=== PATIENT | male | born 1960 | race Caucasian/White ===

== ENCOUNTER 2017-03-19 15:08 | Emergency (ER) | payer MEDICAID ==
[~2017-03-19] VITALS: Ht 188 cm; Wt 109.0 kg
[~2017-03-19 15:08] MED LIST: ACET-1757 PO; ACET-1757 PR; AMOX1TAB12 PO; AMOX1TAB64 PO; CIPR500T3 PO; CLIN300C8 PO; DIPH1TAB PO; DOCU-131 PO; ENOX40SY4 SQ; FOLI-17 PO; GLIP5TAB10 PO; HYDR-3237 PO; INSU100I28 SQ-INSULIN; INSU100V5 SQ-INSULIN; LACT1CAP24 PO; LISI2.5T PO; LISINOPRIL; METF850T2 PO; METFORMIN; MULT-257 PO; NYST15CR2 TP; PANT40TA3 PO; SENN-31 PO; THIA100T10 PO; VITS5OIN TP; [UNRECOGNIZED DRUG - OTHER]
[2017-03-19] MEDS ORDERED: SODIUM CHLORIDE FLUSH 10ML SYR IVF ONE (15:30)
[2017-03-19] MEDS ORDERED: ASPIRIN 81 MG TABLET CHEW PO ONE (15:30)
[2017-03-19 15:41] LABS: HEMATOCRIT 44.7 % (39.2-51.8); HEMOGLOBIN 15.1 g/dL (13.7-18.0); WHITE BLOOD COUNT 7.8 x10^3/uL (3.4-10)
[2017-03-19 15:55] LABS: BLOOD UREA NITROGEN 13 mg/dL (7-18)
[2017-03-19 16:02] LABS: IS PT STATUS REG ER OR PRE ER? YES
[2017-03-19 16:55] VITALS: BP 136/92
== END 2017-03-19 17:29 | disposition home or self-care (01) ==
LOC: ED 17:23
DX: R42 Dizziness and giddiness (principal); H61.22 Impacted cerumen, left ear; I10 Essential (primary) hypertension; J45.909 Unspecified asthma, uncomplicated; E11.40 Type 2 diabetes mellitus with diabetic neuropathy, unspecified; Z86.718 Personal history of other venous thrombosis and embolism; Z91.14 Patient's other noncompliance with medication regimen
CPT/HCPCS: 36415; 71020; 80048; 82040; 83880; 84484; 85025; 93005; 99285

== ENCOUNTER 2017-04-10 07:30 | Emergency (ER) | payer SELFPAY ==
[~2017-04-10] VITALS: Ht 188 cm; Wt 118.7 kg
[2017-04-10] MEDS ORDERED: ALBUTEROL SULFATE 2.5 MG/3 ML NPPB ONE (08:00)
[2017-04-10] MEDS ORDERED: ALBUTEROL SULFATE 2.5 MG/3 ML ONE (08:07)
[2017-04-10 08:27] VITALS: BP 97/53
== END 2017-04-10 08:51 | disposition home or self-care (01) ==
LOC: ED 08:45
DX: J98.01 Acute bronchospasm (principal); I10 Essential (primary) hypertension; E66.9 Obesity, unspecified
CPT/HCPCS: 71020; 99284; J7613

== ENCOUNTER 2017-05-13 11:48 | Inpatient (IN) | payer MEDICAID, OTHER ==
[~2017-05-13] VITALS: Ht 188 cm; Wt 104.6 kg
[2017-05-13] MEDS ORDERED: SODIUM CHLORIDE 0.9% 1,000 ML IV ONE (12:22)
[2017-05-13] MEDS ORDERED: SODIUM CHLORIDE FLUSH 10ML SYR IVF ONE (12:30)
[2017-05-13] MEDS ORDERED: ASPIRIN 81 MG TABLET CHEW PO ONE (12:30)
[2017-05-13] MEDS ORDERED: ASPIRIN 81 MG TABLET CHEW ONE (12:32)
[2017-05-13 12:38] LABS: BASOPHILS # (AUTO) 0.03 x10^3/uL (0-0.1); BASOPHILS % (AUTO) 0 % (0-1); EOSINOPHILS # (AUTO) 0.09 x10^3/uL (0-0.4); EOSINOPHILS % (AUTO) 1 % (1-7); LYMPHOCYTES # (AUTO) 2.01 x10^3/uL (1-3.4); LYMPHOCYTES % (AUTO) 25 % (22-44); MD NO; MEAN CORPUSCULAR HEMOGLOBIN 31.1 pg (27.5-34.5); MEAN CORPUSCULAR HGB CONC 33.5 g/dL (33.2-36.2); MEAN CORPUSCULAR VOLUME 92.7 fL (81-97); MEAN PLATELET VOLUME 7.8 fL (7.4-10.4); MONOCYTES # (AUTO) 0.53 x10^3/uL (0.2-0.8); MONOCYTES % (AUTO) 7 % (2-9); NEUTROPHILS # (AUTO) 5.35 x10^3/uL (1.8-6.8); NEUTROPHILS % (AUTO) 67 % (42-75); PLATELET COUNT 181 x10^3/uL (130-400); RED CELL DISTRIBUTION WIDTH 14.1 % (9.4-14.8)
[2017-05-13 12:50] LABS: ALANINE AMINOTRANSFERASE 14 U/L (12-78); ALBUMIN 2.8 g/dL (3.4-5.0); ANION GAP 7 mmol/L (5-15); CALCIUM 7.8 mg/dL (8.5-10.1); CHLORIDE 106 mmol/L (98-107); CREATININE 1.11 mg/dL (0.7-1.3)
[2017-05-13 12:54] LABS: ALKALINE PHOSPHATASE 100 U/L (45-117); BILIRUBIN,TOTAL 0.4 mg/dL (0.2-1.0); TOTAL PROTEIN 6.6 g/dL (6.4-8.2); TROPONIN I < 0.015 ng/mL (0.000-0.045)
[2017-05-13 14:32] VITALS: BP 123/81
[2017-05-13] MEDS ORDERED: GUAIFENESIN/DM 200-20MG, 10ML UDC PO PRN (15:00)
[2017-05-13] MEDS ORDERED: ONDANSETRON 2MG/ML, 2ML IVPush PRN (15:00)
[2017-05-13] MEDS ORDERED: ACETAMINOPHEN 325 MG TABLET PO PRN (15:00)
[2017-05-13] MEDS ORDERED: NITROGLYCERIN 0.4 MG BOTTLE (25 TABS) SL PRN (15:00)
[2017-05-13] MEDS: CEFTRIAXONE 2 GM in DEXTROSE 5% 50 ML IV SCH (16:30)
[2017-05-13] MEDS: ENOXAPARIN 40 MG/0.4 ML SQ SCH (16:36)
[2017-05-13] MEDS: INSULIN ASPART 100 UNITS/ML, PEN SQ-INSULIN SCH ×2 (16:40→20:08)
[2017-05-13] MEDS: AZITHROMYCIN 500 MG in SODIUM CHLORIDE 0.9% 250 ML IV SCH (17:51)
[2017-05-13 19:05] LABS: TROPONIN I < 0.015 ng/mL (0.000-0.045)
[2017-05-13 19:09] LABS: HEMOGLOBIN A1C 7.9 % (4.2-6.3)
[2017-05-13 19:39] VITALS: BP 125/71
[2017-05-13] MEDS: ZOLPIDEM 5MG TABLET PO PRN (20:35)
[2017-05-14 03:33] LABS: CHOL/HDL RATIO 2.9; CHOLESTEROL, TOTAL 132 mg/dL (140-239); HDL CHOL % 35 % (26-37); HDL CHOLESTEROL (DIRECT) 46 mg/dL (40-60); LDL CHOLESTEROL,CALCULATED 67 mg/dL (54-169); LDL/HDL RATIO 1.5 (0.5-3.0); TRIGLYCERIDES 97 mg/dL (50-200); TROPONIN I < 0.015 ng/mL (0.000-0.045); VLDL CHOLESTEROL 19 mg/dL (0-25)
[2017-05-14 04:09] VITALS: BP 130/73
[2017-05-14 07:24] VITALS: BP 147/92
[2017-05-14] MEDS ORDERED: REGADENOSON 0.4 MG/5 ML SYRINGE ONE (07:42)
[2017-05-14] MEDS: INSULIN ASPART 100 UNITS/ML, PEN SQ-INSULIN SCH ×4 (09:18→20:21)
[2017-05-14] MEDS ORDERED: FUROSEMIDE 40 MG/4 ML IV ONE (13:30)
[2017-05-14] MEDS ORDERED: POTASSIUM CHLORIDE 20 MEQ TAB.ER.PRT PO ONE (13:30)
[2017-05-14] MEDS ORDERED: VERAPAMIL 2.5 MG/ML, 2ML ONE (13:46)
[2017-05-14] MEDS ORDERED: BIVALIRUDIN 250 MG ONE (13:46)
[2017-05-14] MEDS ORDERED: TICAGRELOR 90 MG TABLET ONE (13:46)
[2017-05-14] MEDS ORDERED: FENTANYL PF 100 MCG/2ML ONE (13:46)
[2017-05-14] MEDS ORDERED: LIDOCAINE 2%, 20ML ONE (13:47)
[2017-05-14] MEDS ORDERED: HEPARIN 1,000 UNITS/ML, 10ML ONE (13:47)
[2017-05-14] MEDS ORDERED: MIDAZOLAM 1 MG/ML, 2ML ONE (13:47)
[2017-05-14] MEDS ORDERED: FLU VACC QS2017-18 (36MOS+) UP/PF 0.5 ML IM-VACC ONE (14:00)
[2017-05-14] MEDS ORDERED: DIPHENHYDRAMINE 50 MG/ML, 1ML ONE (14:45)
[2017-05-14 15:00] VITALS: BP 122/78
[2017-05-14] MEDS ORDERED: SODIUM CHLORIDE 0.9% 1,000 ML IV SCH (15:06)
[2017-05-14] MEDS: ASPIRIN 325 MG TABLET PO SCH (16:56)
[2017-05-14] MEDS: CEFTRIAXONE 2 GM in DEXTROSE 5% 50 ML IV SCH (16:56)
[2017-05-14] MEDS: CARVEDILOL 3.125 MG TABLET PO SCH (16:57)
[2017-05-14] MEDS: ENOXAPARIN 40 MG/0.4 ML SQ SCH (16:58)
[2017-05-14 18:18] VITALS: BP 109/67
[2017-05-14] MEDS: AZITHROMYCIN 500 MG in SODIUM CHLORIDE 0.9% 250 ML IV SCH (18:24)
[2017-05-14] MEDS ORDERED: ATORVASTATIN 40 MG TABLET PO SCH (21:00)
[2017-05-14] MEDS ORDERED: ATORVASTATIN 20 MG TABLET PO SCH (21:00)
[2017-05-14] MEDS: ZOLPIDEM 5MG TABLET PO PRN (22:31)
[2017-05-15 05:22] VITALS: BP 116/85
[2017-05-15] MEDS: CARVEDILOL 3.125 MG TABLET PO SCH (05:25)
[2017-05-15] MEDS ORDERED: ISOSORBIDE MONONITRATE ER 30 MG TABLET ONE (07:53)
[2017-05-15] MEDS ORDERED: LISINOPRIL 5 MG TABLET ONE (07:53)
[2017-05-15] MEDS: ASPIRIN 325 MG TABLET PO SCH (07:57)
[2017-05-15 08:00] VITALS: BP 129/82
[2017-05-15] MEDS: INSULIN ASPART 100 UNITS/ML, PEN SQ-INSULIN SCH ×2 (08:04→12:24)
[2017-05-15] MEDS ORDERED: ISOSORBIDE MONONITRATE ER 30 MG TABLET PO SCH (09:00)
[2017-05-15] MEDS ORDERED: LISINOPRIL 5 MG TABLET PO SCH (09:00)
[2017-05-15] MEDS ORDERED: CARV3.1212 PO (10:06)
[2017-05-15] MEDS ORDERED: ASPI-621 PO (10:06)
[2017-05-15] MEDS ORDERED: LISI5TAB7 PO (10:06)
[2017-05-15] MEDS ORDERED: CEFD300C37 PO (10:06)
[2017-05-15] MEDS ORDERED: ATOR40TA78 PO (10:06)
[2017-05-15] MEDS ORDERED: DOXY100T PO (10:06)
[2017-05-15] MEDS ORDERED: ISOS30TA8 PO (10:06)
[2017-05-16] MEDS ORDERED: ALBU6.7H IH (10:48)
[2017-05-16] MEDS ORDERED: METH4TAB2 PO (10:48)
== END 2017-05-15 13:28 | disposition home or self-care (01) | DRG 286 ==
LOC: ED 13:16 → 5SO 13:20
PROVIDERS: ADMIT Internal Medicine; ATTEND Internal Medicine
PROC: 4A023N7 Measurement of Cardiac Sampling and Pressure, Left Heart, Percutaneous Approach (ICD-10-PCS; principal; 2017-05-14)
PROC: B2111ZZ Fluoroscopy of Multiple Coronary Arteries using Low Osmolar Contrast (ICD-10-PCS; 2017-05-14)
PROC: B2151ZZ Fluoroscopy of Left Heart using Low Osmolar Contrast (ICD-10-PCS; 2017-05-14)
DX: I25.110 Atherosclerotic heart disease of native coronary artery with unstable angina pectoris (principal); J18.9 Pneumonia, unspecified organism; I42.9 Cardiomyopathy, unspecified; I25.82 Chronic total occlusion of coronary artery; I11.0 Hypertensive heart disease with heart failure; I50.20 Unspecified systolic (congestive) heart failure; M86.9 Osteomyelitis, unspecified; E11.9 Type 2 diabetes mellitus without complications; I45.4 Nonspecific intraventricular block; Y99.0 Civilian activity done for income or pay; Z79.84 Long term (current) use of oral hypoglycemic drugs; Z89.429 Acquired absence of other toe(s), unspecified side; Z79.82 Long term (current) use of aspirin; Z82.49 Family history of ischemic heart disease and other diseases of the circulatory system; Z82.3 Family history of stroke; Z23 Encounter for immunization
CPT/HCPCS: 36415; 71045; 78452; 80053; 80061; 82947; 82962; 83036; 84484; 85025; 90686; 92920; 93005; 93017; 93458; 99156; 99157; 99285; C1769; C1894; C8929; J0456; J0583; J0696; J1644; J1650; J1940; J2250; J2785; J3010; J3490; 92928; A9502; C1725; C1887; C9898; J1200; J7030; J7050; Q9967

== ENCOUNTER 2017-05-15 13:48 | Inpatient (IN) | payer MEDICAID ==
[~2017-05-15] VITALS: Ht 188 cm; Wt 114.0 kg
[~2017-05-15 13:48] MED LIST changes: +ASPI-621 PO; +ATOR40TA78 PO; +CARV3.1212 PO; +CEFD300C37 PO; +DOXY100T PO; +ISOS30TA8 PO; +LISI5TAB7 PO
[2017-05-15] MEDS ORDERED: SODIUM CHLORIDE FLUSH 10ML SYR IVF ONE (14:00)
[2017-05-15 14:41] LABS: BASOPHILS # (AUTO) 0.08 x10^3/uL (0-0.1); BASOPHILS % (AUTO) 1 % (0-1); EOSINOPHILS # (AUTO) 0.11 x10^3/uL (0-0.4); EOSINOPHILS % (AUTO) 1 % (1-7); LYMPHOCYTES # (AUTO) 1.49 x10^3/uL (1-3.4); LYMPHOCYTES % (AUTO) 19 % (22-44); MD NO; MEAN CORPUSCULAR HEMOGLOBIN 30.9 pg (27.5-34.5); MEAN CORPUSCULAR HGB CONC 33.5 g/dL (33.2-36.2); MEAN CORPUSCULAR VOLUME 92.3 fL (81-97); MEAN PLATELET VOLUME 7.9 fL (7.4-10.4); MONOCYTES # (AUTO) 0.62 x10^3/uL (0.2-0.8); MONOCYTES % (AUTO) 8 % (2-9); NEUTROPHILS # (AUTO) 5.64 x10^3/uL (1.8-6.8); NEUTROPHILS % (AUTO) 71 % (42-75); PLATELET COUNT 209 x10^3/uL (130-400); RED BLOOD COUNT 4.98 x10^6/uL (4.38-5.82)
[2017-05-15 14:50] LABS: ALBUMIN 3.2 g/dL (3.4-5.0); ANION GAP 11 mmol/L (5-15); CALCIUM 8.6 mg/dL (8.5-10.1); CHLORIDE 100 mmol/L (98-107); CREATININE 1.51 mg/dL (0.7-1.3)
[2017-05-15 14:55] LABS: TROPONIN I < 0.015 ng/mL (0.000-0.045)
[2017-05-15] MEDS ORDERED: SODIUM CHLORIDE 0.9% 1,000ML IVBOLUS ONE (15:00)
[2017-05-15] MEDS ORDERED: SODIUM CHLORIDE 0.9% 1,000 ML IV SCH (16:30)
[2017-05-15] MEDS ORDERED: ACETAMINOPHEN 325 MG TABLET PO PRN (16:30)
[2017-05-15] MEDS ORDERED: HEPARIN 5,000 UNITS/ML, 1ML ONE (17:02)
[2017-05-15] MEDS: HEPARIN 5,000 UNITS/ML, 1ML SQ SCH (17:08)
[2017-05-15 17:42] VITALS: BP 98/66
[2017-05-15] MEDS: CARVEDILOL 3.125 MG TABLET PO SCH (18:00)
[2017-05-15 18:01] VITALS: BP 98/66
[2017-05-15] MEDS ORDERED: ATORVASTATIN 40 MG TABLET PO SCH (21:00)
[2017-05-15] MEDS ORDERED: ZOLPIDEM 5MG TABLET PO PRN (21:00)
[2017-05-15] MEDS: CEFDINIR 300 MG CAPSULE PO SCH (21:06)
[2017-05-15] MEDS: GUAIFENESIN ER 600 MG TABLET PO SCH (21:06)
[2017-05-15] MEDS: DOXYCYCLINE 100MG TABLET PO SCH (21:06)
[2017-05-15 21:37] VITALS: BP 115/71
[2017-05-15 21:40] VITALS: BP 101/66
[2017-05-15 21:42] VITALS: BP 101/71
[2017-05-16] MEDS: HEPARIN 5,000 UNITS/ML, 1ML SQ SCH ×2 (01:14→08:30)
[2017-05-16 01:19] VITALS: BP 117/76
[2017-05-16 05:15] LABS: MEAN CORPUSCULAR HEMOGLOBIN 31.7 pg (27.5-34.5); MEAN CORPUSCULAR HGB CONC 33.8 g/dL (33.2-36.2); PLATELET COUNT 170 x10^3/uL (130-400); RED BLOOD COUNT 4.28 x10^6/uL (4.38-5.82)
[2017-05-16 05:25] LABS: ALBUMIN 2.7 g/dL (3.4-5.0); CALCIUM 8.4 mg/dL (8.5-10.1)
[2017-05-16] MEDS: CARVEDILOL 3.125 MG TABLET PO SCH (05:49)
[2017-05-16 05:50] LABS: RED CELL DISTRIBUTION WIDTH 14.2 % (9.4-14.8)
[2017-05-16 05:52] LABS: BASOPHILS # (AUTO) 0.05 x10^3/uL (0-0.1); BASOPHILS % (AUTO) 1 % (0-1); EOSINOPHILS # (AUTO) 0.14 x10^3/uL (0-0.4); EOSINOPHILS % (AUTO) 3 % (1-7); LYMPHOCYTES % (AUTO) 32 % (22-44); MD SCAN; MONOCYTES # (AUTO) 0.49 x10^3/uL (0.2-0.8); MONOCYTES % (AUTO) 9 % (2-9); NEUTROPHILS # (AUTO) 2.94 x10^3/uL (1.8-6.8); NEUTROPHILS % (AUTO) 55 % (42-75)
[2017-05-16 06:39] LABS: ALANINE AMINOTRANSFERASE 12 U/L (12-78); ALKALINE PHOSPHATASE 74 U/L (45-117); ANION GAP 9 mmol/L (5-15); BILIRUBIN,TOTAL 0.4 mg/dL (0.2-1.0); CHLORIDE 108 mmol/L (98-107); CREATININE 0.87 mg/dL (0.7-1.3)
[2017-05-16 08:00] VITALS: BP 140/81
[2017-05-16] MEDS: DOXYCYCLINE 100MG TABLET PO SCH (08:27)
[2017-05-16] MEDS: GUAIFENESIN ER 600 MG TABLET PO SCH (08:27)
[2017-05-16] MEDS: CEFDINIR 300 MG CAPSULE PO SCH (08:28)
[2017-05-16] MEDS ORDERED: LISINOPRIL 5 MG TABLET PO SCH (09:00)
[2017-05-16] MEDS ORDERED: ASPIRIN 81 MG TABLET EC PO SCH (09:00)
[2017-05-16 09:05] VITALS: BP 124/82
[2017-05-16] MEDS ORDERED: ALBU6.7H IH (10:48)
[2017-05-16] MEDS ORDERED: METH4TAB2 PO (10:48)
[2017-05-16] MEDS ORDERED: methylPREDNISolone 4mg DOSE PACK PO SCH (11:00)
[2017-05-16 11:08] VITALS: BP_SYST 128; BP_SYST 132; BP_DIAS 80; BP_DIAS 82; BP_DIAS 84
== END 2017-05-16 13:33 | disposition home or self-care (01) | DRG 682 ==
LOC: ED 14:45 → EDIP 15:18 → 4WST 17:32
PROVIDERS: ADMIT Family Medicine; ATTEND Family Medicine
DX: N17.0 Acute kidney failure with tubular necrosis (principal); J18.9 Pneumonia, unspecified organism; E11.40 Type 2 diabetes mellitus with diabetic neuropathy, unspecified; I11.0 Hypertensive heart disease with heart failure; I42.9 Cardiomyopathy, unspecified; I50.22 Chronic systolic (congestive) heart failure; I25.10 Atherosclerotic heart disease of native coronary artery without angina pectoris; I34.0 Nonrheumatic mitral (valve) insufficiency; J45.909 Unspecified asthma, uncomplicated; T50.2X5A Adverse effect of carbonic-anhydrase inhibitors, benzothiadiazides and other diuretics, initial encounter; Z79.84 Long term (current) use of oral hypoglycemic drugs; Z82.49 Family history of ischemic heart disease and other diseases of the circulatory system; Z86.711 Personal history of pulmonary embolism; Z95.5 Presence of coronary angioplasty implant and graft; Z89.429 Acquired absence of other toe(s), unspecified side
CPT/HCPCS: 36415; 71046; 80048; 80053; 82040; 83605; 84484; 85025; 93005; 96360; 96372; J1644; J7509; J7030

== ENCOUNTER 2017-05-30 09:17 | Emergency (ER) | payer MEDICAID ==
[~2017-05-30] VITALS: Ht 188 cm; Wt 115.7 kg
[~2017-05-30 09:17] MED LIST changes: +ALBU6.7H IH; +METH4TAB2 PO
[2017-05-30 10:01] LABS: BASOPHILS # (AUTO) 0.15 x10^3/uL (0-0.1); BASOPHILS % (AUTO) 2 % (0-1); EOSINOPHILS # (AUTO) 0.26 x10^3/uL (0-0.4); EOSINOPHILS % (AUTO) 3 % (1-7); LYMPHOCYTES # (AUTO) 2.54 x10^3/uL (1-3.4); LYMPHOCYTES % (AUTO) 25 % (22-44); MD NO; MEAN CORPUSCULAR HEMOGLOBIN 31.1 pg (27.5-34.5); MEAN CORPUSCULAR HGB CONC 33.4 g/dL (33.2-36.2); MEAN CORPUSCULAR VOLUME 93.3 fL (81-97); MEAN PLATELET VOLUME 7.8 fL (7.4-10.4); MONOCYTES # (AUTO) 0.69 x10^3/uL (0.2-0.8); MONOCYTES % (AUTO) 7 % (2-9); NEUTROPHILS # (AUTO) 6.45 x10^3/uL (1.8-6.8); NEUTROPHILS % (AUTO) 64 % (42-75); PLATELET COUNT 297 x10^3/uL (130-400); RED BLOOD COUNT 5.07 x10^6/uL (4.38-5.82); RED CELL DISTRIBUTION WIDTH 14.9 % (9.4-14.8)
[2017-05-30 10:08] LABS: ALBUMIN 3.6 g/dL (3.4-5.0); ANION GAP 9 mmol/L (5-15); CALCIUM 8.9 mg/dL (8.5-10.1); CHLORIDE 103 mmol/L (98-107); CREATININE 1.01 mg/dL (0.7-1.3); HIGH-SENSITIVITY CRP 0.26 mg/dL (0.02-0.30)
[2017-05-30 10:58] LABS: HEMOGLOBIN A1C 7.4 % (4.2-6.3)
[2017-05-30 11:02] VITALS: BP 127/74
== END 2017-05-30 11:07 | disposition home or self-care (01) ==
LOC: ED 09:35
DX: E11.649 Type 2 diabetes mellitus with hypoglycemia without coma (principal); E11.40 Type 2 diabetes mellitus with diabetic neuropathy, unspecified; I50.9 Heart failure, unspecified; I11.0 Hypertensive heart disease with heart failure; M86.9 Osteomyelitis, unspecified; J45.909 Unspecified asthma, uncomplicated; Z86.711 Personal history of pulmonary embolism
CPT/HCPCS: 36415; 70551; 80048; 82040; 83036; 85025; 86141; 93005; 99285

== ENCOUNTER → 2017-07-03 | Outpatient (CLI) | payer MEDICAID | LOC: CVU 07:31 | PROVIDERS: ATTEND Internal Medicine Cardiovascular Disease | DX: I42.9 Cardiomyopathy, unspecified (principal); E11.9 Type 2 diabetes mellitus without complications; I10 Essential (primary) hypertension | CPT/HCPCS: C8929 ==

== ENCOUNTER 2017-09-06 12:27 | Emergency (ER) | payer MEDICAID ==
[~2017-09-06] VITALS: Ht 188 cm; Wt 118.0 kg
[2017-09-06] MEDS ORDERED: METF500T4 PO (13:12)
[2017-09-06] MEDS ORDERED: GLIP5TAB10 PO (13:12)
[2017-09-06] MEDS ORDERED: LISI-170 PO (13:12)
[2017-09-06] MEDS ORDERED: ALBUTEROL/IPRATROPIUM 2.5MG/0.5MG, 3 ML ONE (13:24)
[2017-09-06 13:25] LABS: BASOPHILS # (AUTO) 0.09 x10^3/uL (0-0.1); BASOPHILS % (AUTO) 1 % (0-1); EOSINOPHILS # (AUTO) 0.24 x10^3/uL (0-0.4); EOSINOPHILS % (AUTO) 3 % (1-7); LYMPHOCYTES # (AUTO) 1.93 x10^3/uL (1-3.4); LYMPHOCYTES % (AUTO) 22 % (22-44); MD NO; MEAN CORPUSCULAR HEMOGLOBIN 31.5 pg (27.5-34.5); MEAN CORPUSCULAR HGB CONC 33.3 g/dL (33.2-36.2); MEAN CORPUSCULAR VOLUME 94.6 fL (81-97); MEAN PLATELET VOLUME 7.6 fL (7.4-10.4); MONOCYTES # (AUTO) 0.68 x10^3/uL (0.2-0.8); MONOCYTES % (AUTO) 8 % (2-9); NEUTROPHILS # (AUTO) 5.99 x10^3/uL (1.8-6.8); NEUTROPHILS % (AUTO) 67 % (42-75); PLATELET COUNT 291 x10^3/uL (130-400); RED BLOOD COUNT 3.96 x10^6/uL (4.38-5.82); RED CELL DISTRIBUTION WIDTH 13.9 % (9.4-14.8)
[2017-09-06] MEDS ORDERED: methylPREDNISolone SOD SUCC 125 MG/2 ML IVP ONE (13:30)
[2017-09-06] MEDS ORDERED: ALBUTEROL/IPRATROPIUM 2.5MG/0.5MG, 3 ML NPPB ONE (13:30)
[2017-09-06] MEDS ORDERED: methylPREDNISolone SOD SUCC 125 MG/2 ML ONE (13:32)
[2017-09-06 13:36] LABS: D-DIMER 0.83 ug/mlFEU (0.00-0.52); PROTHROMBIN TIME 10.4 Seconds (9.6-11.5)
[2017-09-06 13:39] LABS: ALANINE AMINOTRANSFERASE 18 U/L (12-78); ALBUMIN 2.7 g/dL (3.4-5.0); ANION GAP 6 mmol/L (5-15); CHLORIDE 107 mmol/L (98-107); CREATININE 0.97 mg/dL (0.7-1.3)
[2017-09-06 13:44] LABS: ALKALINE PHOSPHATASE 94 U/L (45-117); BILIRUBIN,TOTAL 0.4 mg/dL (0.2-1.0); TOTAL PROTEIN 6.4 g/dL (6.4-8.2); TROPONIN I < 0.015 ng/mL (0.000-0.045)
[2017-09-06] MEDS ORDERED: OMNIPAQUE 350 MG/ML, 100ML BOTTLE ONE (14:36)
[2017-09-06 15:03] VITALS: BP 112/70
== END 2017-09-06 15:26 | disposition home or self-care (01) ==
LOC: ED 15:20
DX: J45.51 Severe persistent asthma with (acute) exacerbation (principal); I11.0 Hypertensive heart disease with heart failure; I50.9 Heart failure, unspecified; E11.40 Type 2 diabetes mellitus with diabetic neuropathy, unspecified; Z86.711 Personal history of pulmonary embolism; Z86.718 Personal history of other venous thrombosis and embolism
CPT/HCPCS: 36415; 71045; 71275; 80053; 83880; 84145; 84484; 85025; 85379; 85610; 85730; 93005; 94640; 96374; 99285; J2930; Q9967; J7620

== ENCOUNTER 2017-09-15 11:14 | Emergency (ER) | payer MEDICAID ==
[~2017-09-15] VITALS: Ht 188 cm; Wt 116.8 kg
[~2017-09-15 11:14] MED LIST changes: +LISI-170 PO; +METF500T4 PO
[2017-09-15 11:18] VITALS: BP 118/75
[2017-09-15] MEDS ORDERED: ALBUTEROL/IPRATROPIUM 2.5MG/0.5MG, 3 ML NPPB ONE (12:30)
[2017-09-15] MEDS ORDERED: ALBUTEROL/IPRATROPIUM 2.5MG/0.5MG, 3 ML ONE (12:49)
== END 2017-09-15 13:34 | disposition home or self-care (01) ==
LOC: ED 13:00
DX: R05 Cough (principal); R09.3 Abnormal sputum; J34.89 Other specified disorders of nose and nasal sinuses; J45.909 Unspecified asthma, uncomplicated; I11.0 Hypertensive heart disease with heart failure; I50.9 Heart failure, unspecified; E11.40 Type 2 diabetes mellitus with diabetic neuropathy, unspecified; Z86.718 Personal history of other venous thrombosis and embolism; Z86.711 Personal history of pulmonary embolism
CPT/HCPCS: 71046; 94640; 99284; J7512; J7620

== ENCOUNTER 2017-10-17 21:08 | Emergency (ER) | payer MEDICAID ==
[~2017-10-17] VITALS: Ht 188 cm; Wt 105.0 kg
[~2017-10-17 21:08] MED LIST changes: -METF500T4 PO; +METF500T5 PO
[2017-10-17 21:16] VITALS: BP 102/68
== END 2017-10-17 22:23 | disposition home or self-care (01) ==
LOC: ED 22:00
DX: F10.220 Alcohol dependence with intoxication, uncomplicated (principal); I11.0 Hypertensive heart disease with heart failure; I50.9 Heart failure, unspecified; E11.9 Type 2 diabetes mellitus without complications; Z89.9 Acquired absence of limb, unspecified; Z86.711 Personal history of pulmonary embolism; Z86.718 Personal history of other venous thrombosis and embolism
CPT/HCPCS: 99283

== ENCOUNTER 2018-05-29 20:10 | Emergency (ER) | payer MEDICAID ==
[~2018-05-29] VITALS: Ht 188 cm; Wt 112.4 kg
[~2018-05-29 20:10] MED LIST changes: -ASPI-621 PO; +ASPI81TA45 PO; +METF500T17 PO; -METF500T5 PO; +METF850T10 PO; -METF850T2 PO
[2018-05-29 22:10] LABS: BASOPHILS # (AUTO) 0.07 x10^3/uL (0-0.1); BASOPHILS % (AUTO) 1 % (0-1); EOSINOPHILS # (AUTO) 0.74 x10^3/uL (0-0.4); EOSINOPHILS % (AUTO) 8 % (1-7); LYMPHOCYTES # (AUTO) 2.51 x10^3/uL (1-3.4); LYMPHOCYTES % (AUTO) 27 % (22-44); MD NO; MEAN CORPUSCULAR HEMOGLOBIN 30.8 pg (27.5-34.5); MEAN CORPUSCULAR HGB CONC 33.4 g/dL (33.2-36.2); MEAN CORPUSCULAR VOLUME 92.3 fL (81-97); MONOCYTES # (AUTO) 0.79 x10^3/uL (0.2-0.8); MONOCYTES % (AUTO) 9 % (2-9); NEUTROPHILS # (AUTO) 5.04 x10^3/uL (1.8-6.8); NEUTROPHILS % (AUTO) 55 % (42-75); PLATELET COUNT 270 x10^3/uL (130-400); RED BLOOD COUNT 4.05 x10^6/uL (4.38-5.82); RED CELL DISTRIBUTION WIDTH 14.1 % (9.4-14.8)
--- NOTE | 2018-05-29 22:20 | NUR ---
pt resting in bed, vss, no acute complaints at this time
[2018-05-29 22:22] LABS: ANION GAP 5 mmol/L (5-15); CALCIUM 8.6 mg/dL (8.5-10.1); CHLORIDE 108 mmol/L (98-107); CREATININE 0.87 mg/dL (0.7-1.3)
[2018-05-29] MEDS ORDERED: ALBUTEROL SULFATE 2.5 MG/3 ML NPPB ONE (23:00)
--- NOTE | 2018-05-29 23:42 | NUR ---
URINE SENT, PT RESTING IN BED, NO COMPLAINTS
[2018-05-29 23:57] LABS: MICROSCOPIC NOT IND
[2018-05-30 00:09] LABS: CULTURE INDICATED? NO
[2018-05-30 01:39] VITALS: BP 110/72
[2018-05-31] MEDS ORDERED: ALBU18HF INH (21:53)
== END 2018-05-30 01:41 | disposition home or self-care (01) ==
LOC: ED 23:55
DX: R05 Cough (principal); N50.811 Right testicular pain; E11.9 Type 2 diabetes mellitus without complications; J45.909 Unspecified asthma, uncomplicated; I11.0 Hypertensive heart disease with heart failure; I50.9 Heart failure, unspecified; Z86.718 Personal history of other venous thrombosis and embolism
CPT/HCPCS: 36415; 71046; 76870; 80048; 81003; 82040; 85025; 93005; 94640; 99284; J7613

== ENCOUNTER 2018-05-31 16:08 | Inpatient (IN) | payer MEDICAID ==
[~2018-05-31] VITALS: Ht 188 cm; Wt 101.9 kg
[2018-05-31 16:48] LABS: BASOPHILS # (AUTO) 0.03 x10^3/uL (0-0.1); BASOPHILS % (AUTO) 0 % (0-1); EOSINOPHILS # (AUTO) 0.19 x10^3/uL (0-0.4); EOSINOPHILS % (AUTO) 2 % (1-7); LYMPHOCYTES % (AUTO) 17 % (22-44); MD NO; MEAN CORPUSCULAR HGB CONC 32.7 g/dL (33.2-36.2); MEAN CORPUSCULAR VOLUME 91.6 fL (81-97); MEAN PLATELET VOLUME 7.8 fL (7.4-10.4); MONOCYTES # (AUTO) 0.79 x10^3/uL (0.2-0.8); MONOCYTES % (AUTO) 7 % (2-9); NEUTROPHILS # (AUTO) 7.99 x10^3/uL (1.8-6.8); NEUTROPHILS % (AUTO) 74 % (42-75); PLATELET COUNT 239 x10^3/uL (130-400); RED BLOOD COUNT 4.11 x10^6/uL (4.38-5.82); RED CELL DISTRIBUTION WIDTH 14.2 % (9.4-14.8)
[2018-05-31 16:59] LABS: ANION GAP 7 mmol/L (5-15); CALCIUM 8.5 mg/dL (8.5-10.1); CHLORIDE 106 mmol/L (98-107)
[2018-05-31] MEDS ORDERED: IBUPROFEN 600 MG TABLET PO ONE (17:00)
[2018-05-31] MEDS ORDERED: SODIUM CHLORIDE FLUSH 10ML SYR IVF ONE (17:00)
[2018-05-31] MEDS ORDERED: SODIUM CHLORIDE 0.9% 1,000ML IVBOLUS ONE (17:00)
[2018-05-31 17:03] LABS: ALANINE AMINOTRANSFERASE 18 U/L (12-78); ALKALINE PHOSPHATASE 108 U/L (45-117); BILIRUBIN,TOTAL 0.3 mg/dL (0.2-1.0); CREATININE 0.97 mg/dL (0.7-1.3); TOTAL PROTEIN 6.8 g/dL (6.4-8.2)
--- NOTE | 2018-05-31 17:12 | NUR ---
PT BIB P/V WITH INCREASING PAIN TO FOOT WITH RECENT TREATMENT AT [facility] FOR FOOT INFECTION. PT IS DIABETIC. PT REPORTS THAT HE FINISHED COURSE OF AUGMENTIN 2 WEEKS AGO AND INFECTION IN HIS FOOT WAS BACK 4 DAYS LATER. PT WAS HERE TWO DAYS AGO FOR DIZZINESS. XRAY INDICATES POSSIBLE OSTEOMYELITIS. LAB AT BEDSIDE DRAWING BLOOD CULTURES.
[2018-05-31] MEDS ORDERED: VANCOMYCIN PER PHARMACY MC PRN ×2 (17:30→20:00)
[2018-05-31] MEDS ORDERED: IBUPROFEN 600 MG TABLET ONE (17:41)
--- NOTE | 2018-05-31 17:57 | NUR ---
TASK RN: UNABLE TO INITIATE IV, IVF, AND IV ANTX PT IS CURRENTLY IN IMAGING.
[2018-05-31] MEDS ORDERED: VANCOMYCIN 2,000 MG in SODIUM CHLORIDE 0.9% 500 ML IV ONE (18:00)
--- NOTE | 2018-05-31 18:35 | NUR ---
ANTIBIOTICS STARTED AFTER BLOOD CULTURES X 2 WERE DRAWN.
[2018-05-31 18:40] LABS: HCT (SEDRATE) 37.6 % (39.2-51.8)
--- NOTE | 2018-05-31 19:30 | NUR ---
PT REQUESTED FOOD. WAITING FOR ADMIT ORDER FOR FOOD. VSS.
[2018-05-31] MEDS ORDERED: PROMETHAZINE 25 MG/ML, 1ML IM PRN (20:00)
[2018-05-31] MEDS ORDERED: ACETAMINOPHEN 325 MG TABLET PO PRN (20:00)
[2018-05-31] MEDS ORDERED: LABETALOL 5MG/ML, 20ML IVPush PRN (20:00)
[2018-05-31] MEDS ORDERED: hydrALAzine 20 MG/ML, 1ML IVPush PRN (20:00)
[2018-05-31] MEDS ORDERED: BISACODYL 10 MG SUPP PR PRN (20:00)
[2018-05-31] MEDS ORDERED: ONDANSETRON 2MG/ML, 2ML IVPush PRN (20:00)
[2018-05-31] MEDS ORDERED: ONDANSETRON ODT 4 MG PO PRN (20:00)
[2018-05-31 20:21] LABS: C-REACTIVE PROTEIN, QUANT 5.5 mg/dL (0.02-0.49); FREE T4 (FREE THYROXINE) 0.91 ng/dL (0.76-1.46); THYROID STIMULATING HORMONE 0.923 mIU/L (0.358-3.740)
--- NOTE | 2018-05-31 20:26 | NUR ---
MEAL TRAY GIVEN TO PT. PT IS NPO AFTER MIDNIGHT PER DR. YING.
[2018-05-31] MEDS ORDERED: MORPHINE SULFATE 4 MG/ML, 1ML ONE (20:33)
[2018-05-31] MEDS: morphine SULFATE 10 MG/ML, 1ML IVPush PRN ×2 (20:35→23:53)
[2018-05-31 20:49] LABS: HEMOGLOBIN A1C 6.6 % (4.2-6.3)
--- NOTE | 2018-05-31 20:55 | NUR ---
PT MEDICATED FOR PAIN PER MD ORDER. REPORT CALLED TO [facility].
[2018-05-31] MEDS: SODIUM CHLORIDE 0.9% 1,000 ML IV SCH (21:34)
[2018-05-31 21:38] VITALS: BP 103/66
[2018-05-31] MEDS ORDERED: ALBU18HF INH (21:53)
[2018-05-31] MEDS: PIPERACILLIN/TAZO/PMX 3.375GM 50 ML IV SCH (23:16)
[2018-05-31] MEDS: INSULIN LISPRO 100 UNITS/ML, PEN SQ-INSULIN SCH (23:23)
[2018-06-01 01:53] VITALS: BP 105/63
[2018-06-01] MEDS: morphine SULFATE 10 MG/ML, 1ML IVPush PRN ×6 (03:04→22:14)
[2018-06-01] MEDS ORDERED: PHARMACOKINETIC CONSULTATION MC ONE (05:00)
[2018-06-01] MEDS: PIPERACILLIN/TAZO/PMX 3.375GM 50 ML IV SCH ×4 (05:00→22:55)
[2018-06-01] MEDS ORDERED: PHARMACOKINETIC MONITORING MC PRN (05:00)
[2018-06-01 05:18] LABS: BASOPHILS # (AUTO) 0.04 x10^3/uL (0-0.1); BASOPHILS % (AUTO) 1 % (0-1); EOSINOPHILS % (AUTO) 10 % (1-7); LYMPHOCYTES # (AUTO) 1.41 x10^3/uL (1-3.4); LYMPHOCYTES % (AUTO) 23 % (22-44); MD NO; MEAN CORPUSCULAR HEMOGLOBIN 31.5 pg (27.5-34.5); MEAN CORPUSCULAR VOLUME 92.7 fL (81-97); MONOCYTES # (AUTO) 0.68 x10^3/uL (0.2-0.8); MONOCYTES % (AUTO) 11 % (2-9); NEUTROPHILS # (AUTO) 3.54 x10^3/uL (1.8-6.8); NEUTROPHILS % (AUTO) 57 % (42-75); PLATELET COUNT 192 x10^3/uL (130-400); RED BLOOD COUNT 3.51 x10^6/uL (4.38-5.82); RED CELL DISTRIBUTION WIDTH 14.4 % (9.4-14.8)
[2018-06-01 05:18] LABS: ALBUMIN 2.4 g/dL (3.4-5.0); ANION GAP 6 mmol/L (5-15); CALCIUM 7.9 mg/dL (8.5-10.1); CHLORIDE 110 mmol/L (98-107)
[2018-06-01 05:21] LABS: ALANINE AMINOTRANSFERASE 16 U/L (12-78); ALKALINE PHOSPHATASE 82 U/L (45-117); BILIRUBIN,TOTAL 0.3 mg/dL (0.2-1.0); CHOL/HDL RATIO 2.6; CHOLESTEROL, TOTAL 124 mg/dL (140-239); CREATININE 0.83 mg/dL (0.7-1.3); HDL CHOL % 38 % (26-37); HDL CHOLESTEROL (DIRECT) 47 mg/dL (40-60); LDL CHOLESTEROL,CALCULATED 65 mg/dL (54-169); LDL/HDL RATIO 1.4 (0.5-3.0); TOTAL PROTEIN 5.6 g/dL (6.4-8.2); TRIGLYCERIDES 58 mg/dL (50-200); VLDL CHOLESTEROL 12 mg/dL (0-25)
[2018-06-01] MEDS: VANCOMYCIN 1,800 MG in SODIUM CHLORIDE 0.9% 250 ML IV SCH ×2 (06:28→18:38)
[2018-06-01] MEDS: INSULIN LISPRO 100 UNITS/ML, PEN SQ-INSULIN SCH ×4 (07:00→20:17)
[2018-06-01 07:08] VITALS: BP 106/70
[2018-06-01] MEDS: SODIUM CHLORIDE 0.9% 1,000 ML IV SCH (08:05)
[2018-06-01 14:01] VITALS: BP 108/66
[2018-06-01 19:47] VITALS: BP 111/68
[2018-06-02 02:21] VITALS: BP 112/67
[2018-06-02] MEDS: morphine SULFATE 10 MG/ML, 1ML IVPush PRN ×6 (05:22→21:55)
[2018-06-02] MEDS: PIPERACILLIN/TAZO/PMX 3.375GM 50 ML IV SCH ×4 (05:22→23:09)
[2018-06-02] MEDS: VANCOMYCIN 1,800 MG in SODIUM CHLORIDE 0.9% 250 ML IV SCH ×2 (06:46→18:48)
[2018-06-02] MEDS: INSULIN LISPRO 100 UNITS/ML, PEN SQ-INSULIN SCH ×4 (07:00→20:17)
[2018-06-02] MEDS: DOCUSATE 100 MG CAPSULE PO PRN ×2 (07:59→20:06)
[2018-06-02 08:49] VITALS: BP 114/69
[2018-06-02] MEDS ORDERED: ATOR20TA86 PO (10:42)
[2018-06-02] MEDS ORDERED: METO5AMP PO (10:44)
[2018-06-02] MEDS ORDERED: ALBUTEROL SULFATE 2.5 MG/3 ML ONE (12:11)
[2018-06-02] MEDS: POLYETHYLENE GLYCOL 17 GM PACKET PO PRN (12:39)
[2018-06-02 14:44] VITALS: BP 124/72
[2018-06-02 19:40] VITALS: BP 109/67
[2018-06-03 00:50] VITALS: BP 116/75
[2018-06-03] MEDS: morphine SULFATE 10 MG/ML, 1ML IVPush PRN ×7 (00:59→21:20)
[2018-06-03] MEDS: PIPERACILLIN/TAZO/PMX 3.375GM 50 ML IV SCH ×4 (05:23→23:28)
[2018-06-03] MEDS: VANCOMYCIN 1,800 MG in SODIUM CHLORIDE 0.9% 250 ML IV SCH ×2 (06:20→18:17)
[2018-06-03 06:36] VITALS: BP 107/71
[2018-06-03] MEDS: INSULIN LISPRO 100 UNITS/ML, PEN SQ-INSULIN SCH ×4 (07:00→21:20)
[2018-06-03] MEDS ORDERED: GADOBUTROL 10 MMOL/10 ML PFS ONE (13:39)
[2018-06-03 15:23] VITALS: BP 128/75
[2018-06-03 20:07] VITALS: BP 130/78
[2018-06-03] MEDS: POLYETHYLENE GLYCOL 17 GM PACKET PO PRN (21:24)
[2018-06-04] MEDS: morphine SULFATE 10 MG/ML, 1ML IVPush PRN ×8 (00:55→23:52)
[2018-06-04 01:29] VITALS: BP 124/73
[2018-06-04] MEDS: PIPERACILLIN/TAZO/PMX 3.375GM 50 ML IV SCH ×4 (05:00→23:17)
[2018-06-04 05:16] LABS: BASOPHILS # (AUTO) 0.03 x10^3/uL (0-0.1); BASOPHILS % (AUTO) 0 % (0-1); EOSINOPHILS # (AUTO) 0.65 x10^3/uL (0-0.4); EOSINOPHILS % (AUTO) 9 % (1-7); LYMPHOCYTES # (AUTO) 1.64 x10^3/uL (1-3.4); LYMPHOCYTES % (AUTO) 23 % (22-44); MD NO; MEAN CORPUSCULAR HEMOGLOBIN 30.6 pg (27.5-34.5); MEAN CORPUSCULAR HGB CONC 33.6 g/dL (33.2-36.2); MEAN CORPUSCULAR VOLUME 91.3 fL (81-97); MEAN PLATELET VOLUME 7.8 fL (7.4-10.4); MONOCYTES # (AUTO) 0.73 x10^3/uL (0.2-0.8); MONOCYTES % (AUTO) 10 % (2-9); NEUTROPHILS # (AUTO) 4.05 x10^3/uL (1.8-6.8); NEUTROPHILS % (AUTO) 57 % (42-75); PLATELET COUNT 190 x10^3/uL (130-400); RED BLOOD COUNT 3.88 x10^6/uL (4.38-5.82); RED CELL DISTRIBUTION WIDTH 13.7 % (9.4-14.8)
[2018-06-04 05:24] LABS: INTERNATIONAL NORMALIZED RATIO 1.01 (0.93-1.1); PROTHROMBIN TIME 10.7 Seconds (9.6-11.5)
[2018-06-04 05:27] LABS: ANION GAP 5 mmol/L (5-15); CALCIUM 8.5 mg/dL (8.5-10.1); CHLORIDE 106 mmol/L (98-107)
[2018-06-04] MEDS: VANCOMYCIN 1,800 MG in SODIUM CHLORIDE 0.9% 250 ML IV SCH ×2 (06:19→18:29)
[2018-06-04] MEDS: INSULIN LISPRO 100 UNITS/ML, PEN SQ-INSULIN SCH ×4 (07:00→20:47)
[2018-06-04 07:37] VITALS: BP 128/78
[2018-06-04] MEDS: DOCUSATE 100 MG CAPSULE PO PRN ×2 (11:09→20:46)
[2018-06-04 13:54] VITALS: BP 118/77
[2018-06-04] MEDS: ALBUTEROL SULFATE 2.5 MG/3 ML NPPB PRN (15:50)
[2018-06-04 20:00] VITALS: BP 107/63
[2018-06-04] MEDS: POLYETHYLENE GLYCOL 17 GM PACKET PO PRN (20:46)
[2018-06-05 02:00] VITALS: BP 140/83
[2018-06-05] MEDS: morphine SULFATE 10 MG/ML, 1ML IVPush PRN ×6 (03:13→23:34)
[2018-06-05] MEDS: PIPERACILLIN/TAZO/PMX 3.375GM 50 ML IV SCH ×4 (05:17→22:45)
[2018-06-05 05:59] LABS: BASOPHILS # (AUTO) 0.04 x10^3/uL (0-0.1); BASOPHILS % (AUTO) 1 % (0-1); EOSINOPHILS % (AUTO) 12 % (1-7); LYMPHOCYTES % (AUTO) 30 % (22-44); MD NO; MEAN CORPUSCULAR HEMOGLOBIN 30.1 pg (27.5-34.5); MEAN CORPUSCULAR HGB CONC 32.9 g/dL (33.2-36.2); MEAN CORPUSCULAR VOLUME 91.4 fL (81-97); MEAN PLATELET VOLUME 7.8 fL (7.4-10.4); MONOCYTES # (AUTO) 0.59 x10^3/uL (0.2-0.8); MONOCYTES % (AUTO) 10 % (2-9); NEUTROPHILS % (AUTO) 48 % (42-75); PLATELET COUNT 211 x10^3/uL (130-400); RED BLOOD COUNT 4.17 x10^6/uL (4.38-5.82); RED CELL DISTRIBUTION WIDTH 13.7 % (9.4-14.8)
[2018-06-05 06:07] LABS: ALBUMIN 2.6 g/dL (3.4-5.0); ANION GAP 5 mmol/L (5-15); CALCIUM 8.6 mg/dL (8.5-10.1); CHLORIDE 107 mmol/L (98-107)
[2018-06-05 06:13] LABS: ALANINE AMINOTRANSFERASE 18 U/L (12-78); ALKALINE PHOSPHATASE 100 U/L (45-117); BILIRUBIN,TOTAL 0.4 mg/dL (0.2-1.0); CREATININE 0.95 mg/dL (0.7-1.3); TOTAL PROTEIN 6.9 g/dL (6.4-8.2); VANCOMYCIN,TROUGH 28.7 mcg/mL (5.0-10.0)
[2018-06-05] MEDS: INSULIN LISPRO 100 UNITS/ML, PEN SQ-INSULIN SCH ×4 (07:00→20:34)
[2018-06-05 07:29] VITALS: BP 112/72
[2018-06-05] MEDS ORDERED: MIDAZOLAM 1 MG/ML, 2ML ONE (10:30)
[2018-06-05] MEDS ORDERED: FENTANYL PF 250 MCG/5ML ONE (10:30)
[2018-06-05] MEDS ORDERED: CEFAZOLIN 1,000 MG ONE ×2 (10:31)
[2018-06-05] MEDS ORDERED: SODIUM CHLORIDE 0.9% PF 10ML ONE (10:31)
[2018-06-05] MEDS ORDERED: PROPOFOL 10 MG/ML, 20ML ONE (10:31)
[2018-06-05] MEDS: ALBUTEROL SULFATE 2.5 MG/3 ML NPPB PRN (10:48)
[2018-06-05] MEDS ORDERED: OXYcodone 5 MG/5 ML ORAL.SOL UDC PO PRN (11:30)
[2018-06-05] MEDS ORDERED: ONDANSETRON ODT 8 MG PO PRN (11:30)
[2018-06-05] MEDS ORDERED: PROMETHAZINE 12.5 MG SUPP PR PRN (11:30)
[2018-06-05] MEDS ORDERED: ACETAMINOPHEN 325 MG TABLET PO PRN (11:30)
[2018-06-05] MEDS ORDERED: hydrALAzine 20 MG/ML, 1ML IV PRN (11:30)
[2018-06-05] MEDS ORDERED: PROMETHAZINE 25 MG/ML, 1ML IV PRN (11:30)
[2018-06-05] MEDS ORDERED: PROMETHAZINE 25 MG/ML, 1ML IM PRN ×2 (11:30)
[2018-06-05] MEDS ORDERED: ONDANSETRON 2MG/ML, 2ML IV PRN (11:30)
[2018-06-05] MEDS ORDERED: FENTANYL PF 100 MCG/2ML IV PRN (11:30)
[2018-06-05] MEDS ORDERED: MORPHINE SULFATE 4 MG/ML, 1ML IVPush PRN (11:30)
[2018-06-05] MEDS ORDERED: LABETALOL 5MG/ML, 20ML IV PRN (11:30)
[2018-06-05] MEDS ORDERED: HYDROmorphone 2 MG/ML, 1ML IVPush PRN (11:30)
[2018-06-05] MEDS ORDERED: MEPERIDINE/PF 25MG/0.5ML IVPush PRN (11:30)
[2018-06-05] MEDS ORDERED: PROMETHAZINE 25 MG SUPP PR PRN (11:30)
[2018-06-05 14:50] VITALS: BP 106/71
[2018-06-05 20:00] VITALS: BP 103/72
[2018-06-05] MEDS: DOCUSATE 100 MG CAPSULE PO PRN (20:33)
[2018-06-05] MEDS: VANCOMYCIN 2,000 MG in SODIUM CHLORIDE 0.9% 500 ML IV SCH (20:33)
[2018-06-06 02:00] VITALS: BP 115/73
[2018-06-06] MEDS: morphine SULFATE 10 MG/ML, 1ML IVPush PRN ×6 (03:15→21:58)
[2018-06-06] MEDS: PIPERACILLIN/TAZO/PMX 3.375GM 50 ML IV SCH ×4 (05:20→23:03)
[2018-06-06] MEDS: INSULIN LISPRO 100 UNITS/ML, PEN SQ-INSULIN SCH ×4 (07:00→20:38)
[2018-06-06 07:39] VITALS: BP 121/74
[2018-06-06 12:38] VITALS: BP 114/78
[2018-06-06] MEDS: VANCOMYCIN 2,000 MG in SODIUM CHLORIDE 0.9% 500 ML IV SCH (19:57)
[2018-06-06 20:00] VITALS: BP 121/69
[2018-06-06] MEDS: DOCUSATE 100 MG CAPSULE PO PRN (23:02)
[2018-06-06] MEDS: POLYETHYLENE GLYCOL 17 GM PACKET PO PRN (23:02)
[2018-06-07] MEDS: morphine SULFATE 10 MG/ML, 1ML IVPush PRN ×5 (01:04→19:48)
[2018-06-07 02:00] VITALS: BP 117/74
[2018-06-07] MEDS: PIPERACILLIN/TAZO/PMX 3.375GM 50 ML IV SCH ×4 (05:27→23:09)
[2018-06-07] MEDS: INSULIN LISPRO 100 UNITS/ML, PEN SQ-INSULIN SCH ×4 (07:00→20:12)
[2018-06-07 07:23] VITALS: BP 118/67
[2018-06-07] MEDS: ENOXAPARIN 40 MG/0.4 ML SQ SCH (12:26)
[2018-06-07 13:29] VITALS: BP 133/73
[2018-06-07] MEDS: KETOROLAC 30 MG/1 ML IVPush SCH ×2 (17:23→23:09)
[2018-06-07 19:37] VITALS: BP 120/66
[2018-06-08 00:19] VITALS: BP 97/62
[2018-06-08] MEDS: morphine SULFATE 10 MG/ML, 1ML IVPush PRN ×5 (00:33→21:27)
[2018-06-08] MEDS: DOCUSATE 100 MG CAPSULE PO PRN ×2 (00:38→20:39)
[2018-06-08] MEDS: POLYETHYLENE GLYCOL 17 GM PACKET PO PRN ×2 (00:38→20:39)
[2018-06-08] MEDS: KETOROLAC 30 MG/1 ML IVPush SCH ×4 (04:59→23:21)
[2018-06-08] MEDS: PIPERACILLIN/TAZO/PMX 3.375GM 50 ML IV SCH ×4 (04:59→23:21)
[2018-06-08 06:34] VITALS: BP 100/67
[2018-06-08] MEDS: INSULIN LISPRO 100 UNITS/ML, PEN SQ-INSULIN SCH ×4 (07:00→20:39)
[2018-06-08] MEDS: ENOXAPARIN 40 MG/0.4 ML SQ SCH (11:17)
[2018-06-08 13:07] VITALS: BP 100/63
[2018-06-08 18:24] VITALS: BP 115/75
[2018-06-09 00:31] VITALS: BP 122/69
[2018-06-09] MEDS: morphine SULFATE 10 MG/ML, 1ML IVPush PRN ×5 (00:37→21:00)
[2018-06-09] MEDS: PIPERACILLIN/TAZO/PMX 3.375GM 50 ML IV SCH ×4 (05:05→22:36)
[2018-06-09] MEDS: KETOROLAC 30 MG/1 ML IVPush SCH ×4 (05:47→22:37)
[2018-06-09 07:03] VITALS: BP 137/81
[2018-06-09] MEDS: INSULIN LISPRO 100 UNITS/ML, PEN SQ-INSULIN SCH ×4 (07:55→22:37)
[2018-06-09] MEDS: ENOXAPARIN 40 MG/0.4 ML SQ SCH (10:52)
[2018-06-09 15:03] VITALS: BP 129/80
[2018-06-09 19:38] VITALS: BP 128/77
[2018-06-10] MEDS: morphine SULFATE 10 MG/ML, 1ML IVPush PRN ×5 (00:01→20:05)
[2018-06-10 00:03] VITALS: BP 132/82
[2018-06-10 05:22] LABS: HCT (SEDRATE) 34.4 % (39.2-51.8)
[2018-06-10 05:26] LABS: ALBUMIN 2.5 g/dL (3.4-5.0); ANION GAP 4 mmol/L (5-15); CALCIUM 8.7 mg/dL (8.5-10.1); CHLORIDE 108 mmol/L (98-107)
[2018-06-10 05:27] LABS: BASOPHILS # (AUTO) 0.04 x10^3/uL (0-0.1); BASOPHILS % (AUTO) 1 % (0-1); EOSINOPHILS # (AUTO) 0.67 x10^3/uL (0-0.4); EOSINOPHILS % (AUTO) 11 % (1-7); LYMPHOCYTES # (AUTO) 1.68 x10^3/uL (1-3.4); LYMPHOCYTES % (AUTO) 28 % (22-44); MD NO; MEAN CORPUSCULAR HEMOGLOBIN 30.7 pg (27.5-34.5); MEAN CORPUSCULAR VOLUME 90.3 fL (81-97); MEAN PLATELET VOLUME 7.7 fL (7.4-10.4); MONOCYTES # (AUTO) 0.56 x10^3/uL (0.2-0.8); MONOCYTES % (AUTO) 9 % (2-9); NEUTROPHILS # (AUTO) 3.01 x10^3/uL (1.8-6.8); NEUTROPHILS % (AUTO) 51 % (42-75); PLATELET COUNT 255 x10^3/uL (130-400); RED BLOOD COUNT 3.78 x10^6/uL (4.38-5.82); RED CELL DISTRIBUTION WIDTH 13.6 % (9.4-14.8)
[2018-06-10 05:37] LABS: ALANINE AMINOTRANSFERASE 16 U/L (12-78); ALKALINE PHOSPHATASE 95 U/L (45-117); BILIRUBIN,TOTAL 0.3 mg/dL (0.2-1.0); TOTAL PROTEIN 6.2 g/dL (6.4-8.2)
[2018-06-10] MEDS: PIPERACILLIN/TAZO/PMX 3.375GM 50 ML IV SCH ×2 (06:05→11:32)
[2018-06-10] MEDS: KETOROLAC 30 MG/1 ML IVPush SCH ×3 (06:05→17:01)
[2018-06-10] MEDS: INSULIN LISPRO 100 UNITS/ML, PEN SQ-INSULIN SCH ×4 (07:00→20:17)
[2018-06-10 07:38] VITALS: BP 125/71
[2018-06-10] MEDS: ENOXAPARIN 40 MG/0.4 ML SQ SCH (11:32)
[2018-06-10 14:17] VITALS: BP 136/84
[2018-06-10] MEDS ORDERED: PIPERACILLIN/TAZO 3.375 GM in DEXTROSE 5% 50 ML IV SCH (17:00)
[2018-06-10] MEDS: PIPERACILLIN/TAZO 3.375 GM in DEXTROSE 5% 50 ML IV SCH (17:27)
[2018-06-10] MEDS: DOCUSATE 100 MG CAPSULE PO PRN (20:05)
[2018-06-10 20:53] VITALS: BP 148/85
[2018-06-11] MEDS: morphine SULFATE 10 MG/ML, 1ML IVPush PRN ×5 (00:01→23:03)
[2018-06-11] MEDS: PIPERACILLIN/TAZO 3.375 GM in DEXTROSE 5% 50 ML IV SCH ×5 (00:01→23:03)
[2018-06-11] MEDS: KETOROLAC 30 MG/1 ML IVPush SCH ×5 (00:01→23:03)
[2018-06-11 03:36] VITALS: BP 158/78
[2018-06-11] MEDS: INSULIN LISPRO 100 UNITS/ML, PEN SQ-INSULIN SCH ×4 (07:00→21:35)
[2018-06-11 07:37] VITALS: BP 145/85
[2018-06-11] MEDS: ENOXAPARIN 40 MG/0.4 ML SQ SCH (11:36)
[2018-06-11 13:20] VITALS: BP 133/77
[2018-06-11 20:34] VITALS: BP 127/72
[2018-06-11] MEDS: DOCUSATE 100 MG CAPSULE PO PRN (23:03)
[2018-06-12 04:14] VITALS: BP 119/68
[2018-06-12] MEDS: PIPERACILLIN/TAZO 3.375 GM in DEXTROSE 5% 50 ML IV SCH ×4 (04:50→23:38)
[2018-06-12] MEDS: KETOROLAC 30 MG/1 ML IVPush SCH ×3 (04:50→17:07)
[2018-06-12] MEDS: INSULIN LISPRO 100 UNITS/ML, PEN SQ-INSULIN SCH ×4 (07:00→21:00)
[2018-06-12 07:43] VITALS: BP 146/84
[2018-06-12] MEDS: ENOXAPARIN 40 MG/0.4 ML SQ SCH (11:17)
[2018-06-12] MEDS: VANCOMYCIN 1,500 MG in SODIUM CHLORIDE 0.9% 250 ML IV SCH (12:55)
[2018-06-12 14:00] VITALS: BP 157/84
[2018-06-12 19:58] VITALS: BP 150/87
[2018-06-13] MEDS: VANCOMYCIN 1,500 MG in SODIUM CHLORIDE 0.9% 250 ML IV SCH ×3 (00:47→23:47)
[2018-06-13 01:34] VITALS: BP_SYST 109; BP_SYST 142; BP_DIAS 68
[2018-06-13] MEDS: PIPERACILLIN/TAZO 3.375 GM in DEXTROSE 5% 50 ML IV SCH ×4 (05:00→23:12)
[2018-06-13 06:39] VITALS: BP 154/84
[2018-06-13] MEDS: INSULIN LISPRO 100 UNITS/ML, PEN SQ-INSULIN SCH ×4 (07:00→20:49)
[2018-06-13] MEDS: ENOXAPARIN 40 MG/0.4 ML SQ SCH (11:34)
[2018-06-13 13:23] VITALS: BP 128/76
[2018-06-13 19:54] VITALS: BP 116/71
[2018-06-14 02:05] VITALS: BP 124/73
[2018-06-14] MEDS: PIPERACILLIN/TAZO 3.375 GM in DEXTROSE 5% 50 ML IV SCH ×4 (04:43→23:02)
[2018-06-14] MEDS: INSULIN LISPRO 100 UNITS/ML, PEN SQ-INSULIN SCH ×4 (07:00→20:21)
[2018-06-14 07:25] VITALS: BP 136/79
[2018-06-14] MEDS: ENOXAPARIN 40 MG/0.4 ML SQ SCH (11:02)
[2018-06-14] MEDS ORDERED: KETOCONAZOLE CRM 2%, 15GM TP SCH (12:00)
[2018-06-14] MEDS: VANCOMYCIN 1,500 MG in SODIUM CHLORIDE 0.9% 250 ML IV SCH (13:10)
[2018-06-14 13:41] VITALS: BP 114/64
[2018-06-14] MEDS: MICONAZOLE CRM 2%, 15GM TP SCH (18:00)
[2018-06-14 19:29] VITALS: BP 122/77
[2018-06-15] MEDS: VANCOMYCIN 1,500 MG in SODIUM CHLORIDE 0.9% 250 ML IV SCH ×2 (01:04→13:38)
[2018-06-15 01:55] VITALS: BP 125/78
[2018-06-15] MEDS: PIPERACILLIN/TAZO 3.375 GM in DEXTROSE 5% 50 ML IV SCH ×4 (04:59→22:52)
[2018-06-15] MEDS: INSULIN LISPRO 100 UNITS/ML, PEN SQ-INSULIN SCH ×4 (07:00→21:00)
[2018-06-15 08:09] VITALS: BP 115/71
[2018-06-15] MEDS: MICONAZOLE CRM 2%, 15GM TP SCH ×2 (09:00→17:12)
[2018-06-15] MEDS: ENOXAPARIN 40 MG/0.4 ML SQ SCH (09:21)
[2018-06-15 15:42] VITALS: BP 117/70
[2018-06-15 16:31] VITALS: BP 104/71
[2018-06-15 21:05] VITALS: BP 110/70
[2018-06-16] MEDS: VANCOMYCIN 1,500 MG in SODIUM CHLORIDE 0.9% 250 ML IV SCH ×2 (01:05→13:14)
[2018-06-16 01:12] VITALS: BP 130/76
[2018-06-16] MEDS: PIPERACILLIN/TAZO 3.375 GM in DEXTROSE 5% 50 ML IV SCH ×3 (05:08→17:30)
[2018-06-16 06:54] VITALS: BP 132/79
[2018-06-16] MEDS: INSULIN LISPRO 100 UNITS/ML, PEN SQ-INSULIN SCH ×4 (07:00→20:59)
[2018-06-16] MEDS: HEPARIN 5,000 UNITS/ML, 1ML SQ SCH ×3 (07:30→23:11)
[2018-06-16] MEDS: MICONAZOLE CRM 2%, 15GM TP SCH ×2 (11:44→16:51)
[2018-06-16 12:51] VITALS: BP 118/77
[2018-06-16 21:40] VITALS: BP 118/72
[2018-06-16] MEDS ORDERED: PIPERACILLIN/TAZO 3.375 GM in SODIUM CHLORIDE 0.9% 50 ML IV SCH (23:00)
[2018-06-17] MEDS: VANCOMYCIN 1,500 MG in SODIUM CHLORIDE 0.9% 250 ML IV SCH ×3 (01:00→13:42)
[2018-06-17 01:13] VITALS: BP 135/81
[2018-06-17] MEDS: PIPERACILLIN/TAZO/PMX 3.375GM 50 ML IV SCH ×4 (05:03→23:18)
[2018-06-17] MEDS: MICONAZOLE CRM 2%, 15GM TP SCH ×2 (05:03→16:33)
[2018-06-17 05:22] LABS: BASOPHILS # (AUTO) 0.09 x10^3/uL (0-0.1); BASOPHILS % (AUTO) 2 % (0-1); EOSINOPHILS # (AUTO) 0.51 x10^3/uL (0-0.4); EOSINOPHILS % (AUTO) 9 % (1-7); HCT (SEDRATE) 32.4 % (39.2-51.8); LYMPHOCYTES # (AUTO) 1.65 x10^3/uL (1-3.4); LYMPHOCYTES % (AUTO) 30 % (22-44); MD NO; MEAN CORPUSCULAR HEMOGLOBIN 30.3 pg (27.5-34.5); MEAN CORPUSCULAR HGB CONC 33.5 g/dL (33.2-36.2); MEAN CORPUSCULAR VOLUME 90.5 fL (81-97); MEAN PLATELET VOLUME 7.9 fL (7.4-10.4); MONOCYTES # (AUTO) 0.39 x10^3/uL (0.2-0.8); MONOCYTES % (AUTO) 7 % (2-9); NEUTROPHILS # (AUTO) 2.87 x10^3/uL (1.8-6.8); NEUTROPHILS % (AUTO) 52 % (42-75); PLATELET COUNT 201 x10^3/uL (130-400); RED BLOOD COUNT 2.93 x10^6/uL (4.38-5.82); RED CELL DISTRIBUTION WIDTH 13.9 % (9.4-14.8)
[2018-06-17 05:25] LABS: ALBUMIN 2.4 g/dL (3.4-5.0); ANION GAP 4 mmol/L (5-15); C-REACTIVE PROTEIN, QUANT 0.59 mg/dL (0.02-0.49); CHLORIDE 117 mmol/L (98-107)
[2018-06-17 05:28] LABS: ALANINE AMINOTRANSFERASE 21 U/L (12-78); ALKALINE PHOSPHATASE 75 U/L (45-117); BILIRUBIN,TOTAL 0.6 mg/dL (0.2-1.0); CREATININE 0.72 mg/dL (0.7-1.3); TOTAL PROTEIN 5.5 g/dL (6.4-8.2)
[2018-06-17] MEDS: INSULIN LISPRO 100 UNITS/ML, PEN SQ-INSULIN SCH ×4 (07:00→19:56)
[2018-06-17 07:54] VITALS: BP 123/76
[2018-06-17] MEDS ORDERED: POTASSIUM CHLORIDE 20 MEQ TAB.ER.PRT PO ONE (08:00)
[2018-06-17] MEDS: HEPARIN 5,000 UNITS/ML, 1ML SQ SCH ×3 (08:22→23:17)
[2018-06-17] MEDS ORDERED: PHARMACOKINETIC MONITORING MC PRN (15:00)
[2018-06-17] MEDS ORDERED: VANCOMYCIN 1,300 MG in SODIUM CHLORIDE 0.9% 250 ML IV SCH (15:00)
[2018-06-17] MEDS ORDERED: VANCOMYCIN PER PHARMACY MC PRN (15:00)
[2018-06-17 15:52] VITALS: BP 122/60
[2018-06-17 20:56] VITALS: BP 108/62
[2018-06-18] MEDS: VANCOMYCIN 1,300 MG in SODIUM CHLORIDE 0.9% 250 ML IV SCH ×2 (00:31→13:09)
[2018-06-18 03:21] VITALS: BP 106/68
[2018-06-18] MEDS ORDERED: CATHFLO-ALTEPLASE 2 MG/2 ML CATHFLUSH ONE (05:30)
[2018-06-18 06:30] LABS: % IRON SATURATION 38 % (20-55); ANION GAP 4 mmol/L (5-15); CALCIUM 8.7 mg/dL (8.5-10.1); CHLORIDE 107 mmol/L (98-107); CREATININE 1.02 mg/dL (0.7-1.3); IRON LEVEL 98 mcg/dL (65-175); TOTAL IRON BINDING CAPACITY 255 mcg/dL (250-450)
[2018-06-18 06:34] LABS: BASOPHILS # (AUTO) 0.09 x10^3/uL (0-0.1); BASOPHILS % (AUTO) 1 % (0-1); EOSINOPHILS # (AUTO) 0.66 x10^3/uL (0-0.4); EOSINOPHILS % (AUTO) 8 % (1-7); LYMPHOCYTES # (AUTO) 2.38 x10^3/uL (1-3.4); LYMPHOCYTES % (AUTO) 29 % (22-44); MD NO; MEAN CORPUSCULAR HGB CONC 33.2 g/dL (33.2-36.2); MEAN CORPUSCULAR VOLUME 90.2 fL (81-97); MEAN PLATELET VOLUME 8.1 fL (7.4-10.4); MONOCYTES # (AUTO) 0.65 x10^3/uL (0.2-0.8); MONOCYTES % (AUTO) 8 % (2-9); NEUTROPHILS # (AUTO) 4.57 x10^3/uL (1.8-6.8); NEUTROPHILS % (AUTO) 55 % (42-75); PLATELET COUNT 294 x10^3/uL (130-400); RED BLOOD COUNT 4.23 x10^6/uL (4.38-5.82); RED CELL DISTRIBUTION WIDTH 13.9 % (9.4-14.8)
[2018-06-18] MEDS: MICONAZOLE CRM 2%, 15GM TP SCH ×2 (06:37→17:01)
[2018-06-18] MEDS: PIPERACILLIN/TAZO/PMX 3.375GM 50 ML IV SCH ×3 (06:37→18:29)
[2018-06-18] MEDS: INSULIN LISPRO 100 UNITS/ML, PEN SQ-INSULIN SCH ×4 (07:00→20:20)
[2018-06-18 07:36] VITALS: BP 122/79
[2018-06-18] MEDS: HEPARIN 5,000 UNITS/ML, 1ML SQ SCH ×2 (09:03→16:58)
[2018-06-18 14:00] VITALS: BP 105/69
[2018-06-18 18:32] VITALS: BP 131/78
[2018-06-19] MEDS: PIPERACILLIN/TAZO/PMX 3.375GM 50 ML IV SCH ×4 (00:35→18:30)
[2018-06-19 01:13] VITALS: BP 104/67
[2018-06-19] MEDS: VANCOMYCIN 1,300 MG in SODIUM CHLORIDE 0.9% 250 ML IV SCH ×2 (01:15→13:00)
[2018-06-19] MEDS: HEPARIN 5,000 UNITS/ML, 1ML SQ SCH ×3 (01:15→17:27)
[2018-06-19] MEDS: MICONAZOLE CRM 2%, 15GM TP SCH ×2 (05:59→17:27)
[2018-06-19] MEDS: INSULIN LISPRO 100 UNITS/ML, PEN SQ-INSULIN SCH ×4 (07:56→21:00)
[2018-06-19 09:09] VITALS: BP 112/72
[2018-06-19] MEDS: DAPTOMYCIN 600 MG in SODIUM CHLORIDE 0.9% 100 ML IVPB SCH (16:10)
[2018-06-19 16:22] VITALS: BP 117/70
[2018-06-19 18:55] VITALS: BP 132/78
[2018-06-20] MEDS: PIPERACILLIN/TAZO/PMX 3.375GM 50 ML IV SCH ×4 (00:41→18:27)
[2018-06-20] MEDS: HEPARIN 5,000 UNITS/ML, 1ML SQ SCH ×3 (01:00→16:45)
[2018-06-20 01:08] VITALS: BP 119/71
[2018-06-20] MEDS: MICONAZOLE CRM 2%, 15GM TP SCH ×2 (06:26→16:45)
[2018-06-20] MEDS: INSULIN LISPRO 100 UNITS/ML, PEN SQ-INSULIN SCH ×4 (07:41→20:28)
[2018-06-20 08:00] VITALS: BP 123/80
[2018-06-20] MEDS: DAPTOMYCIN 600 MG in SODIUM CHLORIDE 0.9% 100 ML IVPB SCH (15:26)
[2018-06-20 15:59] VITALS: BP 144/81
[2018-06-20 20:51] VITALS: BP 108/71
[2018-06-21] MEDS: HEPARIN 5,000 UNITS/ML, 1ML SQ SCH ×3 (00:37→18:17)
[2018-06-21] MEDS: PIPERACILLIN/TAZO/PMX 3.375GM 50 ML IV SCH ×4 (00:37→18:18)
[2018-06-21 00:49] VITALS: BP 104/68
[2018-06-21] MEDS: MICONAZOLE CRM 2%, 15GM TP SCH ×2 (06:27→18:18)
[2018-06-21] MEDS: INSULIN LISPRO 100 UNITS/ML, PEN SQ-INSULIN SCH ×4 (08:12→20:38)
[2018-06-21 09:01] VITALS: BP 120/77
[2018-06-21] MEDS ORDERED: GADOBUTROL 10 MMOL/10 ML PFS ONE (10:00)
[2018-06-21] MEDS: DAPTOMYCIN 600 MG in SODIUM CHLORIDE 0.9% 100 ML IVPB SCH (15:06)
[2018-06-21 15:58] VITALS: BP 103/65
[2018-06-21 20:35] VITALS: BP 125/77
[2018-06-22] MEDS: PIPERACILLIN/TAZO/PMX 3.375GM 50 ML IV SCH ×2 (00:32→06:09)
[2018-06-22] MEDS: HEPARIN 5,000 UNITS/ML, 1ML SQ SCH ×3 (01:00→17:00)
[2018-06-22 01:47] VITALS: BP 113/77
[2018-06-22] MEDS: MICONAZOLE CRM 2%, 15GM TP SCH ×2 (06:09→18:00)
[2018-06-22] MEDS: INSULIN LISPRO 100 UNITS/ML, PEN SQ-INSULIN SCH ×4 (07:00→19:51)
[2018-06-22 09:45] VITALS: BP 102/68
[2018-06-22] MEDS: CEFTRIAXONE PMX 2GM/50ML 50 ML IV SCH (10:20)
[2018-06-22 13:55] VITALS: BP 126/79
[2018-06-22] MEDS: DAPTOMYCIN 600 MG in SODIUM CHLORIDE 0.9% 100 ML IVPB SCH (15:10)
[2018-06-22 20:15] VITALS: BP 113/72
[2018-06-23] MEDS: HEPARIN 5,000 UNITS/ML, 1ML SQ SCH (01:00)
[2018-06-23 02:25] VITALS: BP 125/79
[2018-06-23] MEDS: MICONAZOLE CRM 2%, 15GM TP SCH ×2 (05:59→17:01)
[2018-06-23] MEDS: INSULIN LISPRO 100 UNITS/ML, PEN SQ-INSULIN SCH ×4 (07:00→20:20)
[2018-06-23 07:48] VITALS: BP 124/81
[2018-06-23] MEDS: ENOXAPARIN 40 MG/0.4 ML SQ SCH (08:05)
[2018-06-23] MEDS: CEFTRIAXONE PMX 2GM/50ML 50 ML IV SCH (09:27)
[2018-06-23 12:53] VITALS: BP 109/72
[2018-06-23] MEDS: DAPTOMYCIN 600 MG in SODIUM CHLORIDE 0.9% 100 ML IVPB SCH (14:30)
[2018-06-23 20:35] VITALS: BP 105/69
[2018-06-24 02:41] VITALS: BP 147/82
[2018-06-24] MEDS: MICONAZOLE CRM 2%, 15GM TP SCH ×2 (05:34→17:44)
[2018-06-24 06:05] LABS: BASOPHILS # (AUTO) 0.07 x10^3/uL (0-0.1); BASOPHILS % (AUTO) 1 % (0-1); EOSINOPHILS # (AUTO) 0.52 x10^3/uL (0-0.4); EOSINOPHILS % (AUTO) 7 % (1-7); LYMPHOCYTES # (AUTO) 2.23 x10^3/uL (1-3.4); LYMPHOCYTES % (AUTO) 29 % (22-44); MD NO; MEAN CORPUSCULAR HEMOGLOBIN 29.7 pg (27.5-34.5); MEAN CORPUSCULAR HGB CONC 33.1 g/dL (33.2-36.2); MEAN CORPUSCULAR VOLUME 89.9 fL (81-97); MEAN PLATELET VOLUME 8.3 fL (7.4-10.4); MONOCYTES # (AUTO) 0.63 x10^3/uL (0.2-0.8); MONOCYTES % (AUTO) 8 % (2-9); NEUTROPHILS # (AUTO) 4.14 x10^3/uL (1.8-6.8); NEUTROPHILS % (AUTO) 55 % (42-75); PLATELET COUNT 292 x10^3/uL (130-400); RED BLOOD COUNT 4.57 x10^6/uL (4.38-5.82); RED CELL DISTRIBUTION WIDTH 14.1 % (9.4-14.8)
[2018-06-24 06:16] LABS: ALBUMIN 3.2 g/dL (3.4-5.0); ANION GAP 5 mmol/L (5-15); CALCIUM 8.9 mg/dL (8.5-10.1); CHLORIDE 109 mmol/L (98-107)
[2018-06-24 06:25] LABS: ALANINE AMINOTRANSFERASE 21 U/L (12-78); ALKALINE PHOSPHATASE 106 U/L (45-117); BILIRUBIN,TOTAL 0.5 mg/dL (0.2-1.0); CREATINE KINASE, TOTAL 21 U/L (39-308); CREATININE 0.82 mg/dL (0.7-1.3); TOTAL PROTEIN 7.3 g/dL (6.4-8.2)
[2018-06-24 06:51] LABS: HCT (SEDRATE) 38.2 % (39.2-51.8)
[2018-06-24] MEDS: INSULIN LISPRO 100 UNITS/ML, PEN SQ-INSULIN SCH ×4 (07:00→19:39)
[2018-06-24] MEDS: ENOXAPARIN 40 MG/0.4 ML SQ SCH (07:30)
[2018-06-24 08:22] VITALS: BP 110/67
[2018-06-24] MEDS: CEFTRIAXONE PMX 2GM/50ML 50 ML IV SCH (09:00)
[2018-06-24] MEDS ORDERED: ASPIRIN 325 MG TABLET PO ONE (10:30)
[2018-06-24 11:13] LABS: TROPONIN I < 0.015 ng/mL (0.000-0.045)
[2018-06-24 13:13] VITALS: BP 111/74
[2018-06-24] MEDS: DAPTOMYCIN 600 MG in SODIUM CHLORIDE 0.9% 100 ML IVPB SCH (14:32)
[2018-06-24 15:05] LABS: TROPONIN I < 0.015 ng/mL (0.000-0.045)
[2018-06-24 20:38] VITALS: BP 108/69
[2018-06-24 22:04] LABS: TROPONIN I < 0.015 ng/mL (0.000-0.045)
[2018-06-25 02:59] VITALS: BP 113/70
[2018-06-25] MEDS: MICONAZOLE CRM 2%, 15GM TP SCH ×5 (06:00→17:19)
[2018-06-25 07:35] VITALS: BP 126/79
[2018-06-25] MEDS: INSULIN LISPRO 100 UNITS/ML, PEN SQ-INSULIN SCH ×4 (07:55→19:41)
[2018-06-25] MEDS: ENOXAPARIN 40 MG/0.4 ML SQ SCH (08:00)
[2018-06-25] MEDS: CEFTRIAXONE PMX 2GM/50ML 50 ML IV SCH (08:44)
[2018-06-25 14:33] VITALS: BP 117/75
[2018-06-25] MEDS: DAPTOMYCIN 600 MG in SODIUM CHLORIDE 0.9% 100 ML IVPB SCH (15:15)
[2018-06-25 20:08] VITALS: BP 114/72
[2018-06-26 02:56] VITALS: BP 110/70
[2018-06-26] MEDS: MICONAZOLE CRM 2%, 15GM TP SCH ×2 (05:08→18:04)
[2018-06-26 08:00] VITALS: BP 129/84
[2018-06-26] MEDS: INSULIN LISPRO 100 UNITS/ML, PEN SQ-INSULIN SCH ×4 (08:05→21:00)
[2018-06-26] MEDS: ENOXAPARIN 40 MG/0.4 ML SQ SCH (08:12)
[2018-06-26] MEDS: CEFTRIAXONE PMX 2GM/50ML 50 ML IV SCH (08:52)
[2018-06-26 14:00] VITALS: BP 110/71
[2018-06-26] MEDS: DAPTOMYCIN 600 MG in SODIUM CHLORIDE 0.9% 100 ML IVPB SCH (15:47)
[2018-06-26 19:26] VITALS: BP 121/79
[2018-06-27 03:54] VITALS: BP 136/78
[2018-06-27] MEDS: MICONAZOLE CRM 2%, 15GM TP SCH ×2 (05:02→18:01)
[2018-06-27] MEDS: INSULIN LISPRO 100 UNITS/ML, PEN SQ-INSULIN SCH ×4 (07:10→20:12)
[2018-06-27] MEDS: ENOXAPARIN 40 MG/0.4 ML SQ SCH (07:11)
[2018-06-27 08:00] VITALS: BP 123/77
[2018-06-27] MEDS: CEFTRIAXONE PMX 2GM/50ML 50 ML IV SCH (08:33)
[2018-06-27 13:41] VITALS: BP 110/72
[2018-06-27] MEDS: DAPTOMYCIN 600 MG in SODIUM CHLORIDE 0.9% 100 ML IVPB SCH (14:57)
[2018-06-27 19:57] VITALS: BP 113/76
[2018-06-28 02:48] VITALS: BP 107/73
[2018-06-28] MEDS: MICONAZOLE CRM 2%, 15GM TP SCH ×2 (05:05→17:05)
[2018-06-28] MEDS: INSULIN LISPRO 100 UNITS/ML, PEN SQ-INSULIN SCH ×4 (07:00→20:09)
[2018-06-28 08:00] VITALS: BP 109/71
[2018-06-28] MEDS: CEFTRIAXONE PMX 2GM/50ML 50 ML IV SCH (09:35)
[2018-06-28] MEDS: ENOXAPARIN 40 MG/0.4 ML SQ SCH (09:35)
[2018-06-28 14:00] VITALS: BP 123/78
[2018-06-28] MEDS: DAPTOMYCIN 600 MG in SODIUM CHLORIDE 0.9% 100 ML IVPB SCH (15:03)
[2018-06-28 20:10] VITALS: BP 115/75
[2018-06-29 01:23] VITALS: BP 112/73
[2018-06-29] MEDS: MICONAZOLE CRM 2%, 15GM TP SCH ×2 (04:22→16:37)
[2018-06-29 04:42] LABS: ANION GAP 5 mmol/L (5-15); CALCIUM 8.5 mg/dL (8.5-10.1); CHLORIDE 108 mmol/L (98-107)
[2018-06-29 04:46] LABS: ALANINE AMINOTRANSFERASE 21 U/L (12-78); ALKALINE PHOSPHATASE 105 U/L (45-117); BILIRUBIN,TOTAL 0.3 mg/dL (0.2-1.0); TOTAL PROTEIN 6.7 g/dL (6.4-8.2)
[2018-06-29 05:33] LABS: BASOPHILS # (AUTO) 0.11 x10^3/uL (0-0.1); BASOPHILS % (AUTO) 1 % (0-1); EOSINOPHILS # (AUTO) 0.98 x10^3/uL (0-0.4); EOSINOPHILS % (AUTO) 10 % (1-7); LYMPHOCYTES % (AUTO) 30 % (22-44); MD SCAN; MEAN CORPUSCULAR HEMOGLOBIN 30.1 pg (27.5-34.5); MEAN CORPUSCULAR HGB CONC 33.6 g/dL (33.2-36.2); MEAN CORPUSCULAR VOLUME 89.7 fL (81-97); MONOCYTES % (AUTO) 9 % (2-9); NEUTROPHILS # (AUTO) 4.88 x10^3/uL (1.8-6.8); NEUTROPHILS % (AUTO) 50 % (42-75); PLATELET COUNT 196 x10^3/uL (130-400); RED BLOOD COUNT 4.45 x10^6/uL (4.38-5.82); RED CELL DISTRIBUTION WIDTH 13.7 % (9.4-14.8)
[2018-06-29] MEDS: INSULIN LISPRO 100 UNITS/ML, PEN SQ-INSULIN SCH ×4 (07:00→20:06)
[2018-06-29 08:30] VITALS: BP 131/78
[2018-06-29] MEDS: ENOXAPARIN 40 MG/0.4 ML SQ SCH (10:36)
[2018-06-29] MEDS: CEFTRIAXONE PMX 2GM/50ML 50 ML IV SCH (10:36)
[2018-06-29 13:01] VITALS: BP 101/67
[2018-06-29] MEDS: DAPTOMYCIN 600 MG in SODIUM CHLORIDE 0.9% 100 ML IVPB SCH (15:53)
[2018-06-29 19:31] VITALS: BP 133/76
[2018-06-30 01:49] VITALS: BP 118/74
[2018-06-30] MEDS: MICONAZOLE CRM 2%, 15GM TP SCH ×2 (05:08→16:38)
[2018-06-30] MEDS: INSULIN LISPRO 100 UNITS/ML, PEN SQ-INSULIN SCH ×4 (07:00→20:34)
[2018-06-30 07:10] VITALS: BP 129/80
[2018-06-30] MEDS: CEFTRIAXONE PMX 2GM/50ML 50 ML IV SCH (07:52)
[2018-06-30] MEDS: ENOXAPARIN 40 MG/0.4 ML SQ SCH (11:29)
[2018-06-30 12:30] VITALS: BP 124/76
[2018-06-30] MEDS: DAPTOMYCIN 600 MG in SODIUM CHLORIDE 0.9% 100 ML IVPB SCH (16:35)
[2018-06-30 19:28] VITALS: BP 100/64
[2018-07-01 01:59] VITALS: BP_SYST 109; BP_SYST 111; BP_DIAS 72
[2018-07-01] MEDS: MICONAZOLE CRM 2%, 15GM TP SCH (05:46)
[2018-07-01 06:06] LABS: HCT (SEDRATE) 40.2 % (39.2-51.8)
[2018-07-01 06:10] LABS: BASOPHILS # (AUTO) 0.06 x10^3/uL (0-0.1); BASOPHILS % (AUTO) 1 % (0-1); EOSINOPHILS # (AUTO) 0.77 x10^3/uL (0-0.4); EOSINOPHILS % (AUTO) 10 % (1-7); LYMPHOCYTES # (AUTO) 2.39 x10^3/uL (1-3.4); LYMPHOCYTES % (AUTO) 32 % (22-44); MD NO; MEAN CORPUSCULAR HEMOGLOBIN 30.4 pg (27.5-34.5); MEAN CORPUSCULAR HGB CONC 33.8 g/dL (33.2-36.2); MEAN PLATELET VOLUME 8.8 fL (7.4-10.4); MONOCYTES # (AUTO) 0.64 x10^3/uL (0.2-0.8); MONOCYTES % (AUTO) 9 % (2-9); NEUTROPHILS # (AUTO) 3.59 x10^3/uL (1.8-6.8); NEUTROPHILS % (AUTO) 48 % (42-75); PLATELET COUNT 213 x10^3/uL (130-400); RED BLOOD COUNT 4.59 x10^6/uL (4.38-5.82); RED CELL DISTRIBUTION WIDTH 13.3 % (9.4-14.8)
[2018-07-01 06:15] LABS: ALANINE AMINOTRANSFERASE 23 U/L (12-78); ALBUMIN 3.1 g/dL (3.4-5.0); ANION GAP 4 mmol/L (5-15); CALCIUM 8.7 mg/dL (8.5-10.1); CHLORIDE 109 mmol/L (98-107); CREATININE 0.81 mg/dL (0.7-1.3)
[2018-07-01 06:22] LABS: ALKALINE PHOSPHATASE 105 U/L (45-117); BILIRUBIN,TOTAL 0.4 mg/dL (0.2-1.0); CREATINE KINASE, TOTAL 30 U/L (39-308); TOTAL PROTEIN 7.2 g/dL (6.4-8.2)
[2018-07-01 06:51] VITALS: BP 108/72
[2018-07-01] MEDS: INSULIN LISPRO 100 UNITS/ML, PEN SQ-INSULIN SCH ×4 (07:00→20:01)
[2018-07-01] MEDS: CEFTRIAXONE PMX 2GM/50ML 50 ML IV SCH (09:59)
[2018-07-01] MEDS: ENOXAPARIN 40 MG/0.4 ML SQ SCH (09:59)
[2018-07-01 12:26] VITALS: BP 149/73
[2018-07-01] MEDS: DAPTOMYCIN 600 MG in SODIUM CHLORIDE 0.9% 100 ML IVPB SCH (17:58)
[2018-07-01 19:50] VITALS: BP 119/70
[2018-07-02 01:50] VITALS: BP 138/69
[2018-07-02] MEDS: INSULIN LISPRO 100 UNITS/ML, PEN SQ-INSULIN SCH ×4 (07:00→20:20)
[2018-07-02 07:20] VITALS: BP 112/73
[2018-07-02] MEDS: CEFTRIAXONE PMX 2GM/50ML 50 ML IV SCH (09:42)
[2018-07-02] MEDS: ENOXAPARIN 40 MG/0.4 ML SQ SCH (09:42)
[2018-07-02 13:46] VITALS: BP 105/70
[2018-07-02] MEDS: DAPTOMYCIN 600 MG in SODIUM CHLORIDE 0.9% 100 ML IVPB SCH (16:01)
[2018-07-02 18:35] VITALS: BP 120/77
[2018-07-03 01:37] VITALS: BP 98/62
[2018-07-03 06:44] VITALS: BP 115/73
[2018-07-03] MEDS: INSULIN LISPRO 100 UNITS/ML, PEN SQ-INSULIN SCH ×4 (07:00→19:45)
[2018-07-03] MEDS: ENOXAPARIN 40 MG/0.4 ML SQ SCH (09:12)
[2018-07-03] MEDS: CEFTRIAXONE PMX 2GM/50ML 50 ML IV SCH (09:12)
[2018-07-03 13:24] VITALS: BP 116/74
[2018-07-03] MEDS: DAPTOMYCIN 600 MG in SODIUM CHLORIDE 0.9% 100 ML IVPB SCH (17:09)
[2018-07-03 19:11] VITALS: BP 108/70
[2018-07-04 01:48] VITALS: BP 112/75
[2018-07-04] MEDS: INSULIN LISPRO 100 UNITS/ML, PEN SQ-INSULIN SCH ×4 (07:00→20:45)
[2018-07-04 07:39] VITALS: BP 111/73
[2018-07-04] MEDS: CEFTRIAXONE PMX 2GM/50ML 50 ML IV SCH (09:13)
[2018-07-04] MEDS: ENOXAPARIN 40 MG/0.4 ML SQ SCH (09:14)
[2018-07-04] MEDS: ACETAMINOPHEN 325 MG TABLET PO PRN (17:51)
[2018-07-04] MEDS: DAPTOMYCIN 600 MG in SODIUM CHLORIDE 0.9% 100 ML IVPB SCH (17:52)
[2018-07-04 18:36] VITALS: BP 106/70
[2018-07-05 00:48] VITALS: BP 109/73
[2018-07-05] MEDS: INSULIN LISPRO 100 UNITS/ML, PEN SQ-INSULIN SCH ×4 (07:00→20:45)
[2018-07-05 07:16] VITALS: BP 107/69
[2018-07-05] MEDS: CEFTRIAXONE PMX 2GM/50ML 50 ML IV SCH (09:53)
[2018-07-05] MEDS: ENOXAPARIN 40 MG/0.4 ML SQ SCH (10:00)
[2018-07-05 12:51] VITALS: BP 114/71
[2018-07-05] MEDS: DAPTOMYCIN 600 MG in SODIUM CHLORIDE 0.9% 100 ML IVPB SCH (18:28)
[2018-07-05 19:33] VITALS: BP 110/69
[2018-07-06 00:06] VITALS: BP 107/62
[2018-07-06] MEDS: INSULIN LISPRO 100 UNITS/ML, PEN SQ-INSULIN SCH ×4 (07:00→19:50)
[2018-07-06 07:15] VITALS: BP 111/74
[2018-07-06] MEDS: ENOXAPARIN 40 MG/0.4 ML SQ SCH (07:26)
[2018-07-06] MEDS: CEFTRIAXONE PMX 2GM/50ML 50 ML IV SCH (09:49)
[2018-07-06 14:00] VITALS: BP 111/73
[2018-07-06] MEDS: DAPTOMYCIN 600 MG in SODIUM CHLORIDE 0.9% 100 ML IVPB SCH (18:09)
[2018-07-06 18:58] VITALS: BP 114/72
[2018-07-07 01:16] VITALS: BP 112/72
[2018-07-07 04:54] LABS: CREATININE 0.82 mg/dL (0.7-1.3)
[2018-07-07] MEDS: INSULIN LISPRO 100 UNITS/ML, PEN SQ-INSULIN SCH ×4 (07:00→21:20)
[2018-07-07 07:35] VITALS: BP 110/67
[2018-07-07] MEDS: ENOXAPARIN 40 MG/0.4 ML SQ SCH (09:10)
[2018-07-07] MEDS: CEFTRIAXONE PMX 2GM/50ML 50 ML IV SCH (09:10)
[2018-07-07 14:00] VITALS: BP 115/79
[2018-07-07 16:34] VITALS: BP 107/74
[2018-07-07] MEDS: DAPTOMYCIN 600 MG in SODIUM CHLORIDE 0.9% 100 ML IVPB SCH (16:55)
[2018-07-07 18:23] VITALS: BP 95/66
[2018-07-08 04:24] VITALS: BP 99/69
[2018-07-08 04:56] LABS: BASOPHILS # (AUTO) 0.06 x10^3/uL (0-0.1); BASOPHILS % (AUTO) 1 % (0-1); EOSINOPHILS # (AUTO) 0.62 x10^3/uL (0-0.4); EOSINOPHILS % (AUTO) 8 % (1-7); LYMPHOCYTES # (AUTO) 2.07 x10^3/uL (1-3.4); LYMPHOCYTES % (AUTO) 27 % (22-44); MD NO; MEAN CORPUSCULAR HEMOGLOBIN 29.4 pg (27.5-34.5); MEAN CORPUSCULAR VOLUME 89.1 fL (81-97); MEAN PLATELET VOLUME 8.5 fL (7.4-10.4); MONOCYTES # (AUTO) 0.64 x10^3/uL (0.2-0.8); MONOCYTES % (AUTO) 8 % (2-9); NEUTROPHILS # (AUTO) 4.21 x10^3/uL (1.8-6.8); NEUTROPHILS % (AUTO) 55 % (42-75); PLATELET COUNT 202 x10^3/uL (130-400); RED CELL DISTRIBUTION WIDTH 13.8 % (9.4-14.8)
[2018-07-08 04:58] LABS: ALBUMIN 2.9 g/dL (3.4-5.0); ANION GAP 3 mmol/L (5-15); CALCIUM 8.6 mg/dL (8.5-10.1); CHLORIDE 108 mmol/L (98-107)
[2018-07-08 05:11] LABS: ALANINE AMINOTRANSFERASE 19 U/L (12-78); ALKALINE PHOSPHATASE 106 U/L (45-117); BILIRUBIN,TOTAL 0.3 mg/dL (0.2-1.0); CREATINE KINASE, TOTAL 26 U/L (39-308); CREATININE 0.82 mg/dL (0.7-1.3); TOTAL PROTEIN 6.8 g/dL (6.4-8.2)
[2018-07-08 06:41] LABS: HCT (SEDRATE) 40.1 % (39.2-51.8)
[2018-07-08] MEDS: INSULIN LISPRO 100 UNITS/ML, PEN SQ-INSULIN SCH ×4 (07:00→20:19)
[2018-07-08 07:19] VITALS: BP 103/75
[2018-07-08] MEDS: CEFTRIAXONE PMX 2GM/50ML 50 ML IV SCH (08:33)
[2018-07-08] MEDS: ENOXAPARIN 40 MG/0.4 ML SQ SCH (08:33)
[2018-07-08] MEDS: DAPTOMYCIN 600 MG in SODIUM CHLORIDE 0.9% 100 ML IVPB SCH (17:20)
[2018-07-08] MEDS: ACETAMINOPHEN 325 MG TABLET PO PRN (17:20)
[2018-07-08 20:56] VITALS: BP 117/77
[2018-07-09 02:05] VITALS: BP 112/74
[2018-07-09] MEDS: INSULIN LISPRO 100 UNITS/ML, PEN SQ-INSULIN SCH ×4 (07:00→19:55)
[2018-07-09 07:15] VITALS: BP 113/71
[2018-07-09] MEDS: ENOXAPARIN 40 MG/0.4 ML SQ SCH (10:00)
[2018-07-09] MEDS: CEFTRIAXONE PMX 2GM/50ML 50 ML IV SCH (10:10)
[2018-07-09 14:35] VITALS: BP 130/83
[2018-07-09] MEDS: DAPTOMYCIN 600 MG in SODIUM CHLORIDE 0.9% 100 ML IVPB SCH (18:11)
[2018-07-09 21:54] VITALS: BP 108/71
[2018-07-10 02:44] VITALS: BP 110/80
[2018-07-10 03:37] LABS: CREATININE 0.85 mg/dL (0.7-1.3)
[2018-07-10] MEDS: INSULIN LISPRO 100 UNITS/ML, PEN SQ-INSULIN SCH ×4 (07:00→20:59)
[2018-07-10 07:24] VITALS: BP 110/77
[2018-07-10] MEDS: ENOXAPARIN 40 MG/0.4 ML SQ SCH (09:09)
[2018-07-10] MEDS: CEFTRIAXONE PMX 2GM/50ML 50 ML IV SCH (09:52)
[2018-07-10] MEDS: DAPTOMYCIN 600 MG in SODIUM CHLORIDE 0.9% 100 ML IVPB SCH (17:26)
[2018-07-10 20:25] VITALS: BP 106/70
[2018-07-11 01:41] VITALS: BP 109/72
[2018-07-11] MEDS: INSULIN LISPRO 100 UNITS/ML, PEN SQ-INSULIN SCH ×4 (07:00→20:25)
[2018-07-11 07:42] VITALS: BP 97/67
[2018-07-11] MEDS: CEFTRIAXONE PMX 2GM/50ML 50 ML IV SCH (08:38)
[2018-07-11] MEDS: ENOXAPARIN 40 MG/0.4 ML SQ SCH (08:38)
[2018-07-11 12:17] VITALS: BP 147/89
[2018-07-11] MEDS: DAPTOMYCIN 600 MG in SODIUM CHLORIDE 0.9% 100 ML IVPB SCH (17:57)
[2018-07-11 20:10] VITALS: BP 120/78
[2018-07-12 00:55] VITALS: BP 109/82
[2018-07-12] MEDS: INSULIN LISPRO 100 UNITS/ML, PEN SQ-INSULIN SCH ×4 (07:00→20:47)
[2018-07-12 07:40] VITALS: BP 112/75
[2018-07-12] MEDS: ENOXAPARIN 40 MG/0.4 ML SQ SCH (08:20)
[2018-07-12] MEDS: POLYETHYLENE GLYCOL 17 GM PACKET NG SCH (09:39)
[2018-07-12] MEDS: CEFTRIAXONE PMX 2GM/50ML 50 ML IV SCH (09:42)
[2018-07-12] MEDS: DAPTOMYCIN 600 MG in SODIUM CHLORIDE 0.9% 100 ML IVPB SCH (18:36)
[2018-07-12 19:12] VITALS: BP 119/73
[2018-07-13 01:09] VITALS: BP 108/72
[2018-07-13 04:52] LABS: CREATININE 0.89 mg/dL (0.7-1.3)
[2018-07-13] MEDS: INSULIN LISPRO 100 UNITS/ML, PEN SQ-INSULIN SCH ×4 (07:00→20:40)
[2018-07-13] MEDS: ENOXAPARIN 40 MG/0.4 ML SQ SCH (07:22)
[2018-07-13 07:51] VITALS: BP 124/82
[2018-07-13] MEDS: CEFTRIAXONE PMX 2GM/50ML 50 ML IV SCH (08:12)
[2018-07-13] MEDS: POLYETHYLENE GLYCOL 17 GM PACKET NG SCH (08:12)
[2018-07-13 13:59] VITALS: BP 135/80
[2018-07-13] MEDS: DAPTOMYCIN 600 MG in SODIUM CHLORIDE 0.9% 100 ML IVPB SCH (16:45)
[2018-07-13 20:04] VITALS: BP 127/78
[2018-07-14 00:23] VITALS: BP 99/67
[2018-07-14 05:05] LABS: BASOPHILS # (AUTO) 0.05 x10^3/uL (0-0.1); BASOPHILS % (AUTO) 1 % (0-1); EOSINOPHILS # (AUTO) 0.52 x10^3/uL (0-0.4); EOSINOPHILS % (AUTO) 8 % (1-7); LYMPHOCYTES # (AUTO) 2.47 x10^3/uL (1-3.4); LYMPHOCYTES % (AUTO) 36 % (22-44); MD NO; MEAN CORPUSCULAR HEMOGLOBIN 29.9 pg (27.5-34.5); MEAN CORPUSCULAR HGB CONC 33.8 g/dL (33.2-36.2); MEAN CORPUSCULAR VOLUME 88.5 fL (81-97); MEAN PLATELET VOLUME 8.4 fL (7.4-10.4); MONOCYTES # (AUTO) 0.55 x10^3/uL (0.2-0.8); MONOCYTES % (AUTO) 8 % (2-9); NEUTROPHILS # (AUTO) 3.25 x10^3/uL (1.8-6.8); NEUTROPHILS % (AUTO) 48 % (42-75); PLATELET COUNT 231 x10^3/uL (130-400); RED CELL DISTRIBUTION WIDTH 13.9 % (9.4-14.8)
[2018-07-14 05:22] LABS: CHLORIDE 110 mmol/L (98-107)
[2018-07-14 05:35] LABS: ALANINE AMINOTRANSFERASE 20 U/L (12-78); ALKALINE PHOSPHATASE 94 U/L (45-117); ANION GAP 4 mmol/L (5-15); BILIRUBIN,TOTAL 0.4 mg/dL (0.2-1.0); CALCIUM 8.5 mg/dL (8.5-10.1); CREATINE KINASE, TOTAL 28 U/L (39-308); CREATININE 0.86 mg/dL (0.7-1.3); TOTAL PROTEIN 6.5 g/dL (6.4-8.2)
[2018-07-14] MEDS: INSULIN LISPRO 100 UNITS/ML, PEN SQ-INSULIN SCH ×4 (07:00→20:51)
[2018-07-14 07:46] VITALS: BP 94/66
[2018-07-14] MEDS: ENOXAPARIN 40 MG/0.4 ML SQ SCH (07:46)
[2018-07-14] MEDS: CEFTRIAXONE PMX 2GM/50ML 50 ML IV SCH (07:53)
[2018-07-14] MEDS: POLYETHYLENE GLYCOL 17 GM PACKET NG SCH (07:53)
[2018-07-14 13:33] VITALS: BP 101/69
[2018-07-14] MEDS: DAPTOMYCIN 600 MG in SODIUM CHLORIDE 0.9% 100 ML IVPB SCH (17:28)
[2018-07-14 19:54] VITALS: BP 122/77
[2018-07-15] MEDS: INSULIN LISPRO 100 UNITS/ML, PEN SQ-INSULIN SCH ×4 (07:00→20:58)
[2018-07-15 07:22] VITALS: BP 132/81
[2018-07-15] MEDS: CEFTRIAXONE PMX 2GM/50ML 50 ML IV SCH (08:10)
[2018-07-15] MEDS: POLYETHYLENE GLYCOL 17 GM PACKET NG SCH (08:10)
[2018-07-15] MEDS: ENOXAPARIN 40 MG/0.4 ML SQ SCH (08:16)
[2018-07-15 14:44] VITALS: BP 94/69
[2018-07-15] MEDS: DAPTOMYCIN 600 MG in SODIUM CHLORIDE 0.9% 100 ML IVPB SCH (18:00)
[2018-07-15 19:01] VITALS: BP 119/74
[2018-07-16 00:18] VITALS: BP 113/74
[2018-07-16] MEDS ORDERED: CATHFLO-ALTEPLASE 2 MG/2 ML CATHFLUSH ONE (05:00)
[2018-07-16 06:28] LABS: CREATININE 0.78 mg/dL (0.7-1.3)
[2018-07-16] MEDS: INSULIN LISPRO 100 UNITS/ML, PEN SQ-INSULIN SCH ×4 (07:00→21:23)
[2018-07-16 08:00] VITALS: BP 109/71
[2018-07-16] MEDS: CEFTRIAXONE PMX 2GM/50ML 50 ML IV SCH (08:50)
[2018-07-16] MEDS: POLYETHYLENE GLYCOL 17 GM PACKET NG SCH (08:57)
[2018-07-16] MEDS: ENOXAPARIN 40 MG/0.4 ML SQ SCH (08:58)
[2018-07-16 15:18] VITALS: BP 110/73
[2018-07-16 19:52] VITALS: BP 117/75
[2018-07-17] MEDS: INSULIN LISPRO 100 UNITS/ML, PEN SQ-INSULIN SCH ×2 (08:08→11:00)
[2018-07-17 08:12] VITALS: BP 114/76
[2018-07-17] MEDS ORDERED: CEFTRIAXONE PMX 2GM/50ML 50 ML IV SCH (09:00)
[2018-07-17] MEDS: POLYETHYLENE GLYCOL 17 GM PACKET NG SCH (09:34)
[2018-07-17] MEDS ORDERED: DAPTOMYCIN 600 MG in SODIUM CHLORIDE 0.9% 100 ML IVPB SCH (10:00)
[2018-07-17] MEDS: ENOXAPARIN 40 MG/0.4 ML SQ SCH (10:03)
== END 2018-07-17 13:04 | disposition home or self-care (01) | DRG 854 ==
LOC: ED 16:55 → EDIP 19:45 → 3NE 22:24 → DCLOUNGE 07-17 12:48
PROVIDERS: ADMIT Internal Medicine; ATTEND Hospitalist
PROC: 0Y6N0ZB Detachment at Left Foot, Partial 2nd Ray, Open Approach (ICD-10-PCS; principal; 2018-06-05 12:00)
PROC: 02HV33Z Insertion of Infusion Device into Superior Vena Cava, Percutaneous Approach (ICD-10-PCS; 2018-06-10)
PROC: B548ZZA Ultrasonography of Superior Vena Cava, Guidance (ICD-10-PCS; 2018-06-10)
PROC: B5181ZA Fluoroscopy of Superior Vena Cava using Low Osmolar Contrast, Guidance (ICD-10-PCS; 2018-06-10)
DX: A41.9 Sepsis, unspecified organism (principal); M86.172 Other acute osteomyelitis, left ankle and foot; L03.116 Cellulitis of left lower limb; E44.0 Moderate protein-calorie malnutrition; I82.819 Embolism and thrombosis of superficial veins of unspecified lower extremity; I42.9 Cardiomyopathy, unspecified; L02.611 Cutaneous abscess of right foot; T81.31XA Disruption of external operation (surgical) wound, not elsewhere classified, initial encounter; D64.9 Anemia, unspecified; I25.10 Atherosclerotic heart disease of native coronary artery without angina pectoris; E78.5 Hyperlipidemia, unspecified; B37.2 Candidiasis of skin and nail; D72.1 Eosinophilia; E11.40 Type 2 diabetes mellitus with diabetic neuropathy, unspecified; E11.621 Type 2 diabetes mellitus with foot ulcer; E11.65 Type 2 diabetes mellitus with hyperglycemia; E11.69 Type 2 diabetes mellitus with other specified complication; E66.9 Obesity, unspecified; E87.6 Hypokalemia; I11.0 Hypertensive heart disease with heart failure; I50.9 Heart failure, unspecified; K40.90 Unilateral inguinal hernia, without obstruction or gangrene, not specified as recurrent; K59.00 Constipation, unspecified; L97.529 Non-pressure chronic ulcer of other part of left foot with unspecified severity; M21.969 Unspecified acquired deformity of unspecified lower leg; Z59.0 Homelessness; Z82.49 Family history of ischemic heart disease and other diseases of the circulatory system; Z86.72 Personal history of thrombophlebitis; Z89.421 Acquired absence of other right toe(s); Z89.422 Acquired absence of other left toe(s); Z87.01 Personal history of pneumonia (recurrent); Z79.2 Long term (current) use of antibiotics; Y83.8 Other surgical procedures as the cause of abnormal reaction of the patient, or of later complication, without mention of misadventure at the time of the procedure; Y92.238 Other place in hospital as the place of occurrence of the external cause
CPT/HCPCS: 36415; 73590; 73630; 84145; 99285; J7613; 36573; 76857; 80048; 80053; 80061; 80202; 82274; 82550; 82565; 82962; 83036; 83540; 83550; 83605; 83735; 84439; 84443; 84484; 85025; 85610; 85651; 86140; 87040; 87070; 87075; 87077; 87147; 87186; 87205; 88305; 88311; 93005; 94640; 96365; 96366; A9585; G0378; J0690; J0696; J0878; J1644; J1650; J1885; J2250; J2405; J2543; J2704; J2997; J3010; J3370; C1751; J1815; J2270; J7030; J7040; J7050

== ENCOUNTER 2018-07-20 12:29 | Inpatient (IN) | payer MEDICAID ==
[~2018-07-20] VITALS: Ht 188 cm; Wt 88.4 kg
[~2018-07-20 12:29] MED LIST changes: +ALBU18HF INH; +ATOR20TA86 PO; +METO5AMP PO
[2018-07-20] MEDS ORDERED: SODIUM CHLORIDE FLUSH 10ML SYR IVF ONE (13:00)
[2018-07-20] MEDS ORDERED: ONDANSETRON 2MG/ML, 2ML IVPush ONE (13:00)
[2018-07-20 13:10] LABS: ALANINE AMINOTRANSFERASE 34 U/L (12-78); ALBUMIN 3.8 g/dL (3.4-5.0); ANION GAP 7 mmol/L (5-15); CALCIUM 8.9 mg/dL (8.5-10.1); CHLORIDE 108 mmol/L (98-107); CREATININE 1.15 mg/dL (0.7-1.3)
[2018-07-20 13:13] LABS: ALKALINE PHOSPHATASE 151 U/L (45-117); BILIRUBIN,TOTAL 0.6 mg/dL (0.2-1.0); MEAN CORPUSCULAR HEMOGLOBIN 29.2 pg (27.5-34.5); MEAN CORPUSCULAR HGB CONC 32.9 g/dL (33.2-36.2); MEAN CORPUSCULAR VOLUME 88.6 fL (81-97); MEAN PLATELET VOLUME 8.3 fL (7.4-10.4); PLATELET COUNT 323 x10^3/uL (130-400); RED CELL DISTRIBUTION WIDTH 13.8 % (9.4-14.8)
[2018-07-20] MEDS ORDERED: ONDANSETRON 2MG/ML, 2ML ONE (13:17)
--- NOTE | 2018-07-20 13:28 | NUR ---
PT AWARE TO PROVIDE STOOL
[2018-07-20] MEDS ORDERED: SODIUM CHLORIDE 0.9% 1,000ML IVBOLUS ONE (13:30)
[2018-07-20 13:52] LABS: MD SCAN
[2018-07-20 13:53] LABS: BASOPHILS # (AUTO) 0.01 x10^3/uL (0-0.1); BASOPHILS % (AUTO) 0 % (0-1); EOSINOPHILS # (AUTO) 0.05 x10^3/uL (0-0.4); EOSINOPHILS % (AUTO) 0 % (1-7); LYMPHOCYTES # (AUTO) 0.46 x10^3/uL (1-3.4); LYMPHOCYTES % (AUTO) 4 % (22-44); MONOCYTES # (AUTO) 0.39 x10^3/uL (0.2-0.8); MONOCYTES % (AUTO) 3 % (2-9); NEUTROPHILS # (AUTO) 11.08 x10^3/uL (1.8-6.8); NEUTROPHILS % (AUTO) 92 % (42-75)
--- NOTE | 2018-07-20 14:23 | NUR ---
NO STOOL UNABLE TO PROVIDE UA
--- NOTE | 2018-07-20 15:03 | NUR ---
stool collected and sent to lab
[2018-07-20 15:34] LABS: MICROSCOPIC AUTO
[2018-07-20 15:37] LABS: CULTURE INDICATED? NO
--- NOTE | 2018-07-20 16:06 | NUR ---
REPORT GIVEN TO MIR FORTUNE
[2018-07-20 16:26] LABS: CLOSTRIDIUM DIFFICILE ANTIGEN NEGATIVE; CLOSTRIDIUM DIFFICILE TOXIN NEGATIVE (Negative)
[2018-07-20] MEDS ORDERED: hydrALAzine 20 MG/ML, 1ML IVPush PRN (17:00)
[2018-07-20] MEDS ORDERED: GUAIFENESIN/COD200MG-20MG/10ML LIQUID PO PRN (17:00)
[2018-07-20] MEDS ORDERED: ACETAMINOPHEN 325 MG TABLET PO PRN (17:00)
[2018-07-20] MEDS ORDERED: ONDANSETRON 2MG/ML, 2ML IVPush PRN (17:00)
[2018-07-20] MEDS ORDERED: NITROGLYCERIN 0.4 MG BOTTLE (25 TABS) SL PRN (17:00)
[2018-07-20] MEDS ORDERED: ALBUTEROL SULFATE 2.5 MG/3 ML HHN PRN (17:00)
[2018-07-20] MEDS ORDERED: DOCUSATE 100 MG CAPSULE PO PRN (17:00)
[2018-07-20] MEDS ORDERED: OXYcodone IR 5MG TABLET PO PRN (17:00)
[2018-07-20 17:21] VITALS: BP 120/75
[2018-07-20] MEDS: ENOXAPARIN 40 MG/0.4 ML SQ SCH (17:31)
[2018-07-20] MEDS: LACTATED RINGERS 1,000 ML IV SCH ×2 (17:31→23:40)
[2018-07-20 19:06] VITALS: BP 94/60
[2018-07-20] MEDS: ZOLPIDEM 5MG TABLET PO PRN ×2 (20:56→22:08)
[2018-07-20] MEDS: INSULIN LISPRO 100 UNITS/ML, PEN SQ-INSULIN SCH (21:00)
[2018-07-20] MEDS: CYCLOBENZAPRINE 10 MG TABLET PO PRN (22:08)
[2018-07-21 02:51] VITALS: BP 97/59
[2018-07-21 04:41] LABS: MD NO
[2018-07-21 04:42] LABS: BASOPHILS # (AUTO) 0.01 x10^3/uL (0-0.1); BASOPHILS % (AUTO) 0 % (0-1); EOSINOPHILS # (AUTO) 0.05 x10^3/uL (0-0.4); EOSINOPHILS % (AUTO) 1 % (1-7); LYMPHOCYTES # (AUTO) 1.04 x10^3/uL (1-3.4); LYMPHOCYTES % (AUTO) 20 % (22-44); MEAN CORPUSCULAR HEMOGLOBIN 29.3 pg (27.5-34.5); MEAN CORPUSCULAR HGB CONC 33.2 g/dL (33.2-36.2); MEAN CORPUSCULAR VOLUME 88.3 fL (81-97); MEAN PLATELET VOLUME 8.1 fL (7.4-10.4); MONOCYTES # (AUTO) 0.32 x10^3/uL (0.2-0.8); MONOCYTES % (AUTO) 6 % (2-9); NEUTROPHILS # (AUTO) 3.77 x10^3/uL (1.8-6.8); NEUTROPHILS % (AUTO) 73 % (42-75); PLATELET COUNT 233 x10^3/uL (130-400); RED BLOOD COUNT 4.18 x10^6/uL (4.38-5.82); RED CELL DISTRIBUTION WIDTH 14.3 % (9.4-14.8)
[2018-07-21 04:45] LABS: ALBUMIN 2.5 g/dL (3.4-5.0); ANION GAP 5 mmol/L (5-15); CALCIUM 7.6 mg/dL (8.5-10.1); CHLORIDE 114 mmol/L (98-107)
[2018-07-21 04:48] LABS: ALANINE AMINOTRANSFERASE 21 U/L (12-78); ALKALINE PHOSPHATASE 101 U/L (45-117); BILIRUBIN,TOTAL 0.4 mg/dL (0.2-1.0); CREATININE 0.81 mg/dL (0.7-1.3); TOTAL PROTEIN 5.5 g/dL (6.4-8.2)
[2018-07-21] MEDS: LACTATED RINGERS 1,000 ML IV SCH ×3 (05:01→23:34)
[2018-07-21] MEDS: INSULIN LISPRO 100 UNITS/ML, PEN SQ-INSULIN SCH ×4 (07:00→20:50)
[2018-07-21 07:30] VITALS: BP 96/65
[2018-07-21] MEDS ORDERED: ATORVASTATIN 20 MG TABLET PO SCH (09:00)
[2018-07-21 12:12] VITALS: BP 115/67
[2018-07-21] MEDS: ENOXAPARIN 40 MG/0.4 ML SQ SCH (17:00)
[2018-07-21] MEDS: ZOLPIDEM 5MG TABLET PO PRN (20:17)
[2018-07-21] MEDS: CYCLOBENZAPRINE 10 MG TABLET PO PRN (20:17)
[2018-07-21 20:45] VITALS: BP 114/66
[2018-07-22 02:50] VITALS: BP 125/74
[2018-07-22 05:45] LABS: ANION GAP 6 mmol/L (5-15); CALCIUM 7.7 mg/dL (8.5-10.1); CHLORIDE 113 mmol/L (98-107)
[2018-07-22 05:48] LABS: CREATININE 0.88 mg/dL (0.7-1.3)
== END 2018-07-22 07:27 | disposition left against medical advice (07) | DRG 871 ==
LOC: ED 13:23 → EDIP 15:32 → 3NE 17:11
PROVIDERS: ADMIT Internal Medicine; ATTEND Internal Medicine
DX: A41.9 Sepsis, unspecified organism (principal); N17.0 Acute kidney failure with tubular necrosis; K85.90 Acute pancreatitis without necrosis or infection, unspecified; I42.9 Cardiomyopathy, unspecified; F10.239 Alcohol dependence with withdrawal, unspecified; E86.0 Dehydration; I25.10 Atherosclerotic heart disease of native coronary artery without angina pectoris; J45.909 Unspecified asthma, uncomplicated; F10.229 Alcohol dependence with intoxication, unspecified; A08.4 Viral intestinal infection, unspecified; E78.5 Hyperlipidemia, unspecified; Z53.21 Procedure and treatment not carried out due to patient leaving prior to being seen by health care provider; I10 Essential (primary) hypertension; E11.9 Type 2 diabetes mellitus without complications; Z59.0 Homelessness; Z89.422 Acquired absence of other left toe(s); Z89.421 Acquired absence of other right toe(s); Z79.84 Long term (current) use of oral hypoglycemic drugs; Z79.899 Other long term (current) drug therapy; Z82.49 Family history of ischemic heart disease and other diseases of the circulatory system; Z82.3 Family history of stroke; Z84.89 Family history of other specified conditions
CPT/HCPCS: 36415; 80048; 80053; 81001; 82962; 83690; 83735; 84100; 85025; 87324; 89055; 96374; 96375; G0378; J2405; J1815; J7030; J7120

== ENCOUNTER 2018-07-29 09:59 | Emergency (ER) | payer MEDICAID ==
[~2018-07-29] VITALS: Ht 188 cm; Wt 106.8 kg
--- NOTE | 2018-07-29 12:00 | NUR ---
LUTE PACKER OR APPLIER. REPEAT VITAL SIGNS COMPLETED. BETSEY MORALES EVALUATING PT IN TRIAGE. PT BACK TO LOBBY WITH STEADY GAIT. A&OX4. AWAITING ROOM IN ER. PT UPSET ABOUT WAIT TIME "I HAD TO LET MYSELF OUT OF THE HOSPITAL BEFORE, I'M TIRED OF WAITING, HOW LONG WILL IT BE, I MAY JUST LEAVE, THIS IS RIDICULOUS." BETSEY MORALES DISCUSSED POC WITH PT, ADDRESSED CONCERNS. PT AGREE TO CONTINUE TO WAIT IN LOBBY. SITTING IN CHAIR, AWAITING ROOM.
[2018-07-29 12:35] LABS: BASOPHILS # (AUTO) 0.04 x10^3/uL (0-0.1); BASOPHILS % (AUTO) 0 % (0-1); EOSINOPHILS # (AUTO) 0.21 x10^3/uL (0-0.4); EOSINOPHILS % (AUTO) 2 % (1-7); LYMPHOCYTES # (AUTO) 2.34 x10^3/uL (1-3.4); LYMPHOCYTES % (AUTO) 22 % (22-44); MD NO; MEAN CORPUSCULAR HEMOGLOBIN 29.4 pg (27.5-34.5); MEAN CORPUSCULAR HGB CONC 32.8 g/dL (33.2-36.2); MEAN CORPUSCULAR VOLUME 89.5 fL (81-97); MEAN PLATELET VOLUME 7.5 fL (7.4-10.4); MONOCYTES # (AUTO) 0.66 x10^3/uL (0.2-0.8); MONOCYTES % (AUTO) 6 % (2-9); NEUTROPHILS # (AUTO) 7.58 x10^3/uL (1.8-6.8); NEUTROPHILS % (AUTO) 70 % (42-75); PLATELET COUNT 378 x10^3/uL (130-400); RED BLOOD COUNT 4.97 x10^6/uL (4.38-5.82); RED CELL DISTRIBUTION WIDTH 14.5 % (9.4-14.8)
[2018-07-29 12:42] LABS: ALANINE AMINOTRANSFERASE 53 U/L (12-78); ALBUMIN 3.9 g/dL (3.4-5.0); ANION GAP 5 mmol/L (5-15); CALCIUM 9.1 mg/dL (8.5-10.1); CHLORIDE 114 mmol/L (98-107); CREATININE 1.11 mg/dL (0.7-1.3)
[2018-07-29 12:44] LABS: ALKALINE PHOSPHATASE 154 U/L (45-117); BILIRUBIN,TOTAL 0.5 mg/dL (0.2-1.0); TOTAL PROTEIN 8.2 g/dL (6.4-8.2)
--- NOTE | 2018-07-29 13:29 | NUR ---
PT TO ED FOR N/D X2 DAYS. PT STATES WAS ADMITTED IN JUNE FOR SAME. PT STATES EXTENSIVE ABX HX, PRESCRIBED MULTIPLE ABX FOR 6 WEEKS STRAIGHT FROM May TO June. CONNECTED TO MONITORS. VSS. UA AND STOOL SAMPLE COLLECTED AND SENT. EDMD TO BEDSIDE FOR ASSESSMENT. AWAITING ORDERS.
[2018-07-29 13:46] LABS: MICROSCOPIC NOT IND
[2018-07-29 13:51] LABS: CULTURE INDICATED? NO
[2018-07-29 14:54] LABS: CLOSTRIDIUM DIFFICILE ANTIGEN NEGATIVE; CLOSTRIDIUM DIFFICILE TOXIN NEGATIVE (Negative)
== END 2018-07-29 15:59 | disposition home or self-care (01) ==
LOC: ED 13:37
DX: R19.7 Diarrhea, unspecified (principal); I50.9 Heart failure, unspecified; I11.0 Hypertensive heart disease with heart failure; E11.9 Type 2 diabetes mellitus without complications; E78.5 Hyperlipidemia, unspecified; R10.84 Generalized abdominal pain; R11.0 Nausea
CPT/HCPCS: 36415; 74021; 80053; 81003; 83690; 85025; 87324; 89055; 99284

== ENCOUNTER 2018-08-08 08:41 | Inpatient (IN) | payer MEDICAID ==
[~2018-08-08] VITALS: Ht 188 cm; Wt 100.1 kg
[2018-08-08 09:45] LABS: BASOPHILS # (AUTO) 0.08 x10^3/uL (0-0.1); BASOPHILS % (AUTO) 1 % (0-1); EOSINOPHILS % (AUTO) 1 % (1-7); LYMPHOCYTES # (AUTO) 1.33 x10^3/uL (1-3.4); LYMPHOCYTES % (AUTO) 17 % (22-44); MD NO; MEAN CORPUSCULAR HGB CONC 32.8 g/dL (33.2-36.2); MEAN CORPUSCULAR VOLUME 88.4 fL (81-97); MEAN PLATELET VOLUME 7.3 fL (7.4-10.4); MONOCYTES % (AUTO) 8 % (2-9); NEUTROPHILS # (AUTO) 5.88 x10^3/uL (1.8-6.8); NEUTROPHILS % (AUTO) 74 % (42-75); PLATELET COUNT 253 x10^3/uL (130-400); RED BLOOD COUNT 4.22 x10^6/uL (4.38-5.82); RED CELL DISTRIBUTION WIDTH 15.5 % (9.4-14.8)
--- NOTE | 2018-08-08 09:52 | NUR ---
REPORT RECEIVED FROM TASK RN STEPHANI.
[2018-08-08 09:54] LABS: ANION GAP 6 mmol/L (5-15); CALCIUM 8.7 mg/dL (8.5-10.1); CHLORIDE 107 mmol/L (98-107); CREATININE 1.01 mg/dL (0.7-1.3)
[2018-08-08] MEDS ORDERED: METFORMIN PO (10:17)
[2018-08-08] MEDS ORDERED: LISINOPRIL PO (10:17)
[2018-08-08] MEDS ORDERED: GLIPIZIDE PO (10:17)
--- NOTE | 2018-08-08 10:17 | NUR ---
PT A&O, RESPS EVEN AND UNLABORED. PT STATES LEFT FOOT PAIN "IS NOT TOO BAD RIGHT NOW", UNABLE TO RATE FROM 1-10. PT ATTACHED TO BP AND SPO2 MONITORS. CALL LIGHT IN REACH. AWAITING LABS AND DISPO, PT UPDATED WITH POC.
[2018-08-08 10:49] LABS: HCT (SEDRATE) 37.3 % (39.2-51.8)
--- NOTE | 2018-08-08 11:03 | NUR ---
pt up to bathroom to void, gait steady. all results back, chart up for recheck. awaiting MD and dispo.
--- NOTE | 2018-08-08 12:00 | NUR ---
pt a&o, resps even and unlabored, no complaint at this time. repeat VS reviewed with BRIDGER Vargas. awaiting consult from pt's ortho surgeon at this time, pt informed of POC.
--- NOTE | 2018-08-08 12:31 | NUR ---
PIV PLACED, PT TO MRI AT THIS TIME. NADN AT TRANSPORT.
[2018-08-08] MEDS ORDERED: GADOBUTROL 10 MMOL/10 ML PFS ONE (12:58)
--- NOTE | 2018-08-08 12:59 | NUR ---
REPORT GIVEN TO MIR BERNARD, PT TO GO TO ROOM 362 WHEN DONE WITH MRI.
--- NOTE | 2018-08-08 13:35 | NUR ---
PT BACK FROM MRI, HOSPITALIST AT BEDSIDE TO ADMIT PT.
[2018-08-08] MEDS ORDERED: GUAIFENESIN/DM 200-20MG, 10ML UDC PO PRN (14:00)
[2018-08-08] MEDS ORDERED: DOCUSATE 100 MG CAPSULE PO PRN (14:00)
[2018-08-08] MEDS ORDERED: ACETAMINOPHEN 325 MG TABLET PO PRN (14:00)
[2018-08-08] MEDS ORDERED: VANCOMYCIN PER PHARMACY MC PRN (14:00)
[2018-08-08] MEDS ORDERED: hydrALAzine 20 MG/ML, 1ML IVPush PRN (14:00)
[2018-08-08] MEDS ORDERED: ENALAPRILAT 1.25 MG/ML, 2ML IVPush PRN (14:00)
[2018-08-08] MEDS ORDERED: POLYETHYLENE GLYCOL 17 GM PACKET PO PRN (14:00)
[2018-08-08] MEDS ORDERED: BISACODYL 10 MG SUPP PR PRN (14:00)
[2018-08-08 14:13] LABS: FREE T4 (FREE THYROXINE) 1.24 ng/dL (0.76-1.46); THYROID STIMULATING HORMONE 1.53 mIU/L (0.358-3.740)
[2018-08-08] MEDS ORDERED: PHARMACOKINETIC CONSULTATION MC ONE (14:30)
[2018-08-08] MEDS ORDERED: PHARMACOKINETIC MONITORING MC PRN (14:30)
[2018-08-08] MEDS ORDERED: DEXTROSE 4 GM TAB.CHEW PO PRN (15:30)
[2018-08-08] MEDS ORDERED: GLUCAGON 1 MG IM PRN (15:30)
[2018-08-08] MEDS ORDERED: DEXTROSE 50%, 50ML SYRINGE IVPush PRN (15:30)
[2018-08-08] MEDS: morphine SULFATE 10 MG/ML, 1ML IVPush PRN ×2 (15:49→19:40)
[2018-08-08 16:00] LABS: HEMOGLOBIN A1C 6.7 % (4.2-6.3)
[2018-08-08] MEDS: VANCOMYCIN 2,200 MG in SODIUM CHLORIDE 0.9% 500 ML IV SCH (16:47)
[2018-08-08] MEDS: LACTATED RINGERS 1,000 ML IV SCH (16:47)
[2018-08-08] MEDS: HEPARIN 5,000 UNITS/ML, 1ML SQ SCH ×2 (16:53→22:00)
[2018-08-08] MEDS: INSULIN LISPRO 100 UNITS/ML, PEN SQ-INSULIN SCH ×2 (18:24→20:03)
[2018-08-08] MEDS: SODIUM CHLORIDE FLUSH 10ML SYR IVF SCH (19:40)
[2018-08-08] MEDS: PIPERACILLIN/TAZO/PMX 3.375GM 50 ML IV SCH (20:20)
[2018-08-09] MEDS: PIPERACILLIN/TAZO/PMX 3.375GM 50 ML IV SCH ×4 (02:43→20:28)
[2018-08-09] MEDS: morphine SULFATE 10 MG/ML, 1ML IVPush PRN ×5 (02:43→19:37)
[2018-08-09] MEDS: HEPARIN 5,000 UNITS/ML, 1ML SQ SCH ×3 (05:04→22:00)
[2018-08-09 05:29] LABS: BASOPHILS # (AUTO) 0.04 x10^3/uL (0-0.1); BASOPHILS % (AUTO) 1 % (0-1); EOSINOPHILS # (AUTO) 0.29 x10^3/uL (0-0.4); EOSINOPHILS % (AUTO) 4 % (1-7); LYMPHOCYTES % (AUTO) 21 % (22-44); MD NO; MEAN CORPUSCULAR HGB CONC 33.5 g/dL (33.2-36.2); MEAN CORPUSCULAR VOLUME 89.8 fL (81-97); MEAN PLATELET VOLUME 7.1 fL (7.4-10.4); MONOCYTES # (AUTO) 0.62 x10^3/uL (0.2-0.8); MONOCYTES % (AUTO) 9 % (2-9); NEUTROPHILS # (AUTO) 4.22 x10^3/uL (1.8-6.8); NEUTROPHILS % (AUTO) 64 % (42-75); PLATELET COUNT 240 x10^3/uL (130-400); RED BLOOD COUNT 3.98 x10^6/uL (4.38-5.82); RED CELL DISTRIBUTION WIDTH 15.6 % (9.4-14.8)
[2018-08-09 05:42] LABS: ANION GAP 5 mmol/L (5-15); CALCIUM 8.5 mg/dL (8.5-10.1); CHLORIDE 109 mmol/L (98-107)
[2018-08-09 05:47] LABS: ALANINE AMINOTRANSFERASE 21 U/L (12-78); ALBUMIN 2.7 g/dL (3.4-5.0); ALKALINE PHOSPHATASE 103 U/L (45-117); BILIRUBIN,TOTAL 0.8 mg/dL (0.2-1.0); TOTAL PROTEIN 6.3 g/dL (6.4-8.2)
[2018-08-09] MEDS: INSULIN LISPRO 100 UNITS/ML, PEN SQ-INSULIN SCH ×4 (07:23→20:28)
[2018-08-09 07:50] VITALS: BP 126/78
[2018-08-09] MEDS: LACTATED RINGERS 1,000 ML IV SCH ×3 (10:00→20:00)
[2018-08-09] MEDS: SODIUM CHLORIDE FLUSH 10ML SYR IVF SCH ×2 (10:08→20:28)
[2018-08-09] MEDS: VANCOMYCIN 2,200 MG in SODIUM CHLORIDE 0.9% 500 ML IV SCH (10:08)
[2018-08-09 14:04] VITALS: BP 96/63
[2018-08-09 19:55] VITALS: BP 108/64
[2018-08-10 01:56] VITALS: BP 107/62
[2018-08-10] MEDS: morphine SULFATE 10 MG/ML, 1ML IVPush PRN ×6 (02:35→21:23)
[2018-08-10] MEDS: PIPERACILLIN/TAZO/PMX 3.375GM 50 ML IV SCH ×4 (02:35→20:13)
[2018-08-10] MEDS: VANCOMYCIN 2,200 MG in SODIUM CHLORIDE 0.9% 500 ML IV SCH ×2 (03:22→21:24)
[2018-08-10 04:37] LABS: BASOPHILS # (AUTO) 0.03 x10^3/uL (0-0.1); BASOPHILS % (AUTO) 1 % (0-1); EOSINOPHILS # (AUTO) 0.34 x10^3/uL (0-0.4); EOSINOPHILS % (AUTO) 6 % (1-7); LYMPHOCYTES # (AUTO) 1.82 x10^3/uL (1-3.4); LYMPHOCYTES % (AUTO) 32 % (22-44); MD NO; MEAN CORPUSCULAR HEMOGLOBIN 29.4 pg (27.5-34.5); MEAN CORPUSCULAR HGB CONC 33.1 g/dL (33.2-36.2); MEAN CORPUSCULAR VOLUME 88.6 fL (81-97); MEAN PLATELET VOLUME 7.5 fL (7.4-10.4); MONOCYTES % (AUTO) 11 % (2-9); NEUTROPHILS # (AUTO) 2.94 x10^3/uL (1.8-6.8); NEUTROPHILS % (AUTO) 51 % (42-75); PLATELET COUNT 222 x10^3/uL (130-400); RED CELL DISTRIBUTION WIDTH 15.5 % (9.4-14.8)
[2018-08-10 04:48] LABS: ALBUMIN 2.6 g/dL (3.4-5.0); ANION GAP 5 mmol/L (5-15); CALCIUM 8.1 mg/dL (8.5-10.1); CHLORIDE 110 mmol/L (98-107)
[2018-08-10 04:53] LABS: ALANINE AMINOTRANSFERASE 20 U/L (12-78); ALKALINE PHOSPHATASE 95 U/L (45-117); BILIRUBIN,TOTAL 0.7 mg/dL (0.2-1.0)
[2018-08-10] MEDS: LACTATED RINGERS 1,000 ML IV SCH (05:27)
[2018-08-10] MEDS: HEPARIN 5,000 UNITS/ML, 1ML SQ SCH ×3 (05:27→22:00)
[2018-08-10] MEDS: INSULIN LISPRO 100 UNITS/ML, PEN SQ-INSULIN SCH ×4 (07:00→20:17)
[2018-08-10 08:35] VITALS: BP 106/67
[2018-08-10] MEDS: SODIUM CHLORIDE FLUSH 10ML SYR IVF SCH ×2 (09:00→20:16)
[2018-08-10 12:19] VITALS: BP 99/63
[2018-08-10 19:22] VITALS: BP 118/72
[2018-08-11 01:40] VITALS: BP 120/71
[2018-08-11] MEDS: morphine SULFATE 10 MG/ML, 1ML IVPush PRN ×2 (02:59→08:29)
[2018-08-11] MEDS: PIPERACILLIN/TAZO/PMX 3.375GM 50 ML IV SCH ×4 (02:59→21:05)
[2018-08-11] MEDS: HEPARIN 5,000 UNITS/ML, 1ML SQ SCH ×3 (05:27→21:12)
[2018-08-11 07:54] VITALS: BP 109/70
[2018-08-11] MEDS: INSULIN LISPRO 100 UNITS/ML, PEN SQ-INSULIN SCH ×4 (08:10→21:06)
[2018-08-11] MEDS: GABAPENTIN 300 MG CAPSULE PO PRN (12:15)
[2018-08-11] MEDS: SODIUM CHLORIDE FLUSH 10ML SYR IVF SCH ×2 (12:19→21:06)
[2018-08-11 13:50] VITALS: BP 103/60
[2018-08-11] MEDS: VANCOMYCIN 2,200 MG in SODIUM CHLORIDE 0.9% 500 ML IV SCH (15:00)
[2018-08-11] MEDS: VANCOMYCIN 2,000 MG in SODIUM CHLORIDE 0.9% 500 ML IV SCH (16:21)
[2018-08-11 18:42] VITALS: BP 115/76
[2018-08-12] MEDS: GABAPENTIN 300 MG CAPSULE PO PRN ×2 (00:03→12:37)
[2018-08-12 02:09] VITALS: BP 118/74
[2018-08-12] MEDS: PIPERACILLIN/TAZO/PMX 3.375GM 50 ML IV SCH ×4 (02:35→21:30)
[2018-08-12] MEDS: HEPARIN 5,000 UNITS/ML, 1ML SQ SCH ×3 (06:25→21:30)
[2018-08-12] MEDS: INSULIN LISPRO 100 UNITS/ML, PEN SQ-INSULIN SCH ×4 (07:22→21:29)
[2018-08-12] MEDS: SODIUM CHLORIDE FLUSH 10ML SYR IVF SCH ×2 (07:28→21:29)
[2018-08-12 07:38] VITALS: BP 115/77
[2018-08-12] MEDS: POLYETHYLENE GLYCOL 17 GM PACKET PO SCH (09:00)
[2018-08-12] MEDS: VANCOMYCIN 2,000 MG in SODIUM CHLORIDE 0.9% 500 ML IV SCH (10:08)
[2018-08-12] MEDS: DOCUSATE 100 MG CAPSULE PO SCH (10:08)
[2018-08-12 14:07] VITALS: BP 110/72
[2018-08-12 19:22] VITALS: BP 112/70
[2018-08-13] MEDS: GABAPENTIN 300 MG CAPSULE PO PRN ×2 (00:26→12:51)
[2018-08-13] MEDS: PIPERACILLIN/TAZO/PMX 3.375GM 50 ML IV SCH ×4 (02:29→21:05)
[2018-08-13 03:07] VITALS: BP 112/67
[2018-08-13] MEDS: VANCOMYCIN 2,000 MG in SODIUM CHLORIDE 0.9% 500 ML IV SCH (04:56)
[2018-08-13] MEDS: HEPARIN 5,000 UNITS/ML, 1ML SQ SCH ×3 (04:56→21:05)
[2018-08-13 05:47] LABS: BASOPHILS # (AUTO) 0.04 x10^3/uL (0-0.1); BASOPHILS % (AUTO) 1 % (0-1); EOSINOPHILS # (AUTO) 0.24 x10^3/uL (0-0.4); EOSINOPHILS % (AUTO) 4 % (1-7); LYMPHOCYTES % (AUTO) 31 % (22-44); MD NO; MEAN CORPUSCULAR HEMOGLOBIN 29.8 pg (27.5-34.5); MEAN CORPUSCULAR HGB CONC 33.5 g/dL (33.2-36.2); MEAN CORPUSCULAR VOLUME 88.8 fL (81-97); MEAN PLATELET VOLUME 7.5 fL (7.4-10.4); MONOCYTES % (AUTO) 7 % (2-9); NEUTROPHILS # (AUTO) 3.99 x10^3/uL (1.8-6.8); NEUTROPHILS % (AUTO) 58 % (42-75); PLATELET COUNT 236 x10^3/uL (130-400); RED BLOOD COUNT 3.99 x10^6/uL (4.38-5.82); RED CELL DISTRIBUTION WIDTH 15.2 % (9.4-14.8)
[2018-08-13 05:51] LABS: ANION GAP 5 mmol/L (5-15); CALCIUM 8.4 mg/dL (8.5-10.1); CHLORIDE 110 mmol/L (98-107); CREATININE 0.83 mg/dL (0.7-1.3)
[2018-08-13 06:45] VITALS: BP 133/81
[2018-08-13] MEDS: INSULIN LISPRO 100 UNITS/ML, PEN SQ-INSULIN SCH ×4 (07:45→19:48)
[2018-08-13] MEDS: SODIUM CHLORIDE FLUSH 10ML SYR IVF SCH ×2 (07:46→21:05)
[2018-08-13] MEDS: DOCUSATE 100 MG CAPSULE PO SCH (07:59)
[2018-08-13] MEDS: POLYETHYLENE GLYCOL 17 GM PACKET PO SCH (08:00)
[2018-08-13 12:28] VITALS: BP 120/77
[2018-08-13 12:50] VITALS: BP 124/77
[2018-08-13] MEDS: LISINOPRIL 10 MG TABLET PO SCH (12:54)
[2018-08-13 20:00] VITALS: BP 116/76
[2018-08-14] MEDS: GABAPENTIN 300 MG CAPSULE PO PRN ×2 (00:42→14:37)
[2018-08-14 00:43] VITALS: BP 102/60
[2018-08-14] MEDS: PIPERACILLIN/TAZO/PMX 3.375GM 50 ML IV SCH ×4 (03:06→21:00)
[2018-08-14] MEDS: VANCOMYCIN 2,000 MG in SODIUM CHLORIDE 0.9% 500 ML IV SCH (05:09)
[2018-08-14] MEDS: HEPARIN 5,000 UNITS/ML, 1ML SQ SCH ×3 (05:09→20:57)
[2018-08-14] MEDS: INSULIN LISPRO 100 UNITS/ML, PEN SQ-INSULIN SCH ×4 (07:00→21:01)
[2018-08-14 07:08] VITALS: BP 106/72
[2018-08-14] MEDS: LISINOPRIL 10 MG TABLET PO SCH (08:16)
[2018-08-14] MEDS: DOCUSATE 100 MG CAPSULE PO SCH (09:00)
[2018-08-14] MEDS: SODIUM CHLORIDE FLUSH 10ML SYR IVF SCH ×2 (09:00→21:01)
[2018-08-14] MEDS: POLYETHYLENE GLYCOL 17 GM PACKET PO SCH (09:00)
[2018-08-14 16:00] VITALS: BP 115/73
[2018-08-14 20:00] VITALS: BP 119/70
[2018-08-15 02:00] VITALS: BP 124/77
[2018-08-15] MEDS: GABAPENTIN 300 MG CAPSULE PO PRN ×2 (02:55→18:33)
[2018-08-15] MEDS: PIPERACILLIN/TAZO/PMX 3.375GM 50 ML IV SCH ×4 (02:56→20:29)
[2018-08-15] MEDS: HEPARIN 5,000 UNITS/ML, 1ML SQ SCH ×3 (05:06→21:38)
[2018-08-15 05:10] LABS: CREATININE 1.04 mg/dL (0.7-1.3); VANCOMYCIN,TROUGH 16.1 mcg/mL (5.0-10.0)
[2018-08-15] MEDS: VANCOMYCIN 2,000 MG in SODIUM CHLORIDE 0.9% 500 ML IV SCH (05:20)
[2018-08-15] MEDS ORDERED: BUPIVACAINE/PF 0.25% ONE (06:24)
[2018-08-15] MEDS ORDERED: EPINEPHRINE 1 MG/ML, 1ML ONE (06:24)
[2018-08-15] MEDS ORDERED: BUPIVACAINE/PF 0.5% ONE (06:24)
[2018-08-15] MEDS ORDERED: MIDAZOLAM 1 MG/ML, 2ML ONE (06:33)
[2018-08-15] MEDS ORDERED: FENTANYL PF 250 MCG/5ML ONE (06:35)
[2018-08-15] MEDS ORDERED: FENTANYL PF 100 MCG/2ML IV PRN (07:00)
[2018-08-15] MEDS ORDERED: MEPERIDINE/PF 25MG/0.5ML IVPush PRN (07:00)
[2018-08-15] MEDS ORDERED: PROMETHAZINE 25 MG/ML, 1ML IV PRN (07:00)
[2018-08-15] MEDS: INSULIN LISPRO 100 UNITS/ML, PEN SQ-INSULIN SCH ×4 (07:00→20:31)
[2018-08-15] MEDS ORDERED: ACETAMINOPHEN 325 MG TABLET PO PRN (07:00)
[2018-08-15] MEDS ORDERED: LORazepam 2 MG/ML, 1ML IVPush PRN (07:00)
[2018-08-15] MEDS ORDERED: OXYcodone 5 MG/5 ML ORAL.SOL UDC PO PRN (07:00)
[2018-08-15] MEDS ORDERED: HYDROmorphone 2 MG/ML, 1ML IVPush PRN (07:00)
[2018-08-15] MEDS ORDERED: ONDANSETRON 2MG/ML, 2ML ONE (07:12)
[2018-08-15] MEDS ORDERED: PROPOFOL 10 MG/ML, 20ML ONE (07:12)
[2018-08-15] MEDS: SODIUM CHLORIDE FLUSH 10ML SYR IVF SCH ×2 (09:00→20:29)
[2018-08-15] MEDS: POLYETHYLENE GLYCOL 17 GM PACKET PO SCH (09:00)
[2018-08-15] MEDS: LISINOPRIL 10 MG TABLET PO SCH (09:00)
[2018-08-15] MEDS: DOCUSATE 100 MG CAPSULE PO SCH (09:00)
[2018-08-15 09:38] VITALS: BP 100/66
[2018-08-15] MEDS: morphine SULFATE 10 MG/ML, 1ML IVPush PRN ×4 (12:11→21:38)
[2018-08-15 14:06] VITALS: BP 110/68
[2018-08-15] MEDS: BACLOFEN 10 MG TABLET PO PRN (15:36)
[2018-08-15 19:30] VITALS: BP 105/69
[2018-08-16] MEDS: morphine SULFATE 10 MG/ML, 1ML IVPush PRN ×6 (00:58→21:10)
[2018-08-16] MEDS: BACLOFEN 10 MG TABLET PO PRN ×2 (00:58→14:40)
[2018-08-16] MEDS: PIPERACILLIN/TAZO/PMX 3.375GM 50 ML IV SCH ×4 (02:33→20:24)
[2018-08-16 02:35] VITALS: BP 108/67
[2018-08-16] MEDS: VANCOMYCIN 2,000 MG in SODIUM CHLORIDE 0.9% 500 ML IV SCH (05:08)
[2018-08-16] MEDS: HEPARIN 5,000 UNITS/ML, 1ML SQ SCH ×3 (05:39→22:00)
[2018-08-16] MEDS: INSULIN LISPRO 100 UNITS/ML, PEN SQ-INSULIN SCH ×4 (08:03→21:11)
[2018-08-16 08:16] VITALS: BP 111/70
[2018-08-16] MEDS: SODIUM CHLORIDE FLUSH 10ML SYR IVF SCH ×2 (08:24→20:24)
[2018-08-16] MEDS: POLYETHYLENE GLYCOL 17 GM PACKET PO SCH (08:25)
[2018-08-16] MEDS: LISINOPRIL 10 MG TABLET PO SCH (08:25)
[2018-08-16] MEDS: DOCUSATE 100 MG CAPSULE PO SCH (08:25)
[2018-08-16] MEDS: GABAPENTIN 300 MG CAPSULE PO PRN ×2 (08:26→21:10)
[2018-08-16 15:54] VITALS: BP 91/56
[2018-08-16 17:55] VITALS: BP 107/69
[2018-08-16 19:55] VITALS: BP 108/60
[2018-08-17 02:22] VITALS: BP 96/61
[2018-08-17] MEDS: PIPERACILLIN/TAZO/PMX 3.375GM 50 ML IV SCH ×4 (02:35→20:14)
[2018-08-17] MEDS: morphine SULFATE 10 MG/ML, 1ML IVPush PRN ×2 (02:36→07:50)
[2018-08-17] MEDS: VANCOMYCIN 2,000 MG in SODIUM CHLORIDE 0.9% 500 ML IV SCH (05:06)
[2018-08-17] MEDS: HEPARIN 5,000 UNITS/ML, 1ML SQ SCH ×3 (05:35→22:22)
[2018-08-17] MEDS: INSULIN LISPRO 100 UNITS/ML, PEN SQ-INSULIN SCH ×4 (07:49→20:19)
[2018-08-17 08:07] VITALS: BP 103/66
[2018-08-17] MEDS: LISINOPRIL 10 MG TABLET PO SCH (08:09)
[2018-08-17] MEDS: DOCUSATE 100 MG CAPSULE PO SCH (08:09)
[2018-08-17] MEDS: POLYETHYLENE GLYCOL 17 GM PACKET PO SCH (08:10)
[2018-08-17] MEDS: SODIUM CHLORIDE FLUSH 10ML SYR IVF SCH ×2 (08:10→20:19)
[2018-08-17] MEDS ORDERED: HYDROcodone/APAP 5/325 TABLET PO PRN (10:00)
[2018-08-17 11:33] LABS: HCT (SEDRATE) 37.4 % (39.2-51.8)
[2018-08-17] MEDS: BACLOFEN 10 MG TABLET PO PRN ×2 (11:40→20:15)
[2018-08-17 14:27] VITALS: BP 101/56
[2018-08-17 18:52] VITALS: BP 123/67
[2018-08-18 02:00] VITALS: BP 105/65
[2018-08-18] MEDS: PIPERACILLIN/TAZO/PMX 3.375GM 50 ML IV SCH ×4 (02:51→22:29)
[2018-08-18] MEDS: VANCOMYCIN 2,000 MG in SODIUM CHLORIDE 0.9% 500 ML IV SCH (05:36)
[2018-08-18 06:32] LABS: BASOPHILS # (AUTO) 0.07 x10^3/uL (0-0.1); BASOPHILS % (AUTO) 1 % (0-1); EOSINOPHILS # (AUTO) 0.24 x10^3/uL (0-0.4); EOSINOPHILS % (AUTO) 3 % (1-7); LYMPHOCYTES # (AUTO) 2.31 x10^3/uL (1-3.4); LYMPHOCYTES % (AUTO) 32 % (22-44); MD NO; MEAN CORPUSCULAR HEMOGLOBIN 29.3 pg (27.5-34.5); MEAN CORPUSCULAR HGB CONC 32.7 g/dL (33.2-36.2); MEAN CORPUSCULAR VOLUME 89.7 fL (81-97); MEAN PLATELET VOLUME 8.1 fL (7.4-10.4); MONOCYTES # (AUTO) 0.63 x10^3/uL (0.2-0.8); MONOCYTES % (AUTO) 9 % (2-9); NEUTROPHILS # (AUTO) 3.87 x10^3/uL (1.8-6.8); NEUTROPHILS % (AUTO) 54 % (42-75); PLATELET COUNT 250 x10^3/uL (130-400); RED BLOOD COUNT 4.12 x10^6/uL (4.38-5.82)
[2018-08-18 06:37] LABS: ALANINE AMINOTRANSFERASE 18 U/L (12-78); ALBUMIN 2.7 g/dL (3.4-5.0); ANION GAP 5 mmol/L (5-15); CHLORIDE 111 mmol/L (98-107)
[2018-08-18] MEDS: INSULIN LISPRO 100 UNITS/ML, PEN SQ-INSULIN SCH ×4 (07:00→22:41)
[2018-08-18 07:09] LABS: ALKALINE PHOSPHATASE 81 U/L (45-117); BILIRUBIN,TOTAL 0.6 mg/dL (0.2-1.0); CREATININE 1.15 mg/dL (0.7-1.3); TOTAL PROTEIN 6.6 g/dL (6.4-8.2)
[2018-08-18 08:03] VITALS: BP 102/61
[2018-08-18] MEDS: DOCUSATE 100 MG CAPSULE PO SCH (09:00)
[2018-08-18] MEDS: SODIUM CHLORIDE FLUSH 10ML SYR IVF SCH ×2 (09:00→22:30)
[2018-08-18] MEDS: POLYETHYLENE GLYCOL 17 GM PACKET PO SCH (09:00)
[2018-08-18] MEDS: BACLOFEN 10 MG TABLET PO PRN (09:02)
[2018-08-18] MEDS: HEPARIN 5,000 UNITS/ML, 1ML SQ SCH ×2 (09:03→16:50)
[2018-08-18] MEDS: LISINOPRIL 10 MG TABLET PO SCH (09:03)
[2018-08-18 13:58] VITALS: BP 95/56
[2018-08-18 18:54] VITALS: BP 96/59
[2018-08-19] MEDS: HEPARIN 5,000 UNITS/ML, 1ML SQ SCH ×2 (02:17→08:00)
[2018-08-19 03:11] VITALS: BP 119/69
[2018-08-19] MEDS: PIPERACILLIN/TAZO/PMX 3.375GM 50 ML IV SCH ×2 (04:51→10:58)
[2018-08-19] MEDS: VANCOMYCIN 2,000 MG in SODIUM CHLORIDE 0.9% 500 ML IV SCH (05:49)
[2018-08-19 06:39] LABS: HCT (SEDRATE) 37.1 % (39.2-51.8)
[2018-08-19] MEDS: INSULIN LISPRO 100 UNITS/ML, PEN SQ-INSULIN SCH ×2 (07:00→12:12)
[2018-08-19 07:41] VITALS: BP 106/70
[2018-08-19] MEDS: DOCUSATE 100 MG CAPSULE PO SCH (09:00)
[2018-08-19] MEDS: POLYETHYLENE GLYCOL 17 GM PACKET PO SCH (09:00)
[2018-08-19] MEDS: SODIUM CHLORIDE FLUSH 10ML SYR IVF SCH (09:00)
[2018-08-19] MEDS: BACLOFEN 10 MG TABLET PO PRN (10:58)
[2018-08-19] MEDS: LISINOPRIL 10 MG TABLET PO SCH (10:58)
[2018-08-19] MEDS ORDERED: AMOX-367 PO (12:22)
[2018-08-19] MEDS ORDERED: AMOXICILLIN/CLAV 500-125MG TABLET PO SCH (12:30)
[2018-08-19 13:02] VITALS: BP 114/74
== END 2018-08-19 15:25 | disposition home or self-care (01) | DRG 623 ==
LOC: ED 10:16 → EDIP 12:18 → 3NE 13:48
PROVIDERS: ADMIT Internal Medicine; ATTEND Internal Medicine
PROC: 0L8P0ZZ Division of Left Lower Leg Tendon, Open Approach (ICD-10-PCS; 2018-08-15)
PROC: 0JBR0ZZ Excision of Left Foot Subcutaneous Tissue and Fascia, Open Approach (ICD-10-PCS; principal; 2018-08-15 07:00)
DX: E11.621 Type 2 diabetes mellitus with foot ulcer (principal); I42.9 Cardiomyopathy, unspecified; L02.612 Cutaneous abscess of left foot; L03.116 Cellulitis of left lower limb; D64.9 Anemia, unspecified; E78.5 Hyperlipidemia, unspecified; F17.200 Nicotine dependence, unspecified, uncomplicated; I10 Essential (primary) hypertension; K21.9 Gastro-esophageal reflux disease without esophagitis; I25.10 Atherosclerotic heart disease of native coronary artery without angina pectoris; K40.90 Unilateral inguinal hernia, without obstruction or gangrene, not specified as recurrent; L97.529 Non-pressure chronic ulcer of other part of left foot with unspecified severity; R32 Unspecified urinary incontinence; Z59.0 Homelessness; Z82.49 Family history of ischemic heart disease and other diseases of the circulatory system; Z89.429 Acquired absence of other toe(s), unspecified side
CPT/HCPCS: 36415; 71045; 74018; 80048; 80053; 80202; 82040; 82565; 82962; 83036; 83605; 83735; 84100; 84439; 84443; 85025; 85651; 86140; 87040; 87070; 87077; 87186; 87205; 93970; 99285; A9585; G0378; J0171; J1644; J2250; J2405; J2543; J2704; J3010; J3370; J3490; J1815; J2270; J7040; J7120

== ENCOUNTER 2018-09-17 13:45 | Inpatient (IN) | payer MEDICAID ==
[~2018-09-17] VITALS: Ht 188 cm; Wt 102.7 kg
[~2018-09-17 13:45] MED LIST changes: +AMOX-367 PO; +GLIPIZIDE PO; +LISINOPRIL PO; +METFORMIN PO
[2018-09-17] MEDS ORDERED: VANCOMYCIN PER PHARMACY IV ONE (14:30)
[2018-09-17] MEDS ORDERED: ONDANSETRON 2MG/ML, 2ML IVPush ONE (14:30)
[2018-09-17] MEDS ORDERED: PIPERACILLIN/TAZO/PMX 3.375GM 50 ML IVPB ONE (14:30)
[2018-09-17] MEDS ORDERED: VANCOMYCIN 2,000 MG in SODIUM CHLORIDE 0.9% 500 ML IV ONE (14:30)
--- NOTE | 2018-09-17 14:30 | NUR ---
PT HAS BEEN WEARING A BOOT LLE S/P FOOT SURGERY IN JULY. PT STATES DEVELOPED A BLISTER ON INNER CALF FROM BOOT. LOWER EXTREMITY ERYTHEMA AND SWELLING, SWELLING INNTER MALLEOUS, ERYTHEMA, SWELLING TOP OF LEFT FOOT
[2018-09-17] MEDS ORDERED: ONDANSETRON 2MG/ML, 2ML ONE (14:36)
[2018-09-17] MEDS ORDERED: PIPERACILLIN/TAZO/PMX 3.375GM 50 ML ONE (14:36)
[2018-09-17] MEDS ORDERED: MORPHINE SULFATE 4 MG/ML, 1ML ONE (14:37)
[2018-09-17 14:40] LABS: BASOPHILS # (AUTO) 0.05 x10^3/uL (0-0.1); BASOPHILS % (AUTO) 1 % (0-1); EOSINOPHILS # (AUTO) 0.32 x10^3/uL (0-0.4); EOSINOPHILS % (AUTO) 5 % (1-7); HCT (SEDRATE) 37.4 % (39.2-51.8); LYMPHOCYTES # (AUTO) 1.76 x10^3/uL (1-3.4); LYMPHOCYTES % (AUTO) 26 % (22-44); MD NO; MEAN CORPUSCULAR HEMOGLOBIN 30.3 pg (27.5-34.5); MEAN CORPUSCULAR HGB CONC 32.7 g/dL (33.2-36.2); MEAN CORPUSCULAR VOLUME 92.9 fL (81-97); MEAN PLATELET VOLUME 8.3 fL (7.4-10.4); MONOCYTES # (AUTO) 0.59 x10^3/uL (0.2-0.8); MONOCYTES % (AUTO) 9 % (2-9); NEUTROPHILS # (AUTO) 4.16 x10^3/uL (1.8-6.8); NEUTROPHILS % (AUTO) 60 % (42-75); PLATELET COUNT 214 x10^3/uL (130-400); RED BLOOD COUNT 4.06 x10^6/uL (4.38-5.82); RED CELL DISTRIBUTION WIDTH 16.4 % (9.4-14.8)
[2018-09-17] MEDS: MORPHINE SULFATE 4 MG/ML, 1ML IVPush PRN ×2 (14:46→17:24)
[2018-09-17 14:51] LABS: ANION GAP 7 mmol/L (5-15); CALCIUM 8.7 mg/dL (8.5-10.1); CHLORIDE 108 mmol/L (98-107); CREATININE 1.22 mg/dL (0.7-1.3)
--- NOTE | 2018-09-17 15:30 | NUR ---
PT STATES LEFT LEG AND FOOT PAIN HAD BEEN 6/10 BEFORE BEING MEDICATED AND NOW VERY TOLERABLE AT 3/10. WATCHING TV, NO DISTRESS
--- NOTE | 2018-09-17 16:16 | NUR ---
Usman RN: Pt updated on admit status, 2nd abx hung.
--- NOTE | 2018-09-17 16:23 | NUR ---
Hospitalist Sarah @ [facility].
--- NOTE | 2018-09-17 16:59 | NUR ---
REPORT TO MEDINA HESTER. PT TO BE BE TRANSPORTED TO FLOOR
[2018-09-17] MEDS: INSULIN LISPRO 100 UNITS/ML, PEN SQ-INSULIN SCH ×2 (17:00→21:00)
[2018-09-17] MEDS ORDERED: ACETAMINOPHEN 325 MG TABLET PO PRN (17:00)
[2018-09-17] MEDS ORDERED: VANCOMYCIN PER PHARMACY MC PRN (17:00)
[2018-09-17] MEDS ORDERED: ONDANSETRON ODT 4 MG PO PRN (17:00)
[2018-09-17] MEDS ORDERED: ONDANSETRON 2MG/ML, 2ML IVPush PRN (17:00)
[2018-09-17] MEDS ORDERED: PHARMACOKINETIC MONITORING MC PRN (17:30)
[2018-09-17] MEDS ORDERED: PHARMACOKINETIC CONSULTATION MC ONE (17:30)
[2018-09-17 17:31] VITALS: BP 128/84
[2018-09-17] MEDS: OXYcodone/APAP 5/325MG TABLET PO PRN (19:44)
[2018-09-17] MEDS: ENOXAPARIN 40 MG/0.4 ML SQ SCH (19:44)
[2018-09-17] MEDS: AMPICILLIN/SULBACTAM 3 GM in SODIUM CHLORIDE 0.9% 100 ML IV SCH (19:45)
[2018-09-17 21:21] VITALS: BP 127/77
[2018-09-18] MEDS: OXYcodone/APAP 5/325MG TABLET PO PRN ×5 (00:45→19:43)
[2018-09-18 01:09] VITALS: BP 101/65
[2018-09-18] MEDS: AMPICILLIN/SULBACTAM 3 GM in SODIUM CHLORIDE 0.9% 100 ML IV SCH ×4 (02:26→19:42)
[2018-09-18 05:22] LABS: BASOPHILS # (AUTO) 0.05 x10^3/uL (0-0.1); MD NO
[2018-09-18 05:36] LABS: CHLORIDE 110 mmol/L (98-107)
[2018-09-18 05:45] LABS: ALANINE AMINOTRANSFERASE 15 U/L (12-78); ALBUMIN 2.5 g/dL (3.4-5.0); ALKALINE PHOSPHATASE 79 U/L (45-117); ANION GAP 5 mmol/L (5-15); BILIRUBIN,TOTAL 0.5 mg/dL (0.2-1.0); CALCIUM 8.1 mg/dL (8.5-10.1); CREATININE 0.98 mg/dL (0.7-1.3); TOTAL PROTEIN 5.7 g/dL (6.4-8.2)
[2018-09-18] MEDS: INSULIN LISPRO 100 UNITS/ML, PEN SQ-INSULIN SCH ×4 (07:00→19:44)
[2018-09-18 07:13] LABS: BASOPHILS % (AUTO) 1 % (0-1); EOSINOPHILS # (AUTO) 0.46 x10^3/uL (0-0.4); EOSINOPHILS % (AUTO) 8 % (1-7); LYMPHOCYTES # (AUTO) 1.65 x10^3/uL (1-3.4); LYMPHOCYTES % (AUTO) 29 % (22-44); MEAN CORPUSCULAR HEMOGLOBIN 30.4 pg (27.5-34.5); MEAN CORPUSCULAR HGB CONC 32.5 g/dL (33.2-36.2); MEAN CORPUSCULAR VOLUME 93.3 fL (81-97); MEAN PLATELET VOLUME 8.6 fL (7.4-10.4); MONOCYTES # (AUTO) 0.65 x10^3/uL (0.2-0.8); MONOCYTES % (AUTO) 11 % (2-9); NEUTROPHILS # (AUTO) 2.94 x10^3/uL (1.8-6.8); NEUTROPHILS % (AUTO) 51 % (42-75); PLATELET COUNT 199 x10^3/uL (130-400); RED BLOOD COUNT 3.69 x10^6/uL (4.38-5.82); RED CELL DISTRIBUTION WIDTH 15.8 % (9.4-14.8)
[2018-09-18 07:25] VITALS: BP 111/73
[2018-09-18] MEDS: LISINOPRIL 10 MG TABLET PO SCH (08:19)
[2018-09-18] MEDS ORDERED: GADOBUTROL 10 MMOL/10 ML PFS ONE (08:30)
[2018-09-18] MEDS: VANCOMYCIN 2,000 MG in SODIUM CHLORIDE 0.9% 500 ML IV SCH (10:12)
[2018-09-18] MEDS: SIMETHICONE 80 MG CHEW TAB PO PRN ×2 (12:45→19:43)
[2018-09-18] MEDS ORDERED: FAMOTIDINE 20 MG TABLET PO PRN (13:00)
[2018-09-18] MEDS ORDERED: DOCUSATE 100 MG CAPSULE ONE (13:32)
[2018-09-18] MEDS: DOCUSATE 100 MG CAPSULE PO SCH (13:39)
[2018-09-18 14:17] VITALS: BP 117/80
[2018-09-18] MEDS: ENOXAPARIN 40 MG/0.4 ML SQ SCH (17:57)
[2018-09-18 18:59] VITALS: BP 110/70
[2018-09-19] MEDS: OXYcodone/APAP 5/325MG TABLET PO PRN ×5 (01:25→20:51)
[2018-09-19] MEDS: AMPICILLIN/SULBACTAM 3 GM in SODIUM CHLORIDE 0.9% 100 ML IV SCH ×5 (01:25→22:12)
[2018-09-19 01:28] VITALS: BP 111/74
[2018-09-19] MEDS: VANCOMYCIN 2,000 MG in SODIUM CHLORIDE 0.9% 500 ML IV SCH ×2 (02:56→22:49)
[2018-09-19] MEDS: INSULIN LISPRO 100 UNITS/ML, PEN SQ-INSULIN SCH ×4 (07:00→19:57)
[2018-09-19 07:58] VITALS: BP 120/79
[2018-09-19] MEDS: LISINOPRIL 10 MG TABLET PO SCH (08:46)
[2018-09-19] MEDS: DOCUSATE 100 MG CAPSULE PO SCH ×3 (08:46→20:53)
[2018-09-19] MEDS: SIMETHICONE 80 MG CHEW TAB PO PRN (13:27)
[2018-09-19 13:59] VITALS: BP 117/73
[2018-09-19] MEDS: ENOXAPARIN 40 MG/0.4 ML SQ SCH (15:58)
[2018-09-19 19:21] VITALS: BP 108/69
[2018-09-20 04:00] VITALS: BP 117/75
[2018-09-20] MEDS: AMPICILLIN/SULBACTAM 3 GM in SODIUM CHLORIDE 0.9% 100 ML IV SCH ×4 (04:12→22:26)
[2018-09-20] MEDS: OXYcodone/APAP 5/325MG TABLET PO PRN ×5 (04:15→22:26)
[2018-09-20 04:57] LABS: BASOPHILS # (AUTO) 0.04 x10^3/uL (0-0.1); BASOPHILS % (AUTO) 1 % (0-1); EOSINOPHILS % (AUTO) 6 % (1-7); LYMPHOCYTES # (AUTO) 1.96 x10^3/uL (1-3.4); LYMPHOCYTES % (AUTO) 31 % (22-44); MD NO; MEAN CORPUSCULAR HEMOGLOBIN 30.8 pg (27.5-34.5); MEAN CORPUSCULAR VOLUME 93.3 fL (81-97); MEAN PLATELET VOLUME 7.9 fL (7.4-10.4); MONOCYTES # (AUTO) 0.62 x10^3/uL (0.2-0.8); MONOCYTES % (AUTO) 10 % (2-9); NEUTROPHILS # (AUTO) 3.37 x10^3/uL (1.8-6.8); NEUTROPHILS % (AUTO) 53 % (42-75); PLATELET COUNT 233 x10^3/uL (130-400); RED CELL DISTRIBUTION WIDTH 15.6 % (9.4-14.8)
[2018-09-20 05:08] LABS: ANION GAP 5 mmol/L (5-15); CALCIUM 8.5 mg/dL (8.5-10.1); CHLORIDE 110 mmol/L (98-107)
[2018-09-20 05:10] LABS: CREATININE 0.86 mg/dL (0.7-1.3)
[2018-09-20 07:42] VITALS: BP 111/72
[2018-09-20] MEDS: LISINOPRIL 10 MG TABLET PO SCH (09:41)
[2018-09-20] MEDS: INSULIN LISPRO 100 UNITS/ML, PEN SQ-INSULIN SCH ×4 (09:42→20:56)
[2018-09-20] MEDS: SIMETHICONE 80 MG CHEW TAB PO PRN (11:30)
[2018-09-20 13:30] VITALS: BP 111/72
[2018-09-20] MEDS: ENOXAPARIN 40 MG/0.4 ML SQ SCH (16:30)
[2018-09-20] MEDS: VANCOMYCIN 2,000 MG in SODIUM CHLORIDE 0.9% 500 ML IV SCH (17:55)
[2018-09-20 18:57] VITALS: BP 151/75
[2018-09-20] MEDS: DOCUSATE 100 MG CAPSULE PO SCH (22:26)
[2018-09-21 04:00] VITALS: BP 112/72
[2018-09-21] MEDS: AMPICILLIN/SULBACTAM 3 GM in SODIUM CHLORIDE 0.9% 100 ML IV SCH ×2 (04:53→11:24)
[2018-09-21] MEDS: INSULIN LISPRO 100 UNITS/ML, PEN SQ-INSULIN SCH ×4 (07:00→20:58)
[2018-09-21 07:35] VITALS: BP 129/82
[2018-09-21] MEDS: LISINOPRIL 10 MG TABLET PO SCH (08:43)
[2018-09-21] MEDS: DOCUSATE 100 MG CAPSULE PO SCH ×2 (08:43→20:57)
[2018-09-21] MEDS: OXYcodone/APAP 5/325MG TABLET PO PRN ×3 (12:46→21:50)
[2018-09-21] MEDS: VANCOMYCIN 2,000 MG in SODIUM CHLORIDE 0.9% 500 ML IV SCH (12:46)
[2018-09-21 13:11] VITALS: BP 107/67
[2018-09-21] MEDS: ENOXAPARIN 40 MG/0.4 ML SQ SCH (17:24)
[2018-09-21 19:44] VITALS: BP 112/73
[2018-09-22 01:11] VITALS: BP 100/60
[2018-09-22 05:38] LABS: BASOPHILS # (AUTO) 0.05 x10^3/uL (0-0.1); BASOPHILS % (AUTO) 1 % (0-1); EOSINOPHILS # (AUTO) 0.44 x10^3/uL (0-0.4); EOSINOPHILS % (AUTO) 7 % (1-7); LYMPHOCYTES # (AUTO) 2.19 x10^3/uL (1-3.4); LYMPHOCYTES % (AUTO) 32 % (22-44); MD NO; MEAN CORPUSCULAR HEMOGLOBIN 30.3 pg (27.5-34.5); MEAN CORPUSCULAR HGB CONC 32.6 g/dL (33.2-36.2); MEAN CORPUSCULAR VOLUME 92.9 fL (81-97); MEAN PLATELET VOLUME 7.8 fL (7.4-10.4); MONOCYTES # (AUTO) 0.51 x10^3/uL (0.2-0.8); MONOCYTES % (AUTO) 8 % (2-9); NEUTROPHILS # (AUTO) 3.59 x10^3/uL (1.8-6.8); NEUTROPHILS % (AUTO) 53 % (42-75); PLATELET COUNT 305 x10^3/uL (130-400); RED BLOOD COUNT 3.95 x10^6/uL (4.38-5.82); RED CELL DISTRIBUTION WIDTH 15.8 % (9.4-14.8)
[2018-09-22 05:40] LABS: ANION GAP 4 mmol/L (5-15); CALCIUM 9.1 mg/dL (8.5-10.1); CHLORIDE 109 mmol/L (98-107); CREATININE 0.93 mg/dL (0.7-1.3)
[2018-09-22 05:41] LABS: ALANINE AMINOTRANSFERASE 22 U/L (12-78); ALBUMIN 2.9 g/dL (3.4-5.0)
[2018-09-22 05:49] LABS: ALKALINE PHOSPHATASE 99 U/L (45-117); BILIRUBIN,TOTAL 0.2 mg/dL (0.2-1.0); TOTAL PROTEIN 6.5 g/dL (6.4-8.2)
[2018-09-22 05:53] LABS: HCT (SEDRATE) 36.7 % (39.2-51.8)
[2018-09-22] MEDS: INSULIN LISPRO 100 UNITS/ML, PEN SQ-INSULIN SCH ×4 (07:00→20:21)
[2018-09-22] MEDS: OXYcodone/APAP 5/325MG TABLET PO PRN ×4 (08:58→23:35)
[2018-09-22] MEDS: DOCUSATE 100 MG CAPSULE PO SCH ×2 (08:59→20:22)
[2018-09-22] MEDS: LISINOPRIL 10 MG TABLET PO SCH (08:59)
[2018-09-22] MEDS: VANCOMYCIN 2,000 MG in SODIUM CHLORIDE 0.9% 500 ML IV SCH (12:09)
[2018-09-22 12:13] LABS: HEMOGLOBIN A1C 6.4 % (4.2-6.3)
[2018-09-22 14:00] VITALS: BP 110/73
[2018-09-22] MEDS: ENOXAPARIN 40 MG/0.4 ML SQ SCH (16:55)
[2018-09-22 18:59] VITALS: BP 118/74
[2018-09-23 01:30] VITALS: BP 104/66
[2018-09-23 05:27] LABS: BASOPHILS # (AUTO) 0.04 x10^3/uL (0-0.1); BASOPHILS % (AUTO) 1 % (0-1); EOSINOPHILS # (AUTO) 0.53 x10^3/uL (0-0.4); EOSINOPHILS % (AUTO) 8 % (1-7); LYMPHOCYTES # (AUTO) 2.44 x10^3/uL (1-3.4); LYMPHOCYTES % (AUTO) 35 % (22-44); MD NO; MEAN CORPUSCULAR HEMOGLOBIN 30.3 pg (27.5-34.5); MEAN CORPUSCULAR HGB CONC 32.9 g/dL (33.2-36.2); MEAN CORPUSCULAR VOLUME 92.3 fL (81-97); MEAN PLATELET VOLUME 7.8 fL (7.4-10.4); MONOCYTES # (AUTO) 0.67 x10^3/uL (0.2-0.8); MONOCYTES % (AUTO) 10 % (2-9); NEUTROPHILS # (AUTO) 3.37 x10^3/uL (1.8-6.8); NEUTROPHILS % (AUTO) 48 % (42-75); PLATELET COUNT 315 x10^3/uL (130-400); RED BLOOD COUNT 3.94 x10^6/uL (4.38-5.82); RED CELL DISTRIBUTION WIDTH 15.8 % (9.4-14.8)
[2018-09-23 05:53] LABS: CALCIUM 8.5 mg/dL (8.5-10.1); CHLORIDE 110 mmol/L (98-107)
[2018-09-23 05:57] LABS: ALANINE AMINOTRANSFERASE 20 U/L (12-78); ALBUMIN 2.8 g/dL (3.4-5.0); ALKALINE PHOSPHATASE 94 U/L (45-117); ANION GAP 5 mmol/L (5-15); BILIRUBIN,TOTAL 0.2 mg/dL (0.2-1.0); CREATININE 0.89 mg/dL (0.7-1.3); TOTAL PROTEIN 6.5 g/dL (6.4-8.2)
[2018-09-23] MEDS: OXYcodone/APAP 5/325MG TABLET PO PRN ×4 (06:27→19:46)
[2018-09-23] MEDS: INSULIN LISPRO 100 UNITS/ML, PEN SQ-INSULIN SCH ×4 (07:00→20:56)
[2018-09-23] MEDS: LISINOPRIL 10 MG TABLET PO SCH (09:24)
[2018-09-23] MEDS: DOCUSATE 100 MG CAPSULE PO SCH ×2 (09:24→19:46)
[2018-09-23] MEDS: VANCOMYCIN 2,000 MG in SODIUM CHLORIDE 0.9% 500 ML IV SCH (12:00)
[2018-09-23 14:53] VITALS: BP 104/68
[2018-09-23] MEDS: ENOXAPARIN 40 MG/0.4 ML SQ SCH (15:35)
[2018-09-23 18:37] VITALS: BP 107/70
[2018-09-24] MEDS: OXYcodone/APAP 5/325MG TABLET PO PRN (00:05)
[2018-09-24 02:09] VITALS: BP 115/72
[2018-09-24] MEDS: INSULIN LISPRO 100 UNITS/ML, PEN SQ-INSULIN SCH ×2 (08:05→12:22)
[2018-09-24] MEDS ORDERED: SULF1TAB24 PO (09:03)
[2018-09-24] MEDS: LISINOPRIL 10 MG TABLET PO SCH (09:14)
[2018-09-24] MEDS: DOCUSATE 100 MG CAPSULE PO SCH (09:14)
[2018-09-24 10:12] VITALS: BP 106/70
[2018-09-24] MEDS: VANCOMYCIN 2,000 MG in SODIUM CHLORIDE 0.9% 500 ML IV SCH (12:00)
== END 2018-09-24 13:18 | disposition home or self-care (01) | DRG 603 ==
LOC: ED 15:06 → EDIP 16:03 → 3NE 16:58
PROVIDERS: ADMIT Internal Medicine; ATTEND Internal Medicine
DX: L03.116 Cellulitis of left lower limb (principal); D64.9 Anemia, unspecified; Z79.84 Long term (current) use of oral hypoglycemic drugs; I25.10 Atherosclerotic heart disease of native coronary artery without angina pectoris; E78.5 Hyperlipidemia, unspecified; K59.00 Constipation, unspecified; K30 Functional dyspepsia; E11.40 Type 2 diabetes mellitus with diabetic neuropathy, unspecified; F12.90 Cannabis use, unspecified, uncomplicated; I50.9 Heart failure, unspecified; I11.0 Hypertensive heart disease with heart failure; K21.9 Gastro-esophageal reflux disease without esophagitis; Z59.0 Homelessness; Z82.49 Family history of ischemic heart disease and other diseases of the circulatory system; Z86.711 Personal history of pulmonary embolism; Z87.891 Personal history of nicotine dependence; Z89.422 Acquired absence of other left toe(s); Z87.01 Personal history of pneumonia (recurrent)
CPT/HCPCS: 36415; 80048; 80053; 80202; 82040; 82962; 83036; 83605; 83735; 84100; 85025; 85651; 86140; 87040; 87070; 87077; 87186; 87205; 93922; 96374; 96375; A9585; G0378; J0295; J1650; J2405; J2543; J3370; J1815; J2270; J7040

== ENCOUNTER → 2018-09-27 | Outpatient (CLI) | payer MEDICAID ==
[~2018-09-27] MED LIST changes: +SULF1TAB24 PO
== END | disposition home or self-care (01) ==
LOC: WOUND 14:04
PROVIDERS: ATTEND Family Medicine
DX: T81.31XA Disruption of external operation (surgical) wound, not elsewhere classified, initial encounter (principal); E11.621 Type 2 diabetes mellitus with foot ulcer; L97.522 Non-pressure chronic ulcer of other part of left foot with fat layer exposed; E11.622 Type 2 diabetes mellitus with other skin ulcer; L97.821 Non-pressure chronic ulcer of other part of left lower leg limited to breakdown of skin; L03.116 Cellulitis of left lower limb; E11.40 Type 2 diabetes mellitus with diabetic neuropathy, unspecified; E11.69 Type 2 diabetes mellitus with other specified complication; M86.9 Osteomyelitis, unspecified; I11.0 Hypertensive heart disease with heart failure; I50.9 Heart failure, unspecified; L84 Corns and callosities; E78.5 Hyperlipidemia, unspecified; I42.9 Cardiomyopathy, unspecified; J45.909 Unspecified asthma, uncomplicated; K21.9 Gastro-esophageal reflux disease without esophagitis; I25.10 Atherosclerotic heart disease of native coronary artery without angina pectoris; F41.9 Anxiety disorder, unspecified; Z87.891 Personal history of nicotine dependence; Z89.421 Acquired absence of other right toe(s); Z86.711 Personal history of pulmonary embolism; Z79.84 Long term (current) use of oral hypoglycemic drugs; Z86.718 Personal history of other venous thrombosis and embolism; Y92.89 Other specified places as the place of occurrence of the external cause; Y83.8 Other surgical procedures as the cause of abnormal reaction of the patient, or of later complication, without mention of misadventure at the time of the procedure
CPT/HCPCS: 97597; 97598; 99215

== ENCOUNTER → 2018-10-04 | Outpatient (CLI) | payer MEDICAID | END | disposition home or self-care (01) | LOC: WOUND 10:32 | PROVIDERS: ATTEND Family Medicine | DX: E11.621 Type 2 diabetes mellitus with foot ulcer (principal); L97.522 Non-pressure chronic ulcer of other part of left foot with fat layer exposed; L03.116 Cellulitis of left lower limb; E11.69 Type 2 diabetes mellitus with other specified complication; M86.9 Osteomyelitis, unspecified; E11.40 Type 2 diabetes mellitus with diabetic neuropathy, unspecified; I11.0 Hypertensive heart disease with heart failure; I50.9 Heart failure, unspecified; L84 Corns and callosities; J45.909 Unspecified asthma, uncomplicated; E78.5 Hyperlipidemia, unspecified; I42.9 Cardiomyopathy, unspecified; K21.9 Gastro-esophageal reflux disease without esophagitis; I25.10 Atherosclerotic heart disease of native coronary artery without angina pectoris; F12.10 Cannabis abuse, uncomplicated; F41.9 Anxiety disorder, unspecified; Z89.422 Acquired absence of other left toe(s); Z89.421 Acquired absence of other right toe(s); Z87.891 Personal history of nicotine dependence; Z86.711 Personal history of pulmonary embolism; Z79.84 Long term (current) use of oral hypoglycemic drugs; Z86.718 Personal history of other venous thrombosis and embolism | CPT/HCPCS: 97597 ==

== ENCOUNTER 2018-10-18 09:11 | Emergency (ER) | payer MEDICAID ==
[~2018-10-18] VITALS: Ht 188 cm; Wt 110.0 kg
--- NOTE | 2018-10-18 09:42 | NUR ---
PT AMBULATORY TO ROOM 41 WITH COMPLAINTS OF "INFECTION" TO LEFT FOOT DM ULCER. PT STATES HE WENT TO WOUND CARE THIS MORNING WHERE THEY BANDAGED HIS FOOT BUT HE FEELS LIKE HE IS GETTING AN INFECTION. STATES HE WAS DIZZY AND LIGHTHEADED EARLIER THIS WEEK AND FELL WHEN GOING TO THE BATHROOM. SAYS HE JUST DOESN'T FEEL RIGHT AND SOMETIMES THERE IS BURNING IN HIS LEFT FOOT. FOOT SEEN AND EXAMINED. PT NOT IN RESPIRATORY DISTRESS. DENIES PAIN AT THIS TIME. PA AT BEDSIDE TO SEE PT AND UPDATE PT ON POC.
[2018-10-18 10:06] LABS: BASOPHILS # (AUTO) 0.05 x10^3/uL (0-0.1); BASOPHILS % (AUTO) 1 % (0-1); EOSINOPHILS # (AUTO) 0.18 x10^3/uL (0-0.4); EOSINOPHILS % (AUTO) 2 % (1-7); LYMPHOCYTES # (AUTO) 1.83 x10^3/uL (1-3.4); LYMPHOCYTES % (AUTO) 21 % (22-44); MD NO; MEAN CORPUSCULAR HEMOGLOBIN 29.4 pg (27.5-34.5); MEAN CORPUSCULAR HGB CONC 32.3 g/dL (33.2-36.2); MEAN CORPUSCULAR VOLUME 91.2 fL (81-97); MEAN PLATELET VOLUME 7.4 fL (7.4-10.4); MONOCYTES # (AUTO) 0.54 x10^3/uL (0.2-0.8); MONOCYTES % (AUTO) 6 % (2-9); NEUTROPHILS # (AUTO) 6.18 x10^3/uL (1.8-6.8); NEUTROPHILS % (AUTO) 70 % (42-75); PLATELET COUNT 254 x10^3/uL (130-400); RED BLOOD COUNT 4.33 x10^6/uL (4.38-5.82); RED CELL DISTRIBUTION WIDTH 15.5 % (9.4-14.8)
[2018-10-18 10:15] LABS: ALBUMIN 3.3 g/dL (3.4-5.0); ANION GAP 7 mmol/L (5-15); CALCIUM 8.8 mg/dL (8.5-10.1); CHLORIDE 106 mmol/L (98-107); CREATININE 1.13 mg/dL (0.7-1.3)
--- NOTE | 2018-10-18 10:33 | NUR ---
VSS. MCNAIR. PT DENIES NEEDS AT THIS TIME. CALL LIGHT IN REACH.
[2018-10-18 11:16] VITALS: BP 116/67
== END 2018-10-18 11:27 | disposition home or self-care (01) ==
LOC: ED 10:36
DX: L89.893 Pressure ulcer of other site, stage 3 (principal); E78.5 Hyperlipidemia, unspecified; I50.9 Heart failure, unspecified; J45.909 Unspecified asthma, uncomplicated; E11.40 Type 2 diabetes mellitus with diabetic neuropathy, unspecified; E66.8 Other obesity; I11.0 Hypertensive heart disease with heart failure
CPT/HCPCS: 36415; 80048; 82040; 85025; 99284

== ENCOUNTER → 2018-10-18 | Outpatient (CLI) | payer MEDICAID | END | disposition home or self-care (01) | LOC: WOUND 07:57 | PROVIDERS: ATTEND Family Medicine | DX: E11.621 Type 2 diabetes mellitus with foot ulcer (principal); L97.522 Non-pressure chronic ulcer of other part of left foot with fat layer exposed; L03.116 Cellulitis of left lower limb; E11.69 Type 2 diabetes mellitus with other specified complication; M86.9 Osteomyelitis, unspecified; E11.40 Type 2 diabetes mellitus with diabetic neuropathy, unspecified; I11.0 Hypertensive heart disease with heart failure; I50.9 Heart failure, unspecified; L84 Corns and callosities; J45.909 Unspecified asthma, uncomplicated; E78.5 Hyperlipidemia, unspecified; I42.9 Cardiomyopathy, unspecified; K21.9 Gastro-esophageal reflux disease without esophagitis; I25.10 Atherosclerotic heart disease of native coronary artery without angina pectoris; F12.10 Cannabis abuse, uncomplicated; F41.9 Anxiety disorder, unspecified; Z89.422 Acquired absence of other left toe(s); Z89.421 Acquired absence of other right toe(s); Z87.891 Personal history of nicotine dependence; Z86.711 Personal history of pulmonary embolism; Z79.84 Long term (current) use of oral hypoglycemic drugs; Z86.718 Personal history of other venous thrombosis and embolism | CPT/HCPCS: 97597 ==

== ENCOUNTER → 2018-10-25 | Outpatient (CLI) | payer MEDICAID | END | disposition home or self-care (01) | LOC: WOUND 10:23 | PROVIDERS: ATTEND Family Medicine | DX: T81.31XA Disruption of external operation (surgical) wound, not elsewhere classified, initial encounter (principal); E11.621 Type 2 diabetes mellitus with foot ulcer; L97.522 Non-pressure chronic ulcer of other part of left foot with fat layer exposed; L03.116 Cellulitis of left lower limb; E11.69 Type 2 diabetes mellitus with other specified complication; M86.9 Osteomyelitis, unspecified; E11.40 Type 2 diabetes mellitus with diabetic neuropathy, unspecified; I11.0 Hypertensive heart disease with heart failure; I50.9 Heart failure, unspecified; L84 Corns and callosities; J45.909 Unspecified asthma, uncomplicated; E78.5 Hyperlipidemia, unspecified; I42.9 Cardiomyopathy, unspecified; K21.9 Gastro-esophageal reflux disease without esophagitis; I10 Essential (primary) hypertension; F12.10 Cannabis abuse, uncomplicated; F41.9 Anxiety disorder, unspecified; Z89.422 Acquired absence of other left toe(s); Z89.421 Acquired absence of other right toe(s); Z87.891 Personal history of nicotine dependence; Z86.711 Personal history of pulmonary embolism; Z79.84 Long term (current) use of oral hypoglycemic drugs; Z86.718 Personal history of other venous thrombosis and embolism; Y92.89 Other specified places as the place of occurrence of the external cause; Y83.8 Other surgical procedures as the cause of abnormal reaction of the patient, or of later complication, without mention of misadventure at the time of the procedure | CPT/HCPCS: 97597 ==

== ENCOUNTER 2018-11-05 12:51 | Inpatient (IN) | payer MEDICAID ==
[~2018-11-05] VITALS: Ht 188 cm; Wt 112.0 kg
--- NOTE | 2018-11-05 13:05 | NUR ---
RLQ ABD, R GROIN, R FLANK PAIN UPON AWAKENING THIS AM. DX WITH HERNIA IN MAY. PAINFUL/PALPABLE MASS TO RIGHT GROIN (GRAPEFRUIT SIZE). PATIENT REPORT 02/06 PAIN HAS NOT BEEN TAKING ANY OF HIS HOME MEDS X 3 DAY LAST MEAL: 7AM YOGURT/ORANGES/EGGS
[2018-11-05] MEDS ORDERED: ONDANSETRON 2MG/ML, 2ML ONE (13:29)
[2018-11-05] MEDS ORDERED: MORPHINE SULFATE 4 MG/ML, 1ML ONE ×2 (13:30→13:52)
[2018-11-05] MEDS ORDERED: SODIUM CHLORIDE FLUSH 10ML SYR IVF ONE (13:30)
[2018-11-05] MEDS ORDERED: ONDANSETRON 2MG/ML, 2ML IVPush ONE (13:30)
[2018-11-05] MEDS: MORPHINE SULFATE 4 MG/ML, 1ML IVPush PRN ×5 (13:38→23:28)
--- NOTE | 2018-11-05 13:50 | NUR ---
LAB AT BEDSIDE
--- NOTE | 2018-11-05 13:55 | NUR ---
patient remains in 02/06 pain-per order-remedicated w/ 2nd dose of morphine To go to CT shortly
[2018-11-05 13:56] LABS: BASOPHILS # (AUTO) 0.05 x10^3/uL (0-0.1); BASOPHILS % (AUTO) 1 % (0-1); EOSINOPHILS # (AUTO) 0.09 x10^3/uL (0-0.4); EOSINOPHILS % (AUTO) 1 % (1-7); LYMPHOCYTES # (AUTO) 1.97 x10^3/uL (1-3.4); LYMPHOCYTES % (AUTO) 20 % (22-44); MD NO; MEAN CORPUSCULAR HEMOGLOBIN 30.2 pg (27.5-34.5); MEAN CORPUSCULAR HGB CONC 33.3 g/dL (33.2-36.2); MEAN CORPUSCULAR VOLUME 90.8 fL (81-97); MEAN PLATELET VOLUME 7.9 fL (7.4-10.4); MONOCYTES # (AUTO) 0.57 x10^3/uL (0.2-0.8); MONOCYTES % (AUTO) 6 % (2-9); NEUTROPHILS # (AUTO) 6.99 x10^3/uL (1.8-6.8); NEUTROPHILS % (AUTO) 72 % (42-75); PLATELET COUNT 298 x10^3/uL (130-400); RED BLOOD COUNT 4.32 x10^6/uL (4.38-5.82); RED CELL DISTRIBUTION WIDTH 15.3 % (9.4-14.8)
[2018-11-05 14:06] LABS: ALANINE AMINOTRANSFERASE 17 U/L (12-78); ALBUMIN 3.3 g/dL (3.4-5.0); ANION GAP 7 mmol/L (5-15); CALCIUM 9.1 mg/dL (8.5-10.1); CHLORIDE 108 mmol/L (98-107); CREATININE 1.01 mg/dL (0.7-1.3)
[2018-11-05 14:08] LABS: ALKALINE PHOSPHATASE 127 U/L (45-117); BILIRUBIN,TOTAL 0.3 mg/dL (0.2-1.0); TOTAL PROTEIN 7.3 g/dL (6.4-8.2)
--- NOTE | 2018-11-05 14:40 | NUR ---
VOIDED 600ML OF CONCENTRATED URINE-SAMPLE SENT VITALS REMAIN NORMALPATIENT REPORTS PAIN REMAINS 10/10-HOWEVER SLEEPING WHEN NOT ENGANGED. UPDATED POC
[2018-11-05 14:53] LABS: MICROSCOPIC NOT IND
[2018-11-05 14:57] LABS: CULTURE INDICATED? NO
--- NOTE | 2018-11-05 15:05 | NUR ---
REPORT TO NIEVES HESTER
--- NOTE | 2018-11-05 15:42 | NUR ---
PT ON CELL PHONE, PRESENTING COMFORTABLE. REPORT TO SHAWNA HESTER. PT TO BE TRANSPORTED TO FLOOR.
[2018-11-05 16:13] VITALS: BP 128/69
[2018-11-05] MEDS ORDERED: MIDAZOLAM 1 MG/ML, 2ML ONE (17:57)
[2018-11-05] MEDS ORDERED: FENTANYL PF 250 MCG/5ML ONE (17:57)
[2018-11-05] MEDS ORDERED: GLYCOPYRROLATE 0.2MG/1ML, 5ML ONE (17:58)
[2018-11-05] MEDS ORDERED: CEFAZOLIN 1,000 MG ONE (17:58)
[2018-11-05] MEDS ORDERED: PROPOFOL 10 MG/ML, 20ML ONE (17:58)
[2018-11-05] MEDS ORDERED: SUCCINYLCHOLINE 20 MG/ML, 10ML ONE (17:58)
[2018-11-05] MEDS ORDERED: ROCURONIUM 10MG/ML,5ML ONE (17:58)
[2018-11-05] MEDS ORDERED: NEOSTIGMINE 1 MG/ML, 10ML ONE (17:58)
[2018-11-05] MEDS ORDERED: PROMETHAZINE 25 MG/ML, 1ML IV PRN (18:00)
[2018-11-05] MEDS ORDERED: HYDROmorphone 2 MG/ML, 1ML IVPush PRN (18:00)
[2018-11-05] MEDS ORDERED: ACETAMINOPHEN 325 MG TABLET PO PRN (18:00)
[2018-11-05] MEDS ORDERED: HALOPERIDOL 5 MG/ML IV PRN (18:00)
[2018-11-05] MEDS ORDERED: hydrALAzine 20 MG/ML, 1ML IV PRN (18:00)
[2018-11-05] MEDS ORDERED: OXYcodone 5 MG/5 ML ORAL.SOL UDC PO PRN (18:00)
[2018-11-05] MEDS ORDERED: ONDANSETRON ODT 8 MG PO PRN (18:00)
[2018-11-05] MEDS ORDERED: PROMETHAZINE 25 MG/ML, 1ML IM PRN ×2 (18:00)
[2018-11-05] MEDS ORDERED: MEPERIDINE/PF 25MG/0.5ML IVPush PRN (18:00)
[2018-11-05] MEDS ORDERED: MORPHINE SULFATE 4 MG/ML, 1ML IVPush PRN (18:00)
[2018-11-05] MEDS ORDERED: PROMETHAZINE 12.5 MG SUPP PR PRN (18:00)
[2018-11-05] MEDS ORDERED: PROMETHAZINE 25 MG SUPP PR PRN (18:00)
[2018-11-05] MEDS ORDERED: FENTANYL PF 100 MCG/2ML IV PRN (18:00)
[2018-11-05] MEDS ORDERED: ONDANSETRON 2MG/ML, 2ML IV PRN (18:00)
[2018-11-05] MEDS ORDERED: LABETALOL 5 MG/ML SYRINGE IV PRN (18:00)
[2018-11-05] MEDS ORDERED: BUPIVACAINE/EPI 0.5% 1:200K ONE (18:07)
[2018-11-05] MEDS ORDERED: PHENYLEPHRINE 10 MG/ML ONE (18:15)
[2018-11-05] MEDS ORDERED: FENTANYL PF 100 MCG/2ML ONE ×2 (18:57→19:33)
[2018-11-05] MEDS ORDERED: MEPERIDINE/PF 25MG/ML,1ML ONE (19:33)
[2018-11-05] MEDS ORDERED: OXYcodone 5 MG/5 ML ORAL.SOL UDC ONE (19:33)
[2018-11-05] MEDS ORDERED: morphine SULFATE 10 MG/ML, 1ML ONE (20:06)
[2018-11-05] MEDS ORDERED: NITROGLYCERIN SINGLE TAB 0.4 MG SL ONE ×2 (20:20→20:30)
[2018-11-05 22:13] VITALS: BP 140/90
[2018-11-05] MEDS ORDERED: DIPHENHYDRAMINE 25 MG CAPSULE PO PRN (22:30)
[2018-11-05] MEDS ORDERED: OXYcodone/APAP 5/325MG TABLET PO PRN (22:30)
[2018-11-05] MEDS ORDERED: ONDANSETRON 2MG/ML, 2ML IVPush PRN (22:30)
[2018-11-05 22:57] LABS: TROPONIN I < 0.015 ng/mL (0.000-0.045)
[2018-11-06] MEDS ORDERED: PANTOPRAZOLE 40 MG IV IVPush ONE
[2018-11-06] MEDS ORDERED: MAALOX/HYOSCYAMINE/LIDOCAINE 45 ML BTL PO ONE
[2018-11-06 00:30] VITALS: BP 116/72
[2018-11-06] MEDS: MORPHINE SULFATE 4 MG/ML, 1ML IVPush PRN ×2 (02:16→05:39)
[2018-11-06 03:58] VITALS: BP 105/69
[2018-11-06 06:05] LABS: TROPONIN I < 0.015 ng/mL (0.000-0.045)
[2018-11-06 06:42] VITALS: BP 109/72
[2018-11-06] MEDS ORDERED: OMNIPAQUE 350 MG/ML, 100ML BOTTLE ONE (07:37)
[2018-11-06 09:42] LABS: BASOPHILS # (AUTO) 0.02 x10^3/uL (0-0.1); BASOPHILS % (AUTO) 0 % (0-1); EOSINOPHILS # (AUTO) 0.18 x10^3/uL (0-0.4); EOSINOPHILS % (AUTO) 2 % (1-7); LYMPHOCYTES # (AUTO) 1.49 x10^3/uL (1-3.4); LYMPHOCYTES % (AUTO) 20 % (22-44); MD NO; MEAN CORPUSCULAR HEMOGLOBIN 29.3 pg (27.5-34.5); MEAN CORPUSCULAR HGB CONC 32.2 g/dL (33.2-36.2); MEAN CORPUSCULAR VOLUME 91.1 fL (81-97); MEAN PLATELET VOLUME 7.6 fL (7.4-10.4); MONOCYTES # (AUTO) 0.61 x10^3/uL (0.2-0.8); MONOCYTES % (AUTO) 8 % (2-9); NEUTROPHILS # (AUTO) 5.18 x10^3/uL (1.8-6.8); NEUTROPHILS % (AUTO) 69 % (42-75); PLATELET COUNT 258 x10^3/uL (130-400); RED BLOOD COUNT 4.58 x10^6/uL (4.38-5.82); RED CELL DISTRIBUTION WIDTH 15.3 % (9.4-14.8)
[2018-11-06 09:52] LABS: ANION GAP 7 mmol/L (5-15); CALCIUM 8.9 mg/dL (8.5-10.1); CHLORIDE 101 mmol/L (98-107)
[2018-11-06 09:55] LABS: TROPONIN I < 0.015 ng/mL (0.000-0.045)
[2018-11-06 13:22] VITALS: BP 112/75
== END 2018-11-06 17:21 | disposition home or self-care (01) | DRG 351 ==
LOC: ED 14:31 → EDIP 14:32 → ED 14:36 → 4NOR 16:04 → 5SO 22:08
PROVIDERS: ADMIT Colon & Rectal Surgery; ATTEND Colon & Rectal Surgery
PROC: 0YU54JZ Supplement Right Inguinal Region with Synthetic Substitute, Percutaneous Endoscopic Approach (ICD-10-PCS; principal; 2018-11-05 17:00)
DX: K40.31 Unilateral inguinal hernia, with obstruction, without gangrene, recurrent (principal); I45.2 Bifascicular block; D17.6 Benign lipomatous neoplasm of spermatic cord; E11.40 Type 2 diabetes mellitus with diabetic neuropathy, unspecified; E11.51 Type 2 diabetes mellitus with diabetic peripheral angiopathy without gangrene; E11.621 Type 2 diabetes mellitus with foot ulcer; E78.5 Hyperlipidemia, unspecified; F12.90 Cannabis use, unspecified, uncomplicated; I11.0 Hypertensive heart disease with heart failure; I25.10 Atherosclerotic heart disease of native coronary artery without angina pectoris; I50.9 Heart failure, unspecified; J44.9 Chronic obstructive pulmonary disease, unspecified; L97.519 Non-pressure chronic ulcer of other part of right foot with unspecified severity; L97.529 Non-pressure chronic ulcer of other part of left foot with unspecified severity; E66.9 Obesity, unspecified; R45.1 Restlessness and agitation; Z89.422 Acquired absence of other left toe(s); I25.2 Old myocardial infarction; Z59.0 Homelessness; Z82.49 Family history of ischemic heart disease and other diseases of the circulatory system; Z86.711 Personal history of pulmonary embolism; Z68.31 Body mass index [BMI] 31.0-31.9, adult; Z89.421 Acquired absence of other right toe(s)
CPT/HCPCS: 36415; 71275; 74021; 80048; 80053; 81003; 82962; 83605; 84145; 84484; 85025; 85379; 93005; 96374; 96375; 99285; G0378; J0690; J2175; J2250; J2405; J2704; J2710; J3010; Q9967; C1727; C1781; C9113; J0330; J2270; J2370

== ENCOUNTER 2018-11-11 18:01 | Emergency (ER) | payer MEDICAID ==
[2018-11-11 18:57] LABS: BASOPHILS # (AUTO) 0.04 x10^3/uL (0-0.1); BASOPHILS % (AUTO) 0 % (0-1); EOSINOPHILS # (AUTO) 0.12 x10^3/uL (0-0.4); EOSINOPHILS % (AUTO) 1 % (1-7); LYMPHOCYTES # (AUTO) 1.13 x10^3/uL (1-3.4); LYMPHOCYTES % (AUTO) 9 % (22-44); MD NO; MEAN CORPUSCULAR HEMOGLOBIN 30.1 pg (27.5-34.5); MEAN CORPUSCULAR HGB CONC 32.7 g/dL (33.2-36.2); MEAN CORPUSCULAR VOLUME 92.2 fL (81-97); MEAN PLATELET VOLUME 7.3 fL (7.4-10.4); MONOCYTES # (AUTO) 0.86 x10^3/uL (0.2-0.8); MONOCYTES % (AUTO) 7 % (2-9); NEUTROPHILS # (AUTO) 10.69 x10^3/uL (1.8-6.8); NEUTROPHILS % (AUTO) 83 % (42-75); PLATELET COUNT 344 x10^3/uL (130-400); RED BLOOD COUNT 4.04 x10^6/uL (4.38-5.82); RED CELL DISTRIBUTION WIDTH 14.6 % (9.4-14.8)
[2018-11-11 19:00] LABS: ALBUMIN 3.1 g/dL (3.4-5.0); ANION GAP 8 mmol/L (5-15); CALCIUM 9.2 mg/dL (8.5-10.1); CHLORIDE 102 mmol/L (98-107); CREATININE 1.03 mg/dL (0.7-1.3)
--- NOTE | 2018-11-11 19:13 | NUR ---
RESEARCH SPEC: PT TO ROOM FROM LOBBY VIA W/C
--- NOTE | 2018-11-11 19:49 | NUR ---
Pt c/o bilateral foot wounds "not healing" and incresed pain, redness and swelling x past week. Pt reports history of osteomyitis and recent purulent draiange, "I can smell the infection and have the chills now". Pt placed in gown, vitals stable, afebrile.
--- NOTE | 2018-11-11 20:14 | NUR ---
RECEIVED REPORT FROM MIR MONTOYA TO ASSUME CARE OF PT. PT. WAS GOING TO HAVE A DEBRIDMENT DONE BY ANDREW MARCELO BUT PT. BECAME VERY VERBALLY AGRESSIVE WITH HER. DR. REBOLLEDO TO EVAL PT. AND PT. TO BE D/C AFTER THAT PER ANDREW MARCELO.
--- NOTE | 2018-11-11 20:24 | NUR ---
DR. REBOLLEDO AT TO DISCUSS POSSIBLE NEED FOR ADMISSION WITH PT. PT STATING THAT HE DOESN'T WANT TO BE ADMITTED TO HOSPITAL. DR. REBOLLEDO DISCUSSING RISKS OF LOSING FEET IF HE LEAVES.
[2018-11-11 21:04] VITALS: BP 112/61
--- NOTE | 2018-11-11 21:04 | NUR ---
IV ESTABLISHED FOR ADMISSION. PT. DENIES OTHER NEEDS AT THIS TIME.
--- NOTE | 2018-11-11 21:16 | NUR ---
TP RN: POC IS ADMIT. PT W/ NON-CONTRACTED INSURANCE. [facility] [place] WILLING TO ACCEPT PT. PT REFUSING TRANSFER TO [facility] [place] AND IS REQUESTING DC. ERP AWARE.
--- NOTE | 2018-11-11 21:31 | NUR ---
DR. REBOLLEDO BACK IN PER PT. REQUEST TO SPEAK WITH MD. PLAN TO D/C PT. REMAINS.
--- NOTE | 2018-11-11 21:36 | NUR ---
PT. SHOUTING AT THIS RN ABOUT HIS PROBLEMS WITH HIS INSURANCE. STATES "DON'T COME BACK IN THE ROOM. I AM GETTING THE HELL OUT OF HERE AND I WON'T BE BACK." PT. VERY VERBALLY AGRESSIVE WITH THIS RN PRIOR TO D/C.
--- NOTE | 2018-11-11 21:41 | NUR ---
PT. SHOUTING AT RN AGAIN. IV WAS REMOVED BY THIS RN AND PT. REMOVED TAPE AND GAUZE PLACED. PT. WAS BLEEING. NEW TAPE/GAUZE PLACED AT THIS TIME. PT. SHOUTING AND STATES "IF I AM YELLING AT YOU THEN CALL SECURITY ON ME!"
--- NOTE | 2018-11-11 21:44 | NUR ---
PT. ALSO STATES "TOOK YOUR DISCHARGE PAPERS AND THREW THEM IN THE TRASH." PT. ENCOURAGED TO TAKE PAPERS AND CONTIUES TO SHOUT AT THIS RN. AMBULATORY TO D/C DESK WITH STEADY GAIT.
== END 2018-11-11 21:49 | disposition home or self-care (01) ==
LOC: ED 20:52 → UNDOADMIN 20:53 → EDIP 20:53 → ED 21:49
DX: L03.116 Cellulitis of left lower limb (principal); L03.115 Cellulitis of right lower limb; E11.621 Type 2 diabetes mellitus with foot ulcer; L97.509 Non-pressure chronic ulcer of other part of unspecified foot with unspecified severity
CPT/HCPCS: 36415; 80048; 82040; 85025; 99284